=== PATIENT | male | born 1935 | race Caucasian/White ===

== ENCOUNTER 2016-10-30 07:06 | Day surgery (SDC) | payer MEDICARE ==
[2016-10-26 10:10] VITALS: BMI 22.9
[~2016-10-30 07:06] MED LIST: DEXAMETHASONE SOD PHOSPHATE 10 MG/ML 1 ML VIAL IV ONE; HYDROmorphone 1 MG/ML 1 ML SYRINGE IVP PRN; LACTATED RINGERS 1,000 ML IV SCH; ONDANSETRON 4 MG/2 ML VIAL IVP ONE
[2016-10-30] MEDS: CYCLOPENTOLATE 1% OPHTH SOLN 2 ML BTL OP ONE ×3 (07:43→08:04)
[2016-10-30] MEDS: FLURBIPROFEN 0.03% OPHTH DROPS 2.5 ML BTL OP ONE ×3 (07:45→08:08)
[2016-10-30] MEDS: PHENYLEPHRINE 10% OPHTH DROPS 5 ML BTL OP ONE ×3 (07:50→08:11)
[2016-10-30] MEDS ORDERED: LIDOCAINE 1% 20 ML VIAL (10MG/ML) FOR IV START INTRADERMA ONE (07:57)
[2016-10-30 07:58] LABS: Glucose,Whole Blood 139 mg/dL (75-99)
[2016-10-30] MEDS ORDERED: PROPOFOL 10 MG/ML 20 ML VIAL IV ONE (08:19)
[2016-10-30] MEDS ORDERED: LIDOCAINE 1% INJ 10MG/ML (20 ML MDV) ONE (08:19)
[2016-10-30 08:24] LABS: INR 2.3 (<1.1); Prothrombin Time 22.4 sec (9.0-12.0)
[2016-10-30] MEDS ORDERED: HYALURONATE SODIUM INTRAOCULAR 1 EACH SYRINGE (10MG/ML) INTRAOCULA ONE (08:26)
[2016-10-30] MEDS ORDERED: BALANCED SALT IRRIG SOLN COMB2 15 ML IRRIG.SOLN INTRAOCULA ONE (08:26)
[2016-10-30] MEDS ORDERED: EPINEPHrine (PF) 0.5 ML in BALANCED SALT IRRIG SOLN COMB2 500 ML IRRIGATION ONE (08:27)
--- NOTE | 2016-10-30 08:51 | P.OP ---
Date of Procedure: 10/30/16 Procedure(s) Performed: PREOPERATIVE DIAGNOSIS: Cataract, right eye. POSTOPERATIVE DIAGNOSIS: Cataract, right eye. OPERATION: Phacoemulsification cataract, right eye. DESCRIPTION OF PROCEDURE: The patient was taken to the preoperative holding area. Intravenous Propofol was given so as to bring about adequate sedation. The following mixture was given for local anesthesia: 5 mL of 2% lidocaine, 5 mL of 0.75% Marcaine, and 1 mL of Wydase. Approximately 4 mL was injected in the retrobulbar space of the surgical eye. Additional 1 mL was then directed to the temporal area of the surgical eye. This was performed to allow adequate neurological block of the facial muscles. The patient was revived and then taken into the operative room. The patient was prepped and draped in the usual sterile manner for the operative eye. A lid speculum was put into position. The conjunctiva was resected back from the limbus in the 12 o'clock position. Bleeding was controlled with electrocautery. A #69 blade was then used and a half-thickness scleral incision approximately 1-mm posterior to the limbus was made on bare sclera. This was shelved in the clear cornea using a crescent knife. Next a 15-degree blade was used to make a stab incision at the 3 o' clock position at the corneolimbal interface. Keratome blade was then used and the superior wound was extended into the anterior chamber. Viscoelastic was injected into the anterior chamber and to maintain its form. Next, a cystotome was used and a continuous anterior capsulotomy was made without difficulty. Hydrodissection using a blunt cannula and BSS was performed. Phaco probe was then employed and a groove extending from 12 to 6 o'clock in the lens was created. A Baldo wand was used through the stab incision so as to perform a divide and conquer technique. Next an irrigation aspiration probe was utilized and any residual cortex was removed from the eye. Again, viscoelastic was injected into the anterior chamber. An Abiodun posterior chamber lens implant was placed in the cartridge and injected into the anterior chamber without difficulty. The Sin[employer] hook was utilized to spin the lens into position and this was again performed without any difficulty. The irrigation and aspiration probe was again employed and any residual viscoelastic was removed from the eye. Then BSS was injected into the limbal stab incision and the anterior chamber re-inflated. The conjunctiva was reapproximated using electrocautery. One drop of 0.25% Timoptic was placed over the corneal along with TobraDex ophthalmic ointment. Two sterile patches and a Mcfarlane eye shield were taped into position. The patient was transported to the recovery room in stable condition. Pathology: none sent Condition: stable Disposition: same day
[2016-10-30 08:57] VITALS: BP 136/68; PULSE 79; RESP 16; TEMP 98.1
[2016-10-30] MEDS ORDERED: TIMOLOL 0.5% OPHTH SOLN (PF) 0.2 ML DROPERETTE OP ONE (23:00)
[2016-10-30] MEDS ORDERED: GENTAMICIN/PREDNISOL AC OPHTH OINT 3.5GM OPHTHALMIC ONE (23:00)
[2016-10-30] MEDS ORDERED: BUPIVACAINE (PF) 0.75% 5 ML, LIDOCAINE 4% (PF) 5 ML, HYALURONIDASE, HUMAN RECOMB 150 UNIT MISCELLANE ONE ×3 (23:00)
== END 2016-10-30 09:25 | disposition home or self-care (01) ==
LOC: OR 07:06
PROVIDERS: ATTEND Ophthalmology
DX: H26.9 Unspecified cataract (principal); I10 Essential (primary) hypertension; E78.5 Hyperlipidemia, unspecified; I25.10 Atherosclerotic heart disease of native coronary artery without angina pectoris; Z87.891 Personal history of nicotine dependence; I48.91 Unspecified atrial fibrillation; Z79.01 Long term (current) use of anticoagulants; E11.9 Type 2 diabetes mellitus without complications; Z79.4 Long term (current) use of insulin; Z79.84 Long term (current) use of oral hypoglycemic drugs; E07.9 Disorder of thyroid, unspecified; I25.2 Old myocardial infarction; Z79.82 Long term (current) use of aspirin; Z79.899 Other long term (current) drug therapy
CPT/HCPCS: 66984; 85610; V2632; J2001 ×2; J3470; J0171; J2704; 99152; 99153

== ENCOUNTER 2016-12-25 06:44 | Day surgery (SDC) | payer MEDICARE ==
[2016-12-21 09:57] VITALS: BMI 22.9
[~2016-12-25 06:44] MED LIST changes: -DEXAMETHASONE SOD PHOSPHATE 10 MG/ML 1 ML VIAL IV ONE; -HYDROmorphone 1 MG/ML 1 ML SYRINGE IVP PRN; -ONDANSETRON 4 MG/2 ML VIAL IVP ONE
[2016-12-25] MEDS: FLURBIPROFEN 0.03% OPHTH DROPS 2.5 ML BTL OP ONE ×3 (06:58→07:20)
[2016-12-25] MEDS ORDERED: LIDOCAINE 1% 20 ML VIAL (10MG/ML) FOR IV START INTRADERMA ONE (07:00)
[2016-12-25] MEDS: CYCLOPENTOLATE 1% OPHTH SOLN 2 ML BTL OP ONE ×3 (07:02→07:23)
[2016-12-25] MEDS: PHENYLEPHRINE 10% OPHTH DROPS 5 ML BTL OP ONE ×3 (07:05→07:26)
[2016-12-25 07:14] VITALS: RESP 16; TEMP 98.2
[2016-12-25 07:19] LABS: Glucose,Whole Blood 161 mg/dL (75-99)
[2016-12-25] MEDS ORDERED: PROPOFOL 10 MG/ML 20 ML VIAL IV ONE (07:37)
[2016-12-25] MEDS ORDERED: BALANCED SALT IRRIG SOLN COMB2 15 ML IRRIG.SOLN INTRAOCULA ONE (07:46)
[2016-12-25] MEDS ORDERED: HYALURONATE SODIUM INTRAOCULAR 1 EACH SYRINGE (10MG/ML) INTRAOCULA ONE (07:49)
[2016-12-25] MEDS ORDERED: EPINEPHrine (PF) 0.5 ML in BALANCED SALT IRRIG SOLN COMB2 500 ML IRRIGATION ONE (07:51)
--- NOTE | 2016-12-25 08:02 | P.OP ---
Date of Procedure: 12/25/16 Procedure(s) Performed: PREOPERATIVE DIAGNOSIS: Cataract, left eye. POSTOPERATIVE DIAGNOSIS: Cataract, left eye. OPERATION: Phacoemulsification cataract, left eye. DESCRIPTION OF PROCEDURE: The patient was taken to the preoperative holding area. Intravenous Propofol was given so as to bring about adequate sedation. The following mixture was given for local anesthesia: 5 mL of 2% lidocaine, 5 mL of 0.75% Marcaine, and 1 mL of Wydase. Approximately 4 mL was injected in the retrobulbar space of the surgical eye. Additional 1 mL was then directed to the temporal area of the surgical eye. This was performed to allow adequate neurological block of the facial muscles. The patient was revived and then taken into the operative room. The patient was prepped and draped in the usual sterile manner for the operative eye. A lid speculum was put into position. The conjunctiva was resected back from the limbus in the 12 o'clock position. Bleeding was controlled with electrocautery. A #69 blade was then used and a half-thickness scleral incision approximately 1-mm posterior to the limbus was made on bare sclera. This was shelved in the clear cornea using a crescent knife. Next a 15-degree blade was used to make a stab incision at the 3 o' clock position at the corneolimbal interface. Keratome blade was then used and the superior wound was extended into the anterior chamber. Viscoelastic was injected into the anterior chamber and to maintain its form. Next, a cystotome was used and a continuous anterior capsulotomy was made without difficulty. Hydrodissection using a blunt cannula and BSS was performed. Phaco probe was then employed and a groove extending from 12 to 6 o'clock in the lens was created. A Baldo wand was used through the stab incision so as to perform a divide and conquer technique. Next an irrigation aspiration probe was utilized and any residual cortex was removed from the eye. Again, viscoelastic was injected into the anterior chamber. An Abiodun posterior chamber lens implant was placed in the cartridge and injected into the anterior chamber without difficulty. The [employer] hook was utilized to spin the lens into position and this was again performed without any difficulty. The irrigation and aspiration probe was again employed and any residual viscoelastic was removed from the eye. Then BSS was injected into the limbal stab incision and the anterior chamber re-inflated. The conjunctiva was reapproximated using electrocautery. One drop of 0.25% Timoptic was placed over the corneal along with TobraDex ophthalmic ointment. Two sterile patches and a Mcfarlane eye shield were taped into position. The patient was transported to the recovery room in stable condition. Pathology: none sent Condition: stable Disposition: same day
[2016-12-25 08:18] VITALS: BP 119/72; PULSE 63
[2016-12-25 08:19] LABS: Glucose,Whole Blood 166 mg/dL (75-99)
[2016-12-25] MEDS ORDERED: TIMOLOL 0.5% OPHTH SOLN (PF) 0.2 ML DROPERETTE OP ONE (23:00)
[2016-12-25] MEDS ORDERED: GENTAMICIN/PREDNISOL AC OPHTH OINT 3.5GM OPHTHALMIC ONE (23:00)
[2016-12-25] MEDS ORDERED: BUPIVACAINE (PF) 0.75% 5 ML, LIDOCAINE 4% (PF) 5 ML, HYALURONIDASE, HUMAN RECOMB 150 UNIT MISCELLANE ONE ×3 (23:00)
== END 2016-12-25 08:40 | disposition home or self-care (01) ==
LOC: OR 06:44
PROVIDERS: ATTEND Ophthalmology
DX: H26.9 Unspecified cataract (principal); E11.9 Type 2 diabetes mellitus without complications; Z79.4 Long term (current) use of insulin; Z79.84 Long term (current) use of oral hypoglycemic drugs; I25.10 Atherosclerotic heart disease of native coronary artery without angina pectoris; I10 Essential (primary) hypertension; I48.91 Unspecified atrial fibrillation; Z79.01 Long term (current) use of anticoagulants; E07.9 Disorder of thyroid, unspecified; Z86.73 Personal history of transient ischemic attack (TIA), and cerebral infarction without residual deficits; Z79.82 Long term (current) use of aspirin; Z79.899 Other long term (current) drug therapy
CPT/HCPCS: 66984; V2632; J2001; J3470; J0171; J2704

== ENCOUNTER → 2017-02-18 | Outpatient (CLI) | payer MEDICARE ==
--- NOTE | 2017-02-18 15:57 | US ---
EXAMINATION TYPE: US venous doppler duplex LE LT DATE OF EXAM: 02/18/2017 3:46 PM COMPARISON: NONE CLINICAL HISTORY: Swelling LLE R22.42. Symptoms plus skin redness x 1.5 weeks. Patient D/C chemothera py drug then SIDE PERFORMED: Left TECHNIQUE: The lower extremity deep venous system is examined utilizing real time linear array sonog antoine with graded compression, doppler sonography and color-flow sonography. VESSELS IMAGED: Common Femoral Vein Deep Femoral Vein Greater Saphenous Vein * Femoral Vein Popliteal Vein Small Saphenous Vein * Proximal Calf Veins (* superficial vessels) Left Leg: Echoes are noted in Left Femoral Vein at valves, but vein compresses here, otherwise, is n egative for DVT. Multiple left groin nodes are seen with largest = 2.2 x 1.2 x 0.8cm. IMPRESSION: 1. There is echogenicity noted within the left superficial femoral venous valves. Small area of DVT n ot excluded correlate clinically. No evidence of occlusion and there is normal compressibility. 2. Inguinal adenopathy.
== END | disposition home or self-care (01) ==
LOC: RADUSWWP 15:16
PROVIDERS: ATTEND Internal Medicine Hematology & Oncology
DX: I87.8 Other specified disorders of veins (principal); R59.0 Localized enlarged lymph nodes

== ENCOUNTER → 2017-03-04 | Outpatient (CLI) | payer MEDICARE ==
[2017-03-04 18:38] LABS: Blood Urea Nitrogen 24 mg/dL (9-20); Non-African American GFR(MDRD) >60 (>60 ml/min/1.73 sqM)
--- NOTE | 2017-03-04 20:40 | CT ---
EXAMINATION TYPE: CT ChestAbdPelvis w con DATE OF EXAM: 03/04/2017 COMPARISON: 08/11/2016 HISTORY: Gastrointestinal stromal tumor of stomach. Evaluate lymph nodes. CT DLP: 1618.00 mGycm Automated exposure control for dose reduction was used. CONTRAST: CT scan of the chest, abdomen and pelvis is performed with Oral Contrast and with IV Contrast, patien t injected with 100 mL of Omnipaque 300. FINDINGS: The lungs are clear of consolidation. There is no pleural effusion. There is no sign of a pulmonary m ass. Heart is enlarged. There is no pericardial effusion. There is atherosclerotic vascular calcifica tion. The abdominal aorta and thoracic aorta are atheromatous. Ascending aorta measures 4 cm. There i s no evidence of dissection. There are no hilar masses. There is no mediastinal adenopathy. Liver shows no focal defect. Spleen is absent. There is no sign of pancreatic mass. Gallbladder appea rs normal. Bile ducts are not dilated. There is no adrenal mass. Kidneys show satisfactory contrast opacification. There is no hydronephrosi s. There is low-density material in the dependent stomach consistent with ingested food. I see no intestinal wall thickening. There are no dilated loops. There is a 1.5 cm exophytic rounded mass on the posterior left kidney. This appears stable compared t o old CT scan. I see no retroperitoneal adenopathy. Prostate is enlarged. Prostate measures almost 6 cm in diameter. There is no evidence of a bladder mass. I see no pelvic lymphadenopathy. I see no foc al bony destructive process. IMPRESSION: Atherosclerotic vascular disease. 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 Enlarged prostate. Stable exophytic thick-walled left renal cortical cys t. Cardiomegaly. No sign of recurrent tumor. Splenectomy is noted.
== END | disposition home or self-care (01) ==
LOC: RADCTMAIN 17:59
PROVIDERS: ATTEND Internal Medicine Hematology & Oncology
DX: I71.2 Thoracic aortic aneurysm, without rupture (principal); I70.90 Unspecified atherosclerosis; N40.0 Benign prostatic hyperplasia without lower urinary tract symptoms; N28.1 Cyst of kidney, acquired; I51.7 Cardiomegaly; Z90.81 Acquired absence of spleen
CPT/HCPCS: 82565; 84520; 71260; 74177; 36415; Q9967

== ENCOUNTER 2017-03-14 16:26 | Inpatient (IN) | payer MEDICARE ==
[2017-03-14] MEDS ORDERED: SODIUM CHLORIDE 0.9% 500 ML IV STA (16:54)
[2017-03-14] MEDS ORDERED: SODIUM CHLORIDE 0.9% 1,000 ML IV STA (16:54)
--- NOTE | 2017-03-14 17:00 | ED ---
Weakness HPI - General Chief complaint: Weakness Stated complaint: Near Syncope Time Seen by Provider: 03/14/17 16:47 Source: patient, EMS Mode of arrival: EMS - History of Present Illness Initial comments: This 81-year-old white male presents with a complaint of weakness. This apparently occurred this afternoon while he was golfing. He could not make it through his entire round of golf. He does relate that it was quite hot outside. He felt slightly lightheaded but did not have any presyncope or syncope. He apparently was diaphoretic at some point. He denies any chest pain or shortness of breath. He apparently made it home and his called EMS to bring him to the ER. Upon transport his heart rate apparently was down into the 30s. He denies any known previous bradycardia. He does have a cardiac history of previous cardiac stents approximately 6 years ago. He is in atrial fibrillation chronically. He denies any leg pain or swelling. No other complaints or modifying factors. He has had routine stress test in the recent past. His blood sugar was approximately 140 and route. He apparently was somewhat hypotensive at times. He states that he has been eating and drinking well over the past couple of days. It appears that he is on 3 chronotropic medications. - Related Data Home Medications Medication Instructions Recorded Confirmed Atorvastatin [Lipitor] 40 mg PO HS 07/19/16 03/14/17 Digoxin [Lanoxin] 125 mcg PO HS 07/19/16 03/14/17 Insulin Aspart [NovoLOG] See Protocol SQ QID PRN 07/19/16 03/14/17 Insulin Detemir [Levemir] 20 unit SQ QAM 07/19/16 03/14/17 Levothyroxine Sodium [Synthroid] 25 mcg PO [id number] 07/19/16 03/14/17 Lisinopril [Zestril] 20 mg PO DAILY 07/19/16 03/14/17 Warfarin [Coumadin] 3.75 mg PO MO 07/19/16 03/14/17 Warfarin [Coumadin] 7.5 mg PO [id number] 07/19/16 03/14/17 Diltiazem Oral [Cardizem*] 60 mg PO TID 10/26/16 03/14/17 Aspirin 325 mg PO DAILY 03/14/17 03/14/17 metFORMIN HCL 1,000 mg PO DAILY 03/14/17 03/14/17 Previous Rx's Medication Instructions Recorded Metoprolol Tartrate [Lopressor] 25 mg PO BID #60 tab 08/01/16 Allergies Allergy/AdvReac Type Severity Reaction Status Date / Time No Known Allergies Allergy Verified 03/14/17 17:27 Review of Systems ROS Statement: Those systems with pertinent positive or pertinent negative responses have been documented in the HPI. ROS Other: All systems not noted in ROS Statement are negative. Past Medical History Past Medical History: Atrial Fibrillation, Coronary Artery Disease (CAD), Cancer , CVA/TIA, Diabetes Mellitus, GI Bleed, Hypertension, Myocardial Infarction ([place]) , Osteoarthritis (OA), Prostate Disorder, Thyroid Disorder Additional Past Medical History / Comment(s): SOB w/activity, hx gastric cancer , had stroke 2015-some minimal left sided weakness Last Myocardial Infarction Date:: unknown History of Any Multi-Drug Resistant Organisms: None Reported Past Surgical History: Heart Catheterization With Stent, Hernia Repair, Orthopedic Surgery Additional Past Surgical History / Comment(s): 02/23/13 cardiac cath with stent , bilateral inguinal hernia repair, L middle finger colonoscopy, EGD, exp laparotomy splenectomy, partial gastrectomy Past Anesthesia/Blood Transfusion Reactions: No Reported Reaction Additional Past Anesthesia/Blood Transfusion Reaction / Comment(s): blood transfusion 07/20/16- no reaction Date of Last Stent Placement:: 02/23/13 Past Psychological History: No Psychological Hx Reported Smoking Status: Former smoker Past Alcohol Use History: Daily Past Drug Use History: None Reported - Past Family History Father Family Medical History: Cancer Additional Family Medical History / Comment(s): Father of leukemia at the age of 68yrs. pts mom had ra and lived to age 93 Mother Family Medical History: No Reported History Additional Family Medical History / Comment(s): Mother was healthy and at the age of 94 yrs. General Exam - General Exam Comments Initial Comments: GENERAL: The patient is well nourished and well hydrated. VITAL SIGNS: Heart rate, blood pressure, respiratory rate reviewed as recorded in nurse's notes. EYES: Pupils are round and reactive. Extraocular movements are intact. No conjunctival / lid redness or swelling. ENT: No external evidence of injury, swelling, or ecchymosis. Airway is patent. Throat is clear. NECK: Nontender. No swelling or evidence of injury. No subcutaneous emphysema. Trachea is midline. No thyroid mass. HEART: Bradycardic heart rate noted with a heart rate down to the high 30s at times. Good peripheral pulses. No peripheral edema noted. LUNGS/CHEST: Breath sounds clear and equal bilaterally. No rales, rhonchi, or wheezes. No ecchymosis, subcutaneous emphysema, or tenderness. ABDOMEN: Abdomen soft without tenderness. No palpable masses or organomegaly. No peritoneal signs. No abdominal wall swelling or ecchymosis. EXTREMITIES: No extremity tenderness. Normal muscle tone and function. No thoracolumbar tenderness. NEUROLOGIC: Sensation is grossly intact. Cranial nerve exam reveals face is symmetrical, tongue is midline, speech is clear. SKIN: No abrasions or ecchymosis is noted. No induration or masses noted. PSYCHIATRIC: Alert and oriented. Appropriate behavior and judgment. Course Vital Signs 03/14/17 03/14/17 03/14/17 16:28 16:40 16:47 Temperature 97.4 F L 97.0 F L Pulse Rate 44 L 53 L 80 Respiratory 16 16 16 Rate Blood Pressure 86/50 105/58 95/53 O2 Sat by Pulse 95 96 100 Oximetry 03/14/17 03/14/17 03/14/17 16:59 17:20 17:41 Temperature Pulse Rate 37 L 44 L 51 L Respiratory 16 18 16 Rate Blood Pressure 80/42 95/53 101/58 O2 Sat by Pulse 98 98 100 Oximetry 03/14/17 18:03 Temperature Pulse Rate 56 L Respiratory 16 Rate Blood Pressure 101/51 O2 Sat by Pulse 96 Oximetry Medical Decision Making - Medical Decision Making The patient was seen and examined. All diagnostics were reviewed. He is placed on a library monitor and this does show a decreased heart rate down into the high 30s at times. The EKG shows atrial fibrillation with slow ventricular response at a heart rate of 52. There is no acute ST-T wave changes noted. The QRS is 80 and the QTc interval is 409. The chest x-ray does not show any acute processes. The laboratory shows a mild anemia but otherwise no acute process. It appears that he does have symptoms potentially consistent with a symptomatic bradycardia. It is felt as though he benefit from admission to the hospital. He is reluctantly agreeable. Case will be discussed with internal medicine and cardiology consult will be obtained. - Lab Data Result diagrams: 03/14/17 16:45 03/14/17 16:45 Lab Results 03/14/17 03/14/17 03/14/17 Range/Units 16:45 16:45 16:45 WBC 8.7 (3.8-10.6) k/uL RBC 3.78 L (4.30-5.90) m/uL Hgb 11.8 L (13.0-17.5) gm/dL Hct 35.1 L (39.0-53.0) % MCV 92.8 (80.0-100.0) fL MCH 31.2 (25.0-35.0) pg MCHC 33.6 (31.0-37.0) g/dL RDW 17.7 H (11.5-15.5) % Plt Count 220 (150-450) k/uL Neutrophils % 72 % Lymphocytes % 13 % Monocytes % 11 % Eosinophils % 2 % Basophils % 0 % Neutrophils # 6.3 (1.3-7.7) k/uL Lymphocytes # 1.1 (1.0-4.8) k/uL Monocytes # 0.9 (0-1.0) k/uL Eosinophils # 0.2 (0-0.7) k/uL Basophils # 0.0 (0-0.2) k/uL Poikilocytosis Slight Anisocytosis Slight PT (9.0-12.0) sec INR (<1.1) APTT (22.0-30.0) sec Sodium 142 (137-145) mmol/L Potassium 4.3 (3.5-5.1) mmol/L Chloride 108 H (98-107) mmol/L Carbon Dioxide 22 (22-30) mmol/L Anion Gap 12 mmol/L BUN 27 H (9-20) mg/dL Creatinine 1.10 (0.66-1.25) mg/dL Est GFR (MDRD) Af Amer >60 (>60 ml/min/1.73 sqM) Est GFR (MDRD) Non-Af >60 (>60 ml/min/1.73 sqM) Glucose 144 H (74-99) mg/dL Calcium 9.3 (8.4-10.2) mg/dL Phosphorus 3.2 (2.5-4.5) mg/dL Magnesium 2.1 (1.6-2.3) mg/dL Total Bilirubin 0.7 (0.2-1.3) mg/dL AST 32 (17-59) U/L ALT 42 (21-72) U/L Alkaline Phosphatase 146 H (38-126) U/L Total Creatine Kinase 115 (55-170) U/L CK-MB (CK-2) 1.6 (0.0-2.4) ng/mL CK-MB (CK-2) Rel Index 1.4 Troponin I <0.012 (0.000-0.034) ng/mL Total Protein 6.4 (6.3-8.2) g/dL Albumin 3.8 (3.5-5.0) g/dL TSH 8.170 H (0.465-4.680) mIU/L Digoxin 0.6 ng/mL 03/14/17 Range/Units 16:45 WBC (3.8-10.6) k/uL RBC (4.30-5.90) m/uL Hgb (13.0-17.5) gm/dL Hct (39.0-53.0) % MCV (80.0-100.0) fL MCH (25.0-35.0) pg MCHC (31.0-37.0) g/dL RDW (11.5-15.5) % Plt Count (150-450) k/uL Neutrophils % % Lymphocytes % % Monocytes % % Eosinophils % % Basophils % % Neutrophils # (1.3-7.7) k/uL Lymphocytes # (1.0-4.8) k/uL Monocytes # (0-1.0) k/uL Eosinophils # (0-0.7) k/uL Basophils # (0-0.2) k/uL Poikilocytosis Anisocytosis PT 24.0 H (9.0-12.0) sec INR 2.5 (<1.1) APTT 27.5 (22.0-30.0) sec Sodium (137-145) mmol/L Potassium (3.5-5.1) mmol/L Chloride (98-107) mmol/L Carbon Dioxide (22-30) mmol/L Anion Gap mmol/L BUN (9-20) mg/dL Creatinine (0.66-1.25) mg/dL Est GFR (MDRD) Af Amer (>60 ml/min/1.73 sqM) Est GFR (MDRD) Non-Af (>60 ml/min/1.73 sqM) Glucose (74-99) mg/dL Calcium (8.4-10.2) mg/dL Phosphorus (2.5-4.5) mg/dL Magnesium (1.6-2.3) mg/dL Total Bilirubin (0.2-1.3) mg/dL AST (17-59) U/L ALT (21-72) U/L Alkaline Phosphatase (38-126) U/L Total Creatine Kinase (55-170) U/L CK-MB (CK-2) (0.0-2.4) ng/mL CK-MB (CK-2) Rel Index Troponin I (0.000-0.034) ng/mL Total Protein (6.3-8.2) g/dL Albumin (3.5-5.0) g/dL TSH (0.465-4.680) mIU/L Digoxin ng/mL Disposition Clinical Impression: Weakness, Bradycardia, Hypotension, Anemia, Dehydration Disposition: ADMITTED IP TO [facility] Condition: Fair Referrals: None,Stated [REFERRING] - 1-2 days Time of Disposition: 18:16
[2017-03-14] MEDS ORDERED: ONDANSETRON 4 MG/2 ML VIAL IVP STA (17:13)
[2017-03-14 17:15] LABS: INR 2.5 (<1.1); Partial Thromboplastin Time 27.5 sec (22.0-30.0)
[2017-03-14 17:17] LABS: Anisocytosis Slight; Basophils % (A) 0 %; CH 30.4; Eosinophils # (A) 0.2 k/uL (0-0.7); Eosinophils % (A) 2 %; HCT 35.1 % (39.0-53.0); HDW 3.49; HGB 11.8 gm/dL (13.0-17.5); Luc # (Auto) 0.16; Luc % (Auto) 2; Lymphocytes # (A) 1.1 k/uL (1.0-4.8); Lymphocytes % (A) 13 %; MCH 31.2 pg (25.0-35.0); MCHC 33.6 g/dL (31.0-37.0); MCV 92.8 fL (80.0-100.0); Mean Platelet Volume 8.6; Monocytes # (A) 0.9 k/uL (0-1.0); Monocytes % (A) 11 %; Neutrophils # (A) 6.3 k/uL (1.3-7.7); Neutrophils % (A) 72 %; Poikilocytosis Slight; RBC 3.78 m/uL (4.30-5.90); RDW 17.7 % (11.5-15.5); WBC 8.7 k/uL (3.8-10.6); WBC (Perox) 9.23
[2017-03-14 17:24] LABS: ALT 42 U/L (21-72); AST 32 U/L (17-59); Alkaline Phosphatase 146 U/L (38-126); Anion Gap 12 mmol/L; Blood Urea Nitrogen 27 mg/dL (9-20); Calcium 9.3 mg/dL (8.4-10.2); Carbon Dioxide 22 mmol/L (22-30); Chloride 108 mmol/L (98-107); Digoxin 0.6 ng/mL; Glucose 144 mg/dL (74-99); Magnesium 2.1 mg/dL (1.6-2.3); Non-African American GFR(MDRD) >60 (>60 ml/min/1.73 sqM); Phosphorous 3.2 mg/dL (2.5-4.5); Potassium 4.3 mmol/L (3.5-5.1); Sodium 142 mmol/L (137-145); Total Bilirubin 0.7 mg/dL (0.2-1.3); Total Protein 6.4 g/dL (6.3-8.2)
[2017-03-14 17:38] LABS: Creatine Kinase 115 U/L (55-170)
--- NOTE | 2017-03-14 17:42 | XR ---
EXAMINATION TYPE: XR chest 2V DATE OF EXAM: 03/14/2017 COMPARISON: 08/08/2016 HISTORY: Syncope TECHNIQUE: Frontal and lateral views of the chest are obtained. FINDINGS: Heart is enlarged. There is no gross heart failure. There is small linear density at the l eft lung base and right midlung. Thoracic aorta is atheromatous. There is no pleural effusion. Bony t horax is intact. IMPRESSION: Cardiomegaly. There is new bilateral mild subsegmental atelectasis compared to old exam. No heart failure.
[2017-03-14 17:51] LABS: Creatine Kinase MB 1.6 ng/mL (0.0-2.4); Troponin I <0.012 ng/mL (0.000-0.034)
[2017-03-14] MEDS ORDERED: METOCLOPRAMIDE 5 MG/ML 2 ML VIAL IVP STA (18:21)
[2017-03-14] MEDS ORDERED: ONDANSETRON 4 MG/2 ML VIAL IVP PRN (18:58)
[2017-03-14] MEDS ORDERED: ACETAMINOPHEN TAB 325 MG TAB PO PRN (18:58)
[2017-03-14] MEDS ORDERED: NALOXONE 0.4 MG/ML 1 ML VIAL IV PRN (18:58)
[2017-03-14 19:12] LABS: Glucose,Whole Blood 168 mg/dL (75-99)
[2017-03-14] MEDS ORDERED: PANTOPRAZOLE 40 MG TABLET PO STA (19:12)
[2017-03-14] MEDS ORDERED: WARFARIN 7.5 MG TAB PO SCH (20:00)
[2017-03-14 20:25] LABS: Glucose,Whole Blood 184 mg/dL (75-99)
[2017-03-14 20:58] VITALS: BMI 21.5
[2017-03-14] MEDS ORDERED: ATORVASTATIN 40 MG TAB PO SCH ×2 (21:00)
[2017-03-14] MEDS ORDERED: INSULIN LISPRO (humaLOG) 300 UNIT/3 ML VIAL SQ SCH (21:00)
[2017-03-14 21:21] LABS: Hemoglobin A1C 6.4 % (4.2-6.1)
[2017-03-14] MEDS: INSULIN LISPRO (humaLOG) 300 UNIT/3 ML VIAL SQ SCH (21:22)
[2017-03-14] MEDS: METOPROLOL TARTRATE 25 MG TAB PO SCH (21:22)
[2017-03-14 23:24] LABS: Creatine Kinase 105 U/L (55-170)
[2017-03-14 23:38] LABS: Creatine Kinase MB 1.4 ng/mL (0.0-2.4); Troponin I <0.012 ng/mL (0.000-0.034)
[2017-03-15 05:59] LABS: Creatine Kinase 93 U/L (55-170)
[2017-03-15 06:13] LABS: Creatine Kinase MB 1.3 ng/mL (0.0-2.4); Troponin I <0.012 ng/mL (0.000-0.034)
[2017-03-15] MEDS ORDERED: LEVOTHYROXINE 50 MCG TAB PO SCH (06:30)
[2017-03-15] MEDS ORDERED: LEVOTHYROXINE 25 MCG TAB PO SCH ×2 (06:30→07:30)
[2017-03-15 06:38] LABS: Glucose,Whole Blood 230 mg/dL (75-99)
[2017-03-15] MEDS: INSULIN LISPRO (humaLOG) 300 UNIT/3 ML VIAL SQ SCH ×2 (06:45→12:13)
[2017-03-15] MEDS ORDERED: PANTOPRAZOLE 40 MG TABLET PO SCH (09:00)
[2017-03-15] MEDS ORDERED: INSULIN DETEMIR 100 UNIT/ML 10 ML VIAL SQ SCH ×2 (09:00)
[2017-03-15] MEDS ORDERED: ASPIRIN 325 MG TAB PO SCH ×2 (09:00)
[2017-03-15] MEDS ORDERED: LISINOPRIL 20 MG TAB PO SCH ×2 (09:00)
[2017-03-15] MEDS ORDERED: metFORMIN 500 MG TAB PO SCH (09:00)
[2017-03-15 11:06] LABS: Appearance,Urine Clear (Clear); Bilirubin,Urine Negative (Negative); Glucose,Urine (UA) 4+ (Negative); Leukocyte Esterase,Urine Negative (Negative); Nitrite,Urine Negative (Negative); Protein,Urine Negative (Negative); Specific Gravity,Urine 1.016 (1.001-1.035); UA Billing (MACRO vs. MICRO) CHEM; Urobilinogen,Urine <2.0 mg/dL (<2.0)
[2017-03-15 11:30] LABS: Ketones,Urine 2+ (Negative)
[2017-03-15 11:37] LABS: Glucose,Whole Blood 172 mg/dL (75-99)
[2017-03-15] MEDS: METOPROLOL TARTRATE 25 MG TAB PO SCH (12:13)
[2017-03-15 13:28] VITALS: BP 144/94; PULSE 80; RESP 18; TEMP 97.8
[2017-03-16] MEDS ORDERED: LEVOTHYROXINE 75 MCG TAB PO SCH (06:30)
--- NOTE | 2017-03-16 12:13 | CONS ---
Mr. Cohen is an 81 year old gentleman who came to the hospital with a complaint of weakness. This patient was golfing yesterday in the afternoon. The weather was very hot and he says he felt lightheadedness but he did not pass out. He was somewhat diaphoretic. He did not have any chest pain or shortness of breath. The patient subsequently was brought into the emergency room. In the emergency room, the patient was round to be in atrial fibrillation with intermittent slow rate and so the patient is admitted. This patient has known history of chronic atrial fibrillation. He has a history of prior stent placement six years ago. The patient had surgery for gastric carcinoma and subsequently, the patient was admitted with stroke because of subtherapeutic INR. The patient's home medications include Lipitor, Lanoxin, Levemir. Synthroid, Zestril, Coumadin and Metformin. Past medical history includes a prior history of cardiac catheterization with stent placement, history of chronic atrial fibrillation, history of splenectomy and partial gastrectomy, bilateral inguinal hernia repair and history of CVA. Physical examination at present reveals an 81 year old gentleman who does not appear to be in any acute distress at present. The patient's heart rate now is 80 to 85 per minute. Blood pressure is 134/73 mmHg. Head and ENT examination is negative. Neck is supple. There is no increase in jugular venous pressure. Both the carotid pulses are felt. There is no bruit. Chest is symmetrical. Heart the PMI is not felt. First and second heart sounds are normal. There is no evidence of any murmur. Lungs are clinically clear to auscultation and percussion. Abdomen is soft. Liver and spleen are not enlarged. Bowel sounds are heard. Extremities, peripheral pulsations are 2+. EKG shows evidence of atrial fibrillation. Initially slow ventricular rate was noted but now the rate is in the range of 70 to 80 beats per minute. The patient's Digoxin and Cardizem was put on hold. The patient's TSH is 8.17. FINAL IMPRESSION: This patient is admitted with weakness and atrial fibrillation with slow ventricular rate. The patient's heart rate is better now. We will discontinue Cardizem and Lanoxin. The patient has slightly elevated TSH. We will recommend to increase the Synthroid to 75 mcg daily. The patient can be ambulated and can be discharged home on beta georgina. MTDD
--- NOTE | 2017-03-16 12:49 | HP ---
I am covering for Dr. Riley. DATE OF ADMISSION: 03/14/2017 CHIEF COMPLAINTS: Weakness. HISTORY OF PRESENT ILLNESS: This 81 year old gentleman with a past medical history of multiple medical problems including atrial fibrillation, history of CAD, CVA, diabetes mellitus Type 2, being followed by Dr. Riley in the outpatient setting was admitted with generalized weakness. The patient was bradycardic in the 30s. The patient also on Digoxin, Cardizem and Lopressor. The patient is admitted for further evaluation and treatment. The patient is complaining of weakness. There is no history of any fever, rigors or chills. No history of headache, loss of consciousness or seizures at this time. PAST MEDICAL HISTORY: History of atrial fibrillation, CAD, CVA, TIA, diabetes, GERD, GI bleed, CAD/stent. Home medications are: 1. Aspirin 320 mg daily. 2. Metformin 1000 mg daily. 3. Coumadin 7.5 Saturday, Saturday, Saturday, , Saturday and and 3.75 mg on Saturday. 4. Lopressor 25 mg p.o. b.i.d. 5. Zestril 20 mg daily. 6. Synthroid 25 mcg daily. 7. Levemir 20 units subcu. 8. NovoLog to scale. 9. Cardizem 10. Lanoxin 120 mcg p.o. q.h.s. 11. Lipitor Allergies are none. FAMILY HISTORY: History of cancer. SOCIAL HISTORY: Previous history of smoking. Occasional alcohol intake. REVIEW OF SYSTEMS: HEENT: No diminished vision or hearing. CARDIOVASCULAR: No angina or palpitations. RESPIRATORY: As mentioned earlier. GI: No nausea or vomiting. : No dysuria. NERVOUS SYSTEM: As mentioned. ALLERGY/IMMUNOLOGY: No asthma or hayfever. MUSCULOSKELETAL: As mentioned earlier. HEMATOLOGY/ONCOLOGY: No history of anemia. ENDOCRINE: As mentioned earlier. CONSTITUTIONAL: As mentioned earlier. DERMATOLOGY: Negative. RHEUMATOLOGY: Negative. PSYCHIATRIC: Negative. PHYSICAL EXAMINATION: Alert and oriented times three. Pulse 66. Blood pressure 130/87. Respiratory 16. Temperature 97.3. Pulse ox 97% on room air. HEENT: Conjunctivae normal. NECK: No JVD. CARDIOVASCULAR: S1, S2 muffled. RESPIRATORY: Breath sounds diminished at the bases. A few scattered rhonchi and crackles. ABDOMEN: Soft, nontender. LEGS: No edema. No swelling. CENTRAL NERVOUS SYSTEM: No focal deficits. LABS: Hemoglobin 11.8, other labs noted. ASSESSMENT: 1. Symptomatic bradycardia. 2. Atrial fibrillation. 3. Increased TSH. 4. Diabetes mellitus Type 2. 5. Hypertension. 6. Hyperlipidemia. 7. Degenerative joint disease. 8. Hypothyroidism. RECOMMENDATIONS AND DISCUSSION: In this 81 year old gentleman who presented with multiple complex medical issues, we will monitor the patient closely, continue the current medications, continue symptomatic treatment. Hold the Digoxin and Cardizem. Cardiology consultation. Would also check free T4. Recommend free T4 and free T3. Otherwise, recommend increased dose of thyroid to 50 mcg. Further recommendations to follow. MTDD
--- NOTE | 2017-03-17 14:08 | DS ---
FINAL DIAGNOSES: 1. Bradycardia secondary to medications. 2. Atrial fibrillation. 3. History of coronary artery disease. 4. Diabetes mellitus Type 2. 5. History of gastrointestinal bleed. 6. Multiple other medical issues. HISTORY OF PRESENT ILLNESS: This 81 year old gentleman admitted with significant bradycardia. The patient is on Cardizem, Digoxin and Lopressor. Digoxin ad Cardizem were stopped by cardiology and recommended outpatient follow. The patient improved significantly. The TSH was high and dose of Synthroid increased. On examination, vital signs are stable. Cardiovascular S1, S2 muffled. Abdomen soft. Nervous system: No focal deficits. DISCHARGE ADVICE AND MEDICATIONS: 1. Diet is cardiac. 2. Activity limited until follow up. 3. Follow with with Dr. Carlos Riley in two to three days. 4. Follow with cardiology as recommendation. 5. Ecotrin 320 mg daily. 6. Lipitor 40 mg q.h.s. 7. NovoLog scale as before. 8. Levemir 20 units subcu in the morning. 9. Synthroid 75 mcg po daily, note increased dose. 10. Zestril 20 mg po daily. 11. Metformin 1000 mg po daily. 12. Lopressor 25 mg po b.i.d. 13. Coumadin 3.75 Saturday and 7.5 mg other days. 14. Follow up labs with Dr. Riley. DYLAN
[2017-03-18] MEDS ORDERED: WARFARIN 7.5 MG TAB PO SCH (18:00)
== END 2017-03-15 14:54 | disposition home or self-care (01) | DRG 315 ==
LOC: SUPCPDRO 16:26 → EC 16:26 → 6SEL 18:59
PROVIDERS: ADMIT Internal Medicine; ATTEND Internal Medicine
DX: I95.9 Hypotension, unspecified (principal); I69.354 Hemiplegia and hemiparesis following cerebral infarction affecting left non-dominant side; R00.1 Bradycardia, unspecified; E11.9 Type 2 diabetes mellitus without complications; E86.0 Dehydration; I10 Essential (primary) hypertension; I48.2 Chronic atrial fibrillation; D64.9 Anemia, unspecified; E03.9 Hypothyroidism, unspecified; E78.5 Hyperlipidemia, unspecified; T46.0X5A Adverse effect of cardiac-stimulant glycosides and drugs of similar action, initial encounter; T46.1X5A Adverse effect of calcium-channel blockers, initial encounter; I25.10 Atherosclerotic heart disease of native coronary artery without angina pectoris; K21.9 Gastro-esophageal reflux disease without esophagitis; M19.90 Unspecified osteoarthritis, unspecified site; Z79.4 Long term (current) use of insulin; Z79.82 Long term (current) use of aspirin; Z79.899 Other long term (current) drug therapy; Z87.891 Personal history of nicotine dependence; Z95.5 Presence of coronary angioplasty implant and graft; Z85.028 Personal history of other malignant neoplasm of stomach; Y92.009 Unspecified place in unspecified non-institutional (private) residence as the place of occurrence of the external cause
CPT/HCPCS: 36415; 71020; 80053; 80162; 81003; 82550; 82553; 83036; 83735; 84100; 84439; 84443; 84481; 84484; 85025; 85610; 85730; 93005; 96361; 96374; 96375; 99285

== ENCOUNTER → 2017-08-05 | Outpatient (CLI) | payer MEDICARE ==
[2017-08-05 08:38] LABS: Blood Urea Nitrogen 20 mg/dL (9-20); Non-African American GFR(MDRD) >60 (>60 ml/min/1.73 sqM)
--- NOTE | 2017-08-05 15:53 | CT ---
EXAMINATION TYPE: CT ChestAbdPelvis w con DATE OF EXAM: 08/05/2017 INDICATION: Gastrointestinal stromal tumor or stomach COMPARISON: 03/04/2017 CT DLP: 648.6 mGycm CONTRAST: Performed with Oral Contrast and with IV Contrast, patient injected with 100 mL of Omnipaque 300. TECHNIQUE: Axial images at 5 mm thick sections. Reconstructed images in the coronal plane. Delayed images through the kidneys. FINDINGS: CT CHEST: Thyroid is not well visualized during this exam No suspicious lung nodules or focal infiltrates are present. No enlarged mediastinal or hilar adenopathy is evident. The ascending aorta diameter at the level of the main pulmonary artery is 3.9 cm. The main pulmonary artery diameter at the bifurcation is 2.5 cm. Vascular calcifications within the aorta. CT ABDOMEN: Postsurgical changes are at the gastric cardia portion of the stomach. No suspicious mass es are identified. Wall thickening be difficult to exclude. No suspicious abdominal adenopathy is leonie dent. Liver: Liver has diminished density compatible some moderate fatty infiltration of liver. Spleen: Surgically resected. Pancreas: Normal as visualized. Adrenal glands: The adrenal glands are normal. Gallbladder: Normal Kidneys: No masses are evident. No hydronephrosis is present. No cysts are present. Delayed images were obtained through the kidneys, which remain unremarkable. Aorta: Vascular calcification is within the aorta. Aorta tapers normally to the bifurcation. Inferior vena cava: Normal. CT PELVIS: Loops of bowel within the abdomen and pelvis are normal. There are loops of bowel which are incom pletely distended or lack oral contrast limiting their evaluation. Contrast is probably within the pr oximal to mid small bowel loops. Diverticular changes are noted in the proximal sigmoid colon. Fecal debris is within the colon. Appendix: Normal as visualized. Urinary bladder: Normal. Genitourinary structures: Prostate is very prominent. Osseous structures: No suspicious lytic or sclerotic lesions. Sacroiliac joint degenerative changes a re present. Some facet degenerative changes are within the lumbar spine. IMPRESSIONS: 1. Postsurgical changes. 2. No suspicious adenopathy
== END | disposition home or self-care (01) ==
LOC: RADCTMAIN 07:58
PROVIDERS: ATTEND Internal Medicine Hematology & Oncology
DX: C49.A2 Gastrointestinal stromal tumor of stomach (principal); Z98.890 Other specified postprocedural states
CPT/HCPCS: 82565; 84520; 71260; 74177; 36415; Q9967

== ENCOUNTER 2018-01-24 18:26 | Emergency (ER) | payer MEDICARE ==
[2018-01-24] MEDS ORDERED: SODIUM CHLORIDE 0.9% 1,000 ML IV STA (18:51)
[2018-01-24] MEDS ORDERED: SODIUM CHLORIDE 0.9% 500 ML IV STA (18:51)
--- NOTE | 2018-01-24 18:55 | ED ---
General Adult HPI - General Chief complaint: Syncope Stated complaint: Diabetic Time Seen by Provider: 01/24/18 18:44 Source: patient, EMS Mode of arrival: EMS Limitations: no limitations - History of Present Illness Initial comments: This 82-year-old white male presents with with a complaint of some presyncope. He apparently was out to eat dinner and became somewhat lightheaded and slightly out of it per . She states that he was very pale. He last ate around noon today. This apparently occurred just shortly prior to arrival. They gave him some orange juice at the restaurant and then his blood sugar did come up to approximately 89 per EMS. He is a diabetic. He relates that his blood sugars have been running fairly well during the day recently and somewhat higher at night. He denies any chest pain, shortness of breath, syncope, or other complaints or modifying factors. He states that he feels quite well at this point. - Related Data Home Medications Medication Instructions Recorded Confirmed Atorvastatin [Lipitor] 40 mg PO HS 07/19/16 01/24/18 Insulin Aspart [NovoLOG See Protocol SQ ACHS 07/19/16 01/24/18 (formulary)] Insulin Detemir [Levemir] 20 unit SQ QAM 07/19/16 01/24/18 Lisinopril [Zestril] 20 mg PO DAILY 07/19/16 01/24/18 Warfarin [Coumadin] 3.75 mg PO TU 07/19/16 01/24/18 Warfarin [Coumadin] 7.5 mg PO SUMOWETHFRSA 07/19/16 01/24/18 metFORMIN HCL 500 mg PO BID 03/14/17 01/24/18 Ascorbic Acid [Vitamin C] 500 mg PO DAILY 01/24/18 01/24/18 Aspirin EC [Ecotrin] 325 mg PO DAILY 01/24/18 01/24/18 Magnesium Oxide [Mag-Ox] 250 mg PO DAILY 01/24/18 01/24/18 Multivitamins, Thera [Multivitamin 1 tab PO DAILY 01/24/18 01/24/18 (formulary)] Previous Rx's Medication Instructions Recorded Metoprolol Tartrate [Lopressor] 25 mg PO BID #60 tab 08/01/16 Levothyroxine Sodium [Synthroid] 75 mcg PO DAILY@0630 #30 tab 03/15/17 Allergies Allergy/AdvReac Type Severity Reaction Status Date / Time No Known Allergies Allergy Verified 01/24/18 19:35 Review of Systems ROS Statement: Those systems with pertinent positive or pertinent negative responses have been documented in the HPI. ROS Other: All systems not noted in ROS Statement are negative. Past Medical History Past Medical History: Atrial Fibrillation, Coronary Artery Disease (CAD), Cancer , CVA/TIA, Diabetes Mellitus, GI Bleed, Hyperlipidemia, Hypertension, Myocardial Infarction (MA), Osteoarthritis (OA), Prostate Disorder, Thyroid Disorder Additional Past Medical History / Comment(s): SOB w/activity, hx gastric cancer , had stroke 2015-some minimal left sided weakness Last Myocardial Infarction Date:: unknown History of Any Multi-Drug Resistant Organisms: None Reported Past Surgical History: Heart Catheterization With Stent, Hernia Repair, Orthopedic Surgery Additional Past Surgical History / Comment(s): 02/23/13 cardiac cath with stent , bilateral inguinal hernia repair, L middle finger colonoscopy, EGD, exp laparotomy splenectomy, partial gastrectomy Past Anesthesia/Blood Transfusion Reactions: No Reported Reaction Additional Past Anesthesia/Blood Transfusion Reaction / Comment(s): blood transfusion 07/20/16- no reaction Date of Last Stent Placement:: 02/23/13 Past Psychological History: No Psychological Hx Reported Smoking Status: Former smoker Past Alcohol Use History: Daily Past Drug Use History: None Reported - Past Family History Father Family Medical History: Cancer Additional Family Medical History / Comment(s): Father of leukemia at the age of 68yrs. pts mom had ra and lived to age 93 Mother Family Medical History: No Reported History Additional Family Medical History / Comment(s): Mother was healthy and at the age of 94 yrs. General Exam - General Exam Comments Initial Comments: GENERAL: The patient is well nourished and well hydrated. VITAL SIGNS: Heart rate, blood pressure, respiratory rate reviewed as recorded in nurse's notes. EYES: Pupils are round and reactive. Extraocular movements are intact. No conjunctival / lid redness or swelling. ENT: No external evidence of injury, swelling, or ecchymosis. Airway is patent. Throat is clear. NECK: Nontender. No swelling or evidence of injury. No subcutaneous emphysema. Trachea is midline. No thyroid mass. HEART: Regular rate and rhythm. Good peripheral pulses. LUNGS/CHEST: Breath sounds clear and equal bilaterally. No rales, rhonchi, or wheezes. No ecchymosis, subcutaneous emphysema, or tenderness. ABDOMEN: Abdomen soft without tenderness. No palpable masses or organomegaly. No peritoneal signs. No abdominal wall swelling or ecchymosis. EXTREMITIES: No extremity tenderness. Normal muscle tone and function. No thoracolumbar tenderness. NEUROLOGIC: Sensation is grossly intact. Cranial nerve exam reveals face is symmetrical, tongue is midline, speech is clear. SKIN: No abrasions or ecchymosis is noted. No induration or masses noted. PSYCHIATRIC: Alert and oriented. Appropriate behavior and judgment. Limitations: no limitations Course Vital Signs 01/24/18 01/24/18 01/24/18 18:43 19:35 19:49 Temperature 97.6 F Pulse Rate 83 Pulse Rate [ 85 Sitting Circuit Rider] Pulse Rate [ 85 Standing Circuit Rider ] Pulse Rate [ 87 Supine Circuit Rider] Respiratory 18 17 Rate Blood Pressure 165/93 Blood Pressure 148/74 [Right Arm Sitting] Blood Pressure 158/88 [Right Arm Standing] Blood Pressure 131/71 [Right Arm Supine] O2 Sat by Pulse 95 97 Oximetry Medical Decision Making - Medical Decision Making The patient was seen and examined. All diagnostics were reviewed. An IV is started and he is hydrated. The EKG shows evidence of atrial fibrillation at a rate of 81. There is no acute ST-T wave changes noted. The ME intervals not measurable, QRS duration is 76, and the QTc interval is 434. He does have chronic atrial fibrillation and is on Coumadin for this. The laboratories all essentially within normal limits with a therapeutic Coumadin/INR level at 2.2. The blood sugar is 141 at this point but he was fed in the ER as well. He states that he feels back to normal on initial evaluation and on recheck. It is felt as though his blood sugar likely did drop. He is counseled regarding hypoglycemia in detail and need for frequent snacks. He understands and leaves in no distress. - Lab Data Result diagrams: 01/24/18 19:27 01/24/18 19:27 Lab Results 01/24/18 01/24/18 01/24/18 Range/Units 19: 19:27 19:27 WBC 9.8 (3.8-10.6) k/uL RBC 4.64 (4.30-5.90) m/uL Hgb 14.9 (13.0-17.5) gm/dL Hct 45.4 (39.0-53.0) % MCV 97.9 (80.0-100.0) fL MCH 32.0 (25.0-35.0) pg MCHC 32.7 (31.0-37.0) g/dL RDW 14.7 (11.5-15.5) % Plt Count 159 (150-450) k/uL Neutrophils % 79 % Lymphocytes % 12 % Monocytes % 7 % Eosinophils % 1 % Basophils % 0 % Neutrophils # 7.7 (1.3-7.7) k/uL Lymphocytes # 1.1 (1.0-4.8) k/uL Monocytes # 0.6 (0-1.0) k/uL Eosinophils # 0.1 (0-0.7) k/uL Basophils # 0.0 (0-0.2) k/uL PT (9.0-12.0) sec INR (<1.2) APTT (22.0-30.0) sec Sodium 142 (137-145) mmol/L Potassium 4.4 (3.5-5.1) mmol/L Chloride 102 (98-107) mmol/L Carbon Dioxide 23 (22-30) mmol/L Anion Gap 17 mmol/L BUN 22 H (9-20) mg/dL Creatinine 0.80 (0.66-1.25) mg/dL Est GFR (CKD-EPI)AfAm >90 (>60 ml/min/1.73 sqM) Est GFR (CKD-EPI)NonAf 84 (>60 ml/min/1.73 sqM) Glucose 141 H (74-99) mg/dL POC Glucose (mg/dL) (75-99) mg/dL POC Glu Launch Steward ID Calcium 9.4 (8.4-10.2) mg/dL Total Bilirubin 0.9 (0.2-1.3) mg/dL AST 43 (17-59) U/L ALT 39 (21-72) U/L Alkaline Phosphatase 110 (38-126) U/L Total Creatine Kinase 147 (55-170) U/L CK-MB (CK-2) 2.7 H* (0.0-2.4) ng/mL CK-MB (CK-2) Rel Index 1.8 Troponin I <0.012 (0.000-0.034) ng/mL Total Protein 7.2 (6.3-8.2) g/dL Albumin 4.3 (3.5-5.0) g/dL 01/24/18 01/24/18 Range/Units 19:47 20:11 WBC (3.8-10.6) k/uL RBC (4.30-5.90) m/uL Hgb (13.0-17.5) gm/dL Hct (39.0-53.0) % MCV (80.0-100.0) fL MCH (25.0-35.0) pg MCHC (31.0-37.0) g/dL RDW (11.5-15.5) % Plt Count (150-450) k/uL Neutrophils % % Lymphocytes % % Monocytes % % Eosinophils % % Basophils % % Neutrophils # (1.3-7.7) k/uL Lymphocytes # (1.0-4.8) k/uL Monocytes # (0-1.0) k/uL Eosinophils # (0-0.7) k/uL Basophils # (0-0.2) k/uL PT 19.9 H (9.0-12.0) sec INR 2.2 H (<1.2) APTT 23.9 (22.0-30.0) sec Sodium (137-145) mmol/L Potassium (3.5-5.1) mmol/L Chloride (98-107) mmol/L Carbon Dioxide (22-30) mmol/L Anion Gap mmol/L BUN (9-20) mg/dL Creatinine (0.66-1.25) mg/dL Est GFR (CKD-EPI)AfAm (>60 ml/min/1.73 sqM) Est GFR (CKD-EPI)NonAf (>60 ml/min/1.73 sqM) Glucose (74-99) mg/dL POC Glucose (mg/dL) 128 H (75-99) mg/dL POC Glu Launch Steward ID Fabien Wei Calcium (8.4-10.2) mg/dL Total Bilirubin (0.2-1.3) mg/dL AST (17-59) U/L ALT (21-72) U/L Alkaline Phosphatase (38-126) U/L Total Creatine Kinase (55-170) U/L CK-MB (CK-2) (0.0-2.4) ng/mL CK-MB (CK-2) Rel Index Troponin I (0.000-0.034) ng/mL Total Protein (6.3-8.2) g/dL Albumin (3.5-5.0) g/dL Disposition Clinical Impression: Pre-syncope, Hypertension, Diabetes, Hypoglycemia Disposition: HOME SELF-CARE Condition: Good Instructions: Hypoglycemia in a Person with Diabetes (ED) Is patient prescribed a controlled substance at d/c from ED?: No Referrals: Carlos Riley DO [Primary Care Provider] - 1-2 days Time of Disposition: 21:17
[2018-01-24 19:45] LABS: Basophils % (A) 0 %; Eosinophils # (A) 0.1 k/uL (0-0.7); Eosinophils % (A) 1 %; HCT 45.4 % (39.0-53.0); HGB 14.9 gm/dL (13.0-17.5); Lymphocytes # (A) 1.1 k/uL (1.0-4.8); Lymphocytes % (A) 12 %; MCHC 32.7 g/dL (31.0-37.0); MCV 97.9 fL (80.0-100.0); Mean Platelet Volume 9.4; Monocytes # (A) 0.6 k/uL (0-1.0); Monocytes % (A) 7 %; Neutrophils # (A) 7.7 k/uL (1.3-7.7); Neutrophils % (A) 79 %; Platelet Count 159 k/uL (150-450); RBC 4.64 m/uL (4.30-5.90); RDW 14.7 % (11.5-15.5); WBC 9.8 k/uL (3.8-10.6)
[2018-01-24 19:58] LABS: Creatine Kinase 147 U/L (55-170)
[2018-01-24 19:59] LABS: ALT 39 U/L (21-72); AST 43 U/L (17-59); Albumin 4.3 g/dL (3.5-5.0); Alkaline Phosphatase 110 U/L (38-126); Blood Urea Nitrogen 22 mg/dL (9-20); Calcium 9.4 mg/dL (8.4-10.2); Carbon Dioxide 23 mmol/L (22-30); Glucose 141 mg/dL (74-99); Potassium 4.4 mmol/L (3.5-5.1); Sodium 142 mmol/L (137-145); Total Bilirubin 0.9 mg/dL (0.2-1.3); Total Protein 7.2 g/dL (6.3-8.2)
[2018-01-24 20:04] LABS: Glucose,Whole Blood 128 mg/dL (75-99)
[2018-01-24 20:10] LABS: Troponin I <0.012 ng/mL (0.000-0.034)
[2018-01-24 20:15] LABS: Creatine Kinase MB 2.7 ng/mL (0.0-2.4)
[2018-01-24 20:16] LABS: Anion Gap 17 mmol/L; Chloride 102 mmol/L (98-107)
[2018-01-24 20:49] LABS: INR 2.2 (<1.2); Partial Thromboplastin Time 23.9 sec (22.0-30.0); Prothrombin Time 19.9 sec (9.0-12.0)
[2018-01-24 21:20] VITALS: RESP 16; TEMP 98.5
[2018-01-24 21:38] VITALS: BP 174/103; PULSE 112
[2018-01-24 21:51] LABS: Glucose,Whole Blood 134 mg/dL (75-99)
== END 2018-01-24 21:45 | disposition home or self-care (01) ==
LOC: EC 18:26
DX: E11.649 Type 2 diabetes mellitus with hypoglycemia without coma (principal); R55 Syncope and collapse; I10 Essential (primary) hypertension; I48.91 Unspecified atrial fibrillation; I25.10 Atherosclerotic heart disease of native coronary artery without angina pectoris; E78.5 Hyperlipidemia, unspecified; I25.2 Old myocardial infarction; M19.90 Unspecified osteoarthritis, unspecified site; N42.9 Disorder of prostate, unspecified; E07.9 Disorder of thyroid, unspecified; Z85.00 Personal history of malignant neoplasm of unspecified digestive organ; Z79.4 Long term (current) use of insulin; Z79.01 Long term (current) use of anticoagulants; Z79.82 Long term (current) use of aspirin; Z79.899 Other long term (current) drug therapy; Z95.5 Presence of coronary angioplasty implant and graft
CPT/HCPCS: 36415; 80053; 82550; 82553; 84484; 85025; 85610; 85730; 93005; 96360; 99285

== ENCOUNTER 2018-01-28 06:07 | Inpatient (IN) | payer MEDICARE ==
[2018-01-28] MEDS ORDERED: ONDANSETRON 4 MG/2 ML VIAL IVP STA ×2 (06:35→08:30)
[2018-01-28] MEDS ORDERED: PANTOPRAZOLE 40 MG/10 ML VIAL IVP STA (06:35)
[2018-01-28] MEDS ORDERED: MORPHINE SULFATE 4 MG/ML SYRINGE IV STA (06:35)
[2018-01-28] MEDS ORDERED: SODIUM CHLORIDE 0.9% 1,000 ML IV STA ×2 (06:35)
[2018-01-28 07:30] LABS: Albumin 3.9 g/dL (3.5-5.0); Potassium 3.7 mmol/L (3.5-5.1); Total Bilirubin 1.1 mg/dL (0.2-1.3); Total Protein 6.9 g/dL (6.3-8.2)
[2018-01-28 07:31] LABS: HCT 46.2 % (39.0-53.0); HGB 15.9 gm/dL (13.0-17.5); MCH 32.4 pg (25.0-35.0); MCHC 34.5 g/dL (31.0-37.0); MCV 94.1 fL (80.0-100.0); Mean Platelet Volume 9.8; Platelet Count 203 k/uL (150-450); RBC 4.91 m/uL (4.30-5.90); RDW 14.4 % (11.5-15.5); WBC 5.3 k/uL (3.8-10.6)
--- NOTE | 2018-01-28 08:23 | XR ---
EXAMINATION TYPE: XR KUB DATE OF EXAM: 01/28/2018 CLINICAL DATA: 83-year-old male with abdominal pain and vomiting, PHH. COMPARISON: Correlation CT 08/05/2017 FINDINGS: Lung bases are clear. No evidence for free intraperitoneal air. Surgical clips in the upper abdomen. Staple line also seen from prior bowel anastomosis. Multiple air-fluid levels with a severely dilated small bowel loops measuring up to 5.7 cm[address] Possibili ty of colonic gas. The stomach is also air and fluid distended. Phlebolith in the left hemipelvis. IMPRESSION: Findings compatible with high-grade small bowel obstruction. Small bowel loops measuring up to 5.7 cm . No free air.
[2018-01-28 08:26] LABS: Lymphocytes # (M) 0.64 k/uL (1.0-4.8); Nucleated Red Blood Cells 0 /100 WBC (0-0)
[2018-01-28 08:28] LABS: Band Neutrophils % 19 %; Basophils # (M) 0.05 k/uL (0-0.2); Eosinophils # (M) 0.05 k/uL (0-0.7); Metamyelocytes # (M) 0.11 k/uL (0); Metamyelocytes % 2 %; Monocytes # (M) 0.58 k/uL (0-1.0); Myelocytes # (M) 0.05 k/uL (0); Myelocytes % 1 %; Neutrophils % (M) 56 %; Total Cells Counted 200
[2018-01-28 08:29] LABS: Poikilocytosis (M) Present; Toxic Granulation Present
[2018-01-28 09:03] LABS: Glucose,Whole Blood 136 mg/dL (75-99)
--- NOTE | 2018-01-28 09:11 | ED ---
Abdominal Pain HPI - General Chief Complaint: Abdominal Pain Stated Complaint: vomiting Time Seen by Provider: 01/28/18 06:34 Source: patient Mode of arrival: ambulatory Limitations: no limitations - History of Present Illness Initial Comments: 82 years old male comes in with abdominal pain, he said he had no bowel movement for the last 2 days he vomited several times all night nausea and vomiting started yesterday afternoon he had a history of tumor in his stomach was removed in here. He does have a mild abdominal pain no headaches no neck stiffness no chest pain or shortness of breath no frequency urgency dysuria no symptoms of TIA or CVA - Related Data Home Medications Medication Instructions Recorded Confirmed Atorvastatin [Lipitor] 40 mg PO HS 07/19/16 01/28/18 Insulin Aspart [NovoLOG See Protocol SQ ACHS 07/19/16 01/28/18 (formulary)] Insulin Detemir [Levemir] 20 unit SQ QAM 07/19/16 01/28/18 Lisinopril [Zestril] 20 mg PO DAILY 07/19/16 01/28/18 Warfarin [Coumadin] 3.75 mg PO TU 07/19/16 01/28/18 Warfarin [Coumadin] 7.5 mg PO SUMOWETHFRSA 07/19/16 01/28/18 metFORMIN HCL 500 mg PO BID 03/14/17 01/28/18 Ascorbic Acid [Vitamin C] 500 mg PO DAILY 01/24/18 01/28/18 Aspirin EC [Ecotrin] 325 mg PO DAILY 01/24/18 01/28/18 Magnesium Oxide [Mag-Ox] 250 mg PO DAILY 01/24/18 01/28/18 Multivitamins, Thera [Multivitamin 1 tab PO DAILY 01/24/18 01/28/18 (formulary)] Previous Rx's Medication Instructions Recorded Metoprolol Tartrate [Lopressor] 25 mg PO BID #60 tab 08/01/16 Levothyroxine Sodium [Synthroid] 75 mcg PO DAILY@0630 #30 tab 03/15/17 Allergies Allergy/AdvReac Type Severity Reaction Status Date / Time No Known Allergies Allergy Verified 01/28/18 07:54 Review of Systems ROS Statement: Those systems with pertinent positive or pertinent negative responses have been documented in the HPI. ROS Other: All systems not noted in ROS Statement are negative. Past Medical History Past Medical History: Atrial Fibrillation, Coronary Artery Disease (CAD), Cancer , CVA/TIA, Diabetes Mellitus, GI Bleed, Hyperlipidemia, Hypertension, Myocardial Infarction (MA), Osteoarthritis (OA), Prostate Disorder, Thyroid Disorder Additional Past Medical History / Comment(s): SOB w/activity, hx gastric cancer , had stroke 2015-some minimal left sided weakness Last Myocardial Infarction Date:: unknown History of Any Multi-Drug Resistant Organisms: None Reported Past Surgical History: Heart Catheterization With Stent, Hernia Repair, Orthopedic Surgery Additional Past Surgical History / Comment(s): 02/23/13 cardiac cath with stent , bilateral inguinal hernia repair, L middle finger colonoscopy, EGD, exp laparotomy splenectomy, partial gastrectomy Past Anesthesia/Blood Transfusion Reactions: No Reported Reaction Additional Past Anesthesia/Blood Transfusion Reaction / Comment(s): blood transfusion 07/20/16- no reaction Date of Last Stent Placement:: 02/23/13 Past Psychological History: No Psychological Hx Reported Smoking Status: Former smoker Past Alcohol Use History: Daily Past Drug Use History: None Reported - Past Family History Father Family Medical History: Cancer Additional Family Medical History / Comment(s): Father of leukemia at the age of 68yrs. pts mom had ra and lived to age 93 Mother Family Medical History: No Reported History Additional Family Medical History / Comment(s): Mother was healthy and at the age of 94 yrs. General Exam - General Exam Comments Initial Comments: General: The patient is awake and alert, in no distress, and does not appear acutely ill. Skin: Skin is warm and dry and no rashes or lesions are noted. Eye: Pupils are equal, round and reactive to light, extra-ocular movements are intact; there is normal conjunctiva bilaterally. Ears, nose, mouth and throat: There are moist mucous membranes and no oral lesions. Neck: The neck is supple, there is no tenderness or JVD. Cardiovascular: There is a regular rate and rhythm. No murmur, rub or gallop is appreciated. Respiratory: To auscultation bilateral, no wheezing no rhonchi no distress respiratory sauceda noticed Gastrointestinal: Diminished distended, diminished bowel sounds no guarding no rebounds Back: There is no tenderness to palpation in the midline. There is no obvious deformity. Musculoskeletal: Normal ROM, no tenderness, There is no pedal edema. There is no calf tenderness or swelling. No cords were appreciated. Neurological: CN II-XII intact, Cranial nerves III through XII are intact. There are no obvious motor or sensory deficits. Coordination appears grossly intact. Speech is normal. Psychiatric: Cooperative, appropriate mood & affect, normal judgment. Limitations: no limitations Course Vital Signs 01/28/18 06:11 Temperature 98 F Pulse Rate 89 Respiratory 16 Rate Blood Pressure 106/55 O2 Sat by Pulse 98 Oximetry Imaging and labs are reviewed, CBC, comprehensive metabolic panel, troponin are unremarkable lactate is also negative KUB is quite clear about the bowel obstruction bowel loops is greater than 5.7 cm no free air noticed under the diaphragm, patient be admitted under Dr. Fleming's service Medical Decision Making - Lab Data Result diagrams: 01/28/18 06:50 01/28/18 06:50 Lab Results 01/28/18 01/28/18 01/28/18 Range/Units 06:50 06:50 06:50 WBC 5.3 (3.8-10.6) k/uL RBC 4.91 (4.30-5.90) m/uL Hgb 15.9 (13.0-17.5) gm/dL Hct 46.2 (39.0-53.0) % MCV 94.1 (80.0-100.0) fL MCH 32.4 (25.0-35.0) pg MCHC 34.5 (31.0-37.0) g/dL RDW 14.4 (11.5-15.5) % Plt Count 203 (150-450) k/uL Neutrophils % (Manual) 56 % Band Neutrophils % 19 % Lymphocytes % (Manual) 12 % Monocytes % (Manual) 11 % Eosinophils % (Manual) 1 % Basophils % (Manual) 1 % Metamyelocytes % 2 % Myelocytes % 1 % Neutrophils # (Manual) 3.90 (1.3-7.7) k/uL Lymphocytes # (Manual) 0.64 L (1.0-4.8) k/uL Monocytes # (Manual) 0.58 (0-1.0) k/uL Eosinophils # (Manual) 0.05 (0-0.7) k/uL Basophils # (Manual) 0.05 (0-0.2) k/uL Metamyelocytes # (Man) 0.11 H (0) k/uL Myelocytes # (Manual) 0.05 H (0) k/uL Nucleated RBCs 0 (0-0) /100 WBC Manual Slide Review Performed Toxic Granulation Present Poikilocytosis (manual Present Sodium 139 (137-145) mmol/L Potassium 3.7 (3.5-5.1) mmol/L Chloride 93 L (98-107) mmol/L Carbon Dioxide 28 (22-30) mmol/L Anion Gap 18 mmol/L BUN 34 H (9-20) mg/dL Creatinine 0.94 (0.66-1.25) mg/dL Est GFR (CKD-EPI)AfAm 87 (>60 ml/min/1.73 sqM) Est GFR (CKD-EPI)NonAf 76 (>60 ml/min/1.73 sqM) Glucose 118 H (74-99) mg/dL POC Glucose (mg/dL) (75-99) mg/dL POC Glu Assistant Facility Manager ID Plasma Lactic Acid Marvin 1.8 (0.7-2.0) mmol/L Calcium 10.0 (8.4-10.2) mg/dL Total Bilirubin 1.1 (0.2-1.3) mg/dL AST 24 (17-59) U/L ALT 27 (21-72) U/L Alkaline Phosphatase 80 (38-126) U/L Troponin I (0.000-0.034) ng/mL Total Protein 6.9 (6.3-8.2) g/dL Albumin 3.9 (3.5-5.0) g/dL Amylase 60 (30-110) U/L Lipase 40 (23-300) U/L 01/28/18 01/28/18 Range/Units 06:50 09:01 WBC (3.8-10.6) k/uL RBC (4.30-5.90) m/uL Hgb (13.0-17.5) gm/dL Hct (39.0-53.0) % MCV (80.0-100.0) fL MCH (25.0-35.0) pg MCHC (31.0-37.0) g/dL RDW (11.5-15.5) % Plt Count (150-450) k/uL Neutrophils % (Manual) % Band Neutrophils % % Lymphocytes % (Manual) % Monocytes % (Manual) % Eosinophils % (Manual) % Basophils % (Manual) % Metamyelocytes % % Myelocytes % % Neutrophils # (Manual) (1.3-7.7) k/uL Lymphocytes # (Manual) (1.0-4.8) k/uL Monocytes # (Manual) (0-1.0) k/uL Eosinophils # (Manual) (0-0.7) k/uL Basophils # (Manual) (0-0.2) k/uL Metamyelocytes # (Man) (0) k/uL Myelocytes # (Manual) (0) k/uL Nucleated RBCs (0-0) /100 WBC Manual Slide Review Toxic Granulation Poikilocytosis (manual Sodium (137-145) mmol/L Potassium (3.5-5.1) mmol/L Chloride (98-107) mmol/L Carbon Dioxide (22-30) mmol/L Anion Gap mmol/L BUN (9-20) mg/dL Creatinine (0.66-1.25) mg/dL Est GFR (CKD-EPI)AfAm (>60 ml/min/1.73 sqM) Est GFR (CKD-EPI)NonAf (>60 ml/min/1.73 sqM) Glucose (74-99) mg/dL POC Glucose (mg/dL) 136 H (75-99) mg/dL POC Glu Assistant Facility Manager Julia Villanueva Plasma Lactic Acid Marvin (0.7-2.0) mmol/L Calcium (8.4-10.2) mg/dL Total Bilirubin (0.2-1.3) mg/dL AST (17-59) U/L ALT (21-72) U/L Alkaline Phosphatase (38-126) U/L Troponin I <0.012 (0.000-0.034) ng/mL Total Protein (6.3-8.2) g/dL Albumin (3.5-5.0) g/dL Amylase (30-110) U/L Lipase (23-300) U/L Disposition Clinical Impression: Bowel obstruction Disposition: ADMITTED IP TO THIS [facility] Condition: Fair Referrals: Carlos Riley DO [Primary Care Provider] - 1-2 days
[2018-01-28] MEDS ORDERED: RX INFO: IV CONTRAST WAS GIVEN 1 EACH MISC MISCELLANE PRN (09:16)
[2018-01-28] MEDS ORDERED: NALOXONE 0.4 MG/ML 1 ML VIAL IV PRN (09:17)
[2018-01-28] MEDS ORDERED: ONDANSETRON 4 MG/2 ML VIAL IVP PRN (09:17)
[2018-01-28 10:02] LABS: Prothrombin Time 83.6 sec (9.0-12.0)
[2018-01-28] MEDS ORDERED: BENZOCAINE/MENTHOL LOZENG 1 EACH LOZENGE MUCOUS MEM PRN (10:13)
--- NOTE | 2018-01-28 10:13 | P.GSHP ---
History of Present Illness H&P Date: 01/28/18 Chief Complaint: Small bowel obstruction This 82-year-old male who presented to the emergency room with complaints of abdominal pain nausea. Patient states that he has had been vomiting for 2-3 days prior to his admission. His x-ray in the emergency room shows significant small bowel obstruction. Patient's complaints of nausea. Past Medical History Past Medical History: Atrial Fibrillation, Coronary Artery Disease (CAD), Cancer , CVA/TIA, Diabetes Mellitus, GI Bleed, Hyperlipidemia, Hypertension, Myocardial Infarction ([place]), Osteoarthritis (OA), Prostate Disorder, Thyroid Disorder Additional Past Medical History / Comment(s): SOB w/activity, hx gastric cancer , had stroke 2015-some minimal left sided weakness Last Myocardial Infarction Date:: unknown History of Any Multi-Drug Resistant Organisms: None Reported Past Surgical History: Heart Catheterization With Stent, Hernia Repair, Orthopedic Surgery Additional Past Surgical History / Comment(s): 02/23/13 cardiac cath with stent , bilateral inguinal hernia repair, L middle finger colonoscopy, EGD, exp laparotomy splenectomy, partial gastrectomy Past Anesthesia/Blood Transfusion Reactions: No Reported Reaction Additional Past Anesthesia/Blood Transfusion Reaction / Comment(s): blood transfusion 07/20/16- no reaction Date of Last Stent Placement:: 02/23/13 Past Psychological History: No Psychological Hx Reported Smoking Status: Former smoker Past Alcohol Use History: Daily Past Drug Use History: None Reported - Past Family History Father Family Medical History: Cancer Additional Family Medical History / Comment(s): Father of leukemia at the age of 68yrs. pts mom had ra and lived to age 93 Mother Family Medical History: No Reported History Additional Family Medical History / Comment(s): Mother was healthy and at the age of 94 yrs. Medications and Allergies Home Medications Medication Instructions Recorded Confirmed Type Atorvastatin [Lipitor] 40 mg PO HS 07/19/16 01/28/18 History Insulin Aspart [NovoLOG See Protocol SQ ACHS 07/19/16 01/28/18 History (formulary)] Insulin Detemir [Levemir] 20 unit SQ QAM 07/19/16 01/28/18 History Lisinopril [Zestril] 20 mg PO DAILY 07/19/16 01/28/18 History Warfarin [Coumadin] 3.75 mg PO TU 07/19/16 01/28/18 History Warfarin [Coumadin] 7.5 mg PO SUMOWETHFRSA 07/19/16 01/28/18 History Metoprolol Tartrate [Lopressor] 25 mg PO BID #60 tab 08/01/16 01/28/18 Rx metFORMIN HCL 500 mg PO BID 03/14/17 01/28/18 History Levothyroxine Sodium [Synthroid] 75 mcg PO DAILY@0630 #30 tab 03/15/17 01/28/18 Rx Ascorbic Acid [Vitamin C] 500 mg PO DAILY 01/24/18 01/28/18 History Aspirin EC [Ecotrin] 325 mg PO DAILY 01/24/18 01/28/18 History Magnesium Oxide [Mag-Ox] 250 mg PO DAILY 01/24/18 01/28/18 History Multivitamins, Thera [Multivitamin 1 tab PO DAILY 01/24/18 01/28/18 History (formulary)] Allergies Allergy/AdvReac Type Severity Reaction Status Date / Time No Known Allergies Allergy Verified 01/28/18 07:54 Surgical - Exam Vital Signs Temp Pulse Resp BP Pulse Ox 98 F 89 16 106/55 98 01/28/18 06:11 01/28/18 06:11 01/28/18 06:11 01/28/18 06:11 01/28/18 06:11 - General well developed, no distress - Eyes PERRL - ENT normal pinna - Neck no masses - Respiratory normal expansion - Cardiovascular Rhythm: regular - Abdomen Abdomen soft. There is significant abdominal distention. There is no rebound or guarding. Abdomen: soft Results - Labs 01/28/18 06:50 01/28/18 06:50 Abnormal Lab Results - Last 24 Hours (Table) 01/28/18 01/28/18 01/28/18 Range/Units 06:50 06:50 06:50 Lymphocytes # (Manual) 0.64 L (1.0-4.8) k/uL Metamyelocytes # (Man) 0.11 H (0) k/uL Myelocytes # (Manual) 0.05 H (0) k/uL PT 83.6 H (9.0-12.0) sec INR 9.0 H* (<1.2) Chloride 93 L (98-107) mmol/L BUN 34 H (9-20) mg/dL Glucose 118 H (74-99) mg/dL POC Glucose (mg/dL) (75-99) mg/dL 01/28/18 Range/Units 09:01 Lymphocytes # (Manual) (1.0-4.8) k/uL Metamyelocytes # (Man) (0) k/uL Myelocytes # (Manual) (0) k/uL PT (9.0-12.0) sec INR (<1.2) Chloride (98-107) mmol/L BUN (9-20) mg/dL Glucose (74-99) mg/dL POC Glucose (mg/dL) 136 H (75-99) mg/dL Diabetes panel 01/28/18 Range/Units 06:50 Sodium 139 (137-145) mmol/L Potassium 3.7 (3.5-5.1) mmol/L Chloride 93 L (98-107) mmol/L Carbon Dioxide 28 (22-30) mmol/L BUN 34 H (9-20) mg/dL Creatinine 0.94 (0.66-1.25) mg/dL Glucose 118 H (74-99) mg/dL Calcium 10.0 (8.4-10.2) mg/dL AST 24 (17-59) U/L ALT 27 (21-72) U/L Alkaline Phosphatase 80 (38-126) U/L Total Protein 6.9 (6.3-8.2) g/dL Albumin 3.9 (3.5-5.0) g/dL Calcium panel 01/28/18 Range/Units 06:50 Calcium 10.0 (8.4-10.2) mg/dL Albumin 3.9 (3.5-5.0) g/dL Pituitary panel 01/28/18 Range/Units 06:50 Sodium 139 (137-145) mmol/L Potassium 3.7 (3.5-5.1) mmol/L Chloride 93 L (98-107) mmol/L Carbon Dioxide 28 (22-30) mmol/L BUN 34 H (9-20) mg/dL Creatinine 0.94 (0.66-1.25) mg/dL Glucose 118 H (74-99) mg/dL Calcium 10.0 (8.4-10.2) mg/dL Adrenal panel 01/28/18 Range/Units 06:50 Sodium 139 (137-145) mmol/L Potassium 3.7 (3.5-5.1) mmol/L Chloride 93 L (98-107) mmol/L Carbon Dioxide 28 (22-30) mmol/L BUN 34 H (9-20) mg/dL Creatinine 0.94 (0.66-1.25) mg/dL Glucose 118 H (74-99) mg/dL Calcium 10.0 (8.4-10.2) mg/dL Total Bilirubin 1.1 (0.2-1.3) mg/dL AST 24 (17-59) U/L ALT 27 (21-72) U/L Alkaline Phosphatase 80 (38-126) U/L Total Protein 6.9 (6.3-8.2) g/dL Albumin 3.9 (3.5-5.0) g/dL Assessment and Plan Plan: Small bowel obstruction. Patient's INR is 9. He will need to have his coagulopathy reversed prior to surgery. When he is medically stable he will undergo exploratory laparotomy with lysis of adhesions.
[2018-01-28] MEDS ORDERED: PHYTONADIONE 10 MG in SODIUM CHLORIDE 0.9% 50 ML IVPB STA (10:15)
[2018-01-28] MEDS: MORPHINE SULFATE 4 MG/ML SYRINGE IV PRN ×3 (10:20→18:14)
[2018-01-28] MEDS: D5-0.45% NACL WITH KCL 20MEQ/L 1,000 ML IV SCH ×4 (11:15→19:49)
[2018-01-28 12:25] LABS: Glucose,Whole Blood 151 mg/dL (75-99)
[2018-01-28] MEDS: DILTIAZEM 50 MG in SODIUM CHLORIDE 0.9% 40 ML IV SCH ×3 (13:50→22:52)
[2018-01-28] MEDS ORDERED: LACTATED RINGERS 1,000 ML IV ONE (17:00)
[2018-01-28 18:02] LABS: Glucose,Whole Blood 286 mg/dL (75-99)
[2018-01-28 19:33] LABS: INR 1.4 (<1.2); Prothrombin Time 12.8 sec (9.0-12.0)
[2018-01-28 21:02] LABS: Glucose,Whole Blood 316 mg/dL (75-99)
[2018-01-28] MEDS: INSULIN ASPART 100 UNIT/ML 1 ML 10 ML VIAL SQ SCH (21:20)
[2018-01-28] MEDS: METOPROLOL TARTRATE 25 MG TAB PO SCH (22:19)
--- NOTE | 2018-01-28 22:30 | XR ---
EXAMINATION TYPE: XR chest 1V portable DATE OF EXAM: 01/28/2018 COMPARISON: 03/14/2017 HISTORY: NG tube placement TECHNIQUE: Single frontal view of the chest is obtained. FINDINGS: There is some pulmonary vascular congestion. Thoracic aorta is atheromatous. There is naso gastric tube with the tip well into the stomach. There are chest leads. IMPRESSION: There is evidence of mild heart failure. There are probably small pleural effusions. Timothy ogastric tube appears in good position. Pulmonary congestion is increased compared to last exam.
[2018-01-29] MEDS: LACTATED RINGERS 1,000 ML IV SCH ×3 (00:44→01:09)
[2018-01-29 00:56] LABS: Appearance,Urine Clear (Clear); Bilirubin,Urine Negative (Negative); Blood,Urine Small (Negative); Color,Urine Yellow; Glucose,Urine (UA) 4+ (Negative); Hyaline Casts,Urine 5 /lpf (0-2); Ketones,Urine 1+ (Negative); Leukocyte Esterase,Urine Negative (Negative); Mucus,Urine Moderate /hpf; Nitrite,Urine Negative (Negative); PH, Urine 5.5 (5.0-8.0); Protein,Urine 1+ (Negative); RBC,Urine 2 /hpf (0-5); Specific Gravity,Urine 1.024 (1.001-1.035); Urobilinogen,Urine <2.0 mg/dL (<2.0); WBC,Urine 3 /hpf (0-5)
[2018-01-29 03:41] LABS: Hemoglobin A1C 6.6 % (4.0-6.0)
[2018-01-29] MEDS: DILTIAZEM 50 MG in SODIUM CHLORIDE 0.9% 40 ML IV SCH ×5 (05:10→22:07)
[2018-01-29] MEDS: D5-0.45% NACL WITH KCL 20MEQ/L 1,000 ML IV SCH ×2 (05:42→12:12)
[2018-01-29 06:04] LABS: Glucose,Whole Blood 302 mg/dL (75-99)
[2018-01-29] MEDS: INSULIN ASPART 100 UNIT/ML 1 ML 10 ML VIAL SQ SCH ×4 (06:09→22:06)
[2018-01-29 06:14] LABS: INR 1.2 (<1.2); Prothrombin Time 11.1 sec (9.0-12.0)
[2018-01-29 06:24] LABS: ALT 26 U/L (21-72); AST 17 U/L (17-59); Albumin 3.2 g/dL (3.5-5.0); Alkaline Phosphatase 74 U/L (38-126); Anion Gap 16 mmol/L; Blood Urea Nitrogen 31 mg/dL (9-20); Calcium 8.8 mg/dL (8.4-10.2); Carbon Dioxide 26 mmol/L (22-30); Chloride 96 mmol/L (98-107); Glucose 339 mg/dL (74-99); Potassium 4.9 mmol/L (3.5-5.1); Sodium 138 mmol/L (137-145); Total Protein 5.8 g/dL (6.3-8.2)
[2018-01-29 06:45] LABS: Basophils % (A) 0 %; Eosinophils % (A) 0 %; HCT 42.4 % (39.0-53.0); HGB 13.9 gm/dL (13.0-17.5); Lymphocytes # (A) 0.6 k/uL (1.0-4.8); Lymphocytes % (A) 9 %; MCHC 32.7 g/dL (31.0-37.0); MCV 97.8 fL (80.0-100.0); Mean Platelet Volume 8.7; Monocytes # (A) 0.4 k/uL (0-1.0); Monocytes % (A) 6 %; Neutrophils # (A) 5.6 k/uL (1.3-7.7); Neutrophils % (A) 83 %; Platelet Count 198 k/uL (150-450); RBC 4.33 m/uL (4.30-5.90); RDW 14.3 % (11.5-15.5); WBC 6.7 k/uL (3.8-10.6)
[2018-01-29] MEDS: PANTOPRAZOLE 40 MG/10 ML VIAL IVP SCH (09:09)
[2018-01-29] MEDS: METOPROLOL TARTRATE 25 MG TAB PO SCH (10:52)
--- NOTE | 2018-01-29 11:17 | ECHOF ---
Referral Reason:Evaluate LV function MEASUREMENTS -------- HEIGHT: 177.8 cm WEIGHT: 68.0 kg BP: 144/83 IVSd: 1.7 cm (0.6 - 1.1) LVIDd: 2.4 cm (3.9 - 5.3) LVPWd: 2.1 cm (0.6 - 1.1) IVSs: 1.9 cm LVIDs: 2.1 cm LVPWs: 1.9 cm LAESV Index (A-L): 52.57 ml/m Ao Diam: 3.9 cm (2.0 - 3.7) AV Cusp: 1.7 cm (1.5 - 2.6) LA Diam: 5.0 cm (2.7 - 3.8) AR PHT: 149 ms RAP: 5.00 mmHg RVSP: 43.33 mmHg FINDINGS -------- Atrial fibrillation. This was a technically good study. The cavity size is decreased. There is severe concentric left ventricular hypertrophy. Overall le ft ventricular systolic function is normal with, an EF between 65 - 70 %. The right ventricle is normal in size and function. LA is severely dilated >40 ml/m2 RA appears enlarged. Aortic valve is trileaflet and is mildly thickened. Trace amount of aortic regurgitation. The mitral valve leaflets are mildly thickened. Moderate mitral regurgitation is present. Moderate tricuspid regurgitation present. There is mild pulmonary hypertension. The right ventric ular systolic pressure, as measured by Doppler, is 43.33mmHg. Pulmonic valve appears structurally normal. The aortic root size is normal. Normal inferior vena cava with normal inspiratory collapse consistent with estimated right atrial pre ssure of 5 mmHg. The pericardium is normal. CONCLUSIONS -------- 1. Atrial fibrillation. 2. This was a technically good study. 3. The cavity size is decreased. 4. There is severe concentric left ventricular hypertrophy. 5. Overall left ventricular systolic function is normal with, an EF between 65 - 70 %. 6. The right ventricle is normal in size and function. 7. LA is severely dilated >40 ml/m2 8. RA appears enlarged. 9. Aortic valve is trileaflet and is mildly thickened. 10. Trace amount of aortic regurgitation. 11. The mitral valve leaflets are mildly thickened. 12. Moderate mitral regurgitation is present. 13. Moderate tricuspid regurgitation present. 14. There is mild pulmonary hypertension. 15. The right ventricular systolic pressure, as measured by Doppler, is 43.33mmHg. 16. Pulmonic valve appears structurally normal. 17. The aortic root size is normal. 18. Normal inferior vena cava with normal inspiratory collapse consistent with estimated right atrial pressure of 5 mmHg. 19. The pericardium is normal. SENIOR C SOFTWARE ENGINEER: Jossy Weber RDCS
[2018-01-29 11:45] LABS: Glucose,Whole Blood 347 mg/dL (75-99)
--- NOTE | 2018-01-29 11:54 | P.CRDCN ---
History of Present Illness Consult date: 01/29/18 Requesting physician: Raleigh Bailey Consult reason: atrial fibrillation Chief complaint: Abdominal pain and nausea History of present illness: This is an 82-year-old gentleman who follows with Dr. Jaquan Mosquera in the office. He has a known history of coronary artery disease with prior stent placement, chronic persistent atrial fibrillation on Coumadin for anticoagulation, hyperlipidemia, diabetes, hypertension, hypothyroidism, he presented to the hospital with symptoms of abdominal discomfort with associated nausea. KUB x-ray performed on admission showed findings compatible with high grade small bowel obstruction. EKG on arrival shows atrial fibrillation with a rapid ventricular response. An echocardiogram with Doppler study was performed which revealed an ejection fraction of 65-70%, moderate mitral regurg, moderate tricuspid regurg. Chest x-ray shows evidence of mild congestive heart failure and probable small pleural effusions. Pulmonary congestion is increased as compared with prior exam. Blood pressure 142/70 with a heart rate of 118, 96% on 3 L of oxygen, temperature this morning 98.5. INR on admission 9.0, 1.4 this morning after receiving fresh frozen plasma and vitamin K. CBC is normal, sodium 138, potassium 4.9, BUN 31, creatinine 0.9. At the time of my examination this morning, patient does complain of mild abdominal discomfort, he does have an NG tube and Campbell catheter in place. He is currently on IV Cardizem drip at 10 mg per hour. Past Medical History Past Medical History: Atrial Fibrillation, Coronary Artery Disease (CAD), Cancer , CVA/TIA, Diabetes Mellitus, GI Bleed, Hyperlipidemia, Hypertension, Myocardial Infarction ([place]), Osteoarthritis (OA), Prostate Disorder, Thyroid Disorder Additional Past Medical History / Comment(s): SOB w/activity, hx gastric cancer , had stroke 2015-some minimal left sided weakness Last Myocardial Infarction Date:: unknown History of Any Multi-Drug Resistant Organisms: None Reported Past Surgical History: Heart Catheterization With Stent, Hernia Repair, Orthopedic Surgery Additional Past Surgical History / Comment(s): 02/23/13 cardiac cath with stent , bilateral inguinal hernia repair, L middle finger colonoscopy, EGD, exp laparotomy splenectomy, partial gastrectomy Past Anesthesia/Blood Transfusion Reactions: No Reported Reaction Additional Past Anesthesia/Blood Transfusion Reaction / Comment(s): blood transfusion 07/20/16- no reaction Date of Last Stent Placement:: 02/23/13 Past Psychological History: No Psychological Hx Reported Smoking Status: Former smoker Past Alcohol Use History: Daily Additional Past Alcohol Use History / Comment(s): Pt states he has not smoked for many, many years but cannot recall date or age of starting to smoke or quitting. He likes 1-2 glasses of red wine a day. Past Drug Use History: None Reported - Past Family History Father Family Medical History: Cancer Additional Family Medical History / Comment(s): Father of leukemia at the age of 68yrs. pts mom had ra and lived to age 93 Mother Family Medical History: No Reported History Additional Family Medical History / Comment(s): Mother was healthy and at the age of 94 yrs. Medications and Allergies Home Medications Medication Instructions Recorded Confirmed Type Atorvastatin [Lipitor] 40 mg PO HS 07/19/16 01/28/18 History Insulin Aspart [NovoLOG See Protocol SQ ACHS 07/19/16 01/28/18 History (formulary)] Insulin Detemir [Levemir] 20 unit SQ QAM 07/19/16 01/28/18 History Lisinopril [Zestril] 20 mg PO DAILY 07/19/16 01/28/18 History Warfarin [Coumadin] 3.75 mg PO TU 07/19/16 01/28/18 History Warfarin [Coumadin] 7.5 mg PO SUMOWETHFRSA 07/19/16 01/28/18 History Metoprolol Tartrate [Lopressor] 25 mg PO BID #60 tab 08/01/16 01/28/18 Rx metFORMIN HCL 500 mg PO BID 03/14/17 01/28/18 History Levothyroxine Sodium [Synthroid] 75 mcg PO DAILY@0630 #30 tab 03/15/17 01/28/18 Rx Ascorbic Acid [Vitamin C] 500 mg PO DAILY 01/24/18 01/28/18 History Aspirin EC [Ecotrin] 325 mg PO DAILY 01/24/18 01/28/18 History Magnesium Oxide [Mag-Ox] 250 mg PO DAILY 01/24/18 01/28/18 History Multivitamins, Thera [Multivitamin 1 tab PO DAILY 01/24/18 01/28/18 History (formulary)] Allergies Allergy/AdvReac Type Severity Reaction Status Date / Time No Known Allergies Allergy Verified 01/28/18 07:54 Physical Exam Vitals: Vital Signs Temp Pulse Pulse Resp BP BP BP 01/29/18 04:00 98.5 F 119 H 18 142/78 01/29/18 00:00 98.8 F 113 H 18 121/71 01/28/18 20:00 99.2 F 130 H 18 136/87 01/28/18 18:20 123 H 18 139/78 01/28/18 17:49 123 H 18 139/78 01/28/18 16:49 98.2 F 125 H 20 157/78 01/28/18 16:44 98.2 F 125 H 20 157/78 01/28/18 16:34 98.7 F 120 H 18 125/70 01/28/18 16:02 97.2 F L 127 H 18 135/72 01/28/18 16:00 125 H 20 125/70 01/28/18 14:51 98.7 F 114 H 18 159/79 01/28/18 14:49 98.3 F 138 H 18 130/97 01/28/18 14:21 98.9 F 136 H 18 155/99 01/28/18 14:11 98.4 F 138 H 20 144/89 01/28/18 13:47 99.1 F 135 H 18 144/83 01/28/18 12:20 120 H 18 144/89 Pulse Ox 01/29/18 04:00 96 01/29/18 00:00 93 L 01/28/18 20:00 93 L 01/28/18 18:20 91 L 01/28/18 17:49 91 L 01/28/18 16:49 93 L 01/28/18 16:44 93 L 01/28/18 16:34 93 L 01/28/18 16:02 94 L 01/28/18 16:00 94 L 01/28/18 14:51 01/28/18 14:49 01/28/18 14:21 01/28/18 14:11 95 01/28/18 13:47 96 01/28/18 12:20 93 L Intake and Output 01/28/18 01/29/18 01/29/18 22:59 06:59 14:59 Intake Total 616.5 1950 Output Total 1950 Balance 616.5 0 Intake: Intake, IV Titration 84.5 1950 Amount D5-0.45% NaCl with KCl 900 20Meq/l 1,000 ml @ 150 mls/hr IV .Q6H40M HERNANDEZ Rx# :[id number] Diltiazem 50 mg In Sodium 84.5 50 Chloride 0.9% 40 ml @ 10 MG/HR 10 mls/hr IV .Q5H HERNANDEZ Rx#:[id number] Lactated Ringers 1,000 ml 1000 @ 999 mls/hr IV .Q1H1M HERNANDEZ Rx#:[id number] Blood Product 532 Ffp 24 Cpd Unit 296 [id number] Ffp 24 Cpda Unit 236 [id number] Output: Gastric Drainage 1450 Urine 500 Other: Voiding Method Toilet Indwelling Catheter Urinal # Voids 1 Weight 69.7 kg PHYSICAL EXAMINATION: HEENT: Head is atraumatic, normocephalic. Pupils equal, round. Neck is supple. There is no elevated jugular venous pressure. HEART EXAMINATION: Heart S1 and S2 irregularly irregular CHEST EXAMINATION: Lungs are clear with mild diminished air entry to the bases .No chest wall tenderness is noted on palpation or with deep breathing. ABDOMEN: Soft, nontender. Bowel sounds are heard. No organomegaly noted. NG tube in place, Campbell catheter in place. EXTREMITIES: 2+ peripheral pulses with no evidence of peripheral edema and no calf tenderness noted. NEUROLOGIC patient is awake, alert and oriented -3. . Results 01/29/18 05:47 01/29/18 05:47 Cardiac Enzymes 01/29/18 Range/Units 05:47 AST 17 (17-59) U/L Coagulation 01/28/18 01/29/18 Range/Units 19:11 05:47 PT 12.8 H 11.1 (9.0-12.0) sec CBC 01/29/18 Range/Units 05:47 WBC 6.7 (3.8-10.6) k/uL RBC 4.33 (4.30-5.90) m/uL Hgb 13.9 (13.0-17.5) gm/dL Hct 42.4 (39.0-53.0) % Plt Count 198 (150-450) k/uL Comprehensive Metabolic Panel 01/29/18 Range/Units 05:47 Sodium 138 (137-145) mmol/L Potassium 4.9 (3.5-5.1) mmol/L Chloride 96 L (98-107) mmol/L Carbon Dioxide 26 (22-30) mmol/L BUN 31 H (9-20) mg/dL Creatinine 0.91 (0.66-1.25) mg/dL Glucose 339 H (74-99) mg/dL Calcium 8.8 (8.4-10.2) mg/dL AST 17 (17-59) U/L ALT 26 (21-72) U/L Alkaline Phosphatase 74 (38-126) U/L Total Protein 5.8 L (6.3-8.2) g/dL Albumin 3.2 L (3.5-5.0) g/dL Current Medications Generic Name Dose Route Start Last Admin Trade Name Freq PRN Reason Stop Dose Admin Acetaminophen 650 mg 01/28/18 09:17 Tylenol Tab PO Q6HR PRN Mild Pain or Fever > 100.5 Benzocaine/Menthol 1 each 01/28/18 10:13 Cepacol Lozenge MUCOUS MEM Q1HR PRN Sore Throat Diltiazem HCl 50 mg/ Sodium 50 mls @ 10 mls/hr 01/28/18 13:30 01/29/18 05:10 Chloride IV 10 mg/hr .Q5H HERNANDEZ 10 mls/hr 10 MG/HR Administration Potassium Chloride/Dextrose/Sod Cl 1,000 mls @ 150 mls/hr 01/28/18 17:00 05:42 D5%-1/2ns-Kcl 20 Meq/L Iv Solution IV 150 mls/hr .Q6H40M HERNANDEZ Administration Insulin Aspart 0 unit 01/28/18 21:14 01/29/18 06:09 Novolog SQ 5 unit ACHS HERNANDEZ Administration Protocol Metoprolol Tartrate 5 mg 01/29/18 12:00 Lopressor IVP Q6HR [facility] Miscellaneous Information 1 each 01/28/18 09:16 Rx Info: Iv Contrast Was Given MISCELLANE 01/30/18 09:16 DAILY PRN Per Protocol Morphine Sulfate 2 mg 01/28/18 09:17 01/28/18 18:14 Morphine Sulfate (Inj) IV 2 mg Q4HR PRN Administration Severe Pain Naloxone HCl 0.2 mg 01/28/18 09:17 Narcan IV Q2M PRN Opioid Reversal Ondansetron HCl 4 mg 01/28/18 09:17 01/28/18 14:29 Zofran IVP 4 mg Q8HR PRN Administration Nausea And Vomiting Pantoprazole Sodium 40 mg 01/29/18 09:00 01/29/18 09:09 Protonix IVP 40 mg DAILY HERNANDEZ Administration Intake and Output 01/28/18 01/29/18 01/29/18 22:59 06:59 14:59 Intake Total 616.5 1950 Output Total 1950 Balance 616.5 0 Intake: Intake, IV Titration 84.5 1950 Amount D5-0.45% NaCl with KCl 900 20Meq/l 1,000 ml @ 150 mls/hr IV .Q6H40M HERNANDEZ Rx# :[id number] Diltiazem 50 mg In Sodium 84.5 50 Chloride 0.9% 40 ml @ 10 MG/HR 10 mls/hr IV .Q5H HERNANDEZ Rx#:[id number] Lactated Ringers 1,000 ml 1000 @ 999 mls/hr IV .Q1H1M HERNANDEZ Rx#:[id number] Blood Product 532 Ffp 24 Cpd Unit 296 [id number] Ffp 24 Cpda Unit 236 [id number] Output: Gastric Drainage 1450 Urine 500 Other: Voiding Method Toilet Indwelling Catheter Urinal # Voids 1 Weight 69.7 kg 01/29/18 05:47 01/29/18 05:47 EKG Interpretations (text) EKG shows atrial fibrillation with a rapid ventricular response. Assessment and Plan Plan: Assessment and plan #1 small bowel obstruction, patient is scheduled for exploratory laparotomy with lysis of adhesions this afternoon #2 atrial fibrillation with rapid ventricular response, chronic persistent. Currently on Cardizem drip at 10 mg per hour. #3 hypertension #4 diabetes #5 hyperlipidemia #6 coronary artery disease with prior LAD stenting in 2013 Plan We will continue IV Cardizem drip at 10 mg per hour. Patient is also on IV Lopressor and we will give him a dose of that this morning prior to his surgery. We will continue to follow. DNP note has been reviewed, I agree with a documented findings and plan of care. Patient was seen and examined.
[2018-01-29] MEDS: METOPROLOL TARTRATE 5 MG/5 ML VIAL IVP SCH ×2 (12:09→18:56)
[2018-01-29 12:37] LABS: Glucose,Whole Blood 367 mg/dL (75-99)
--- NOTE | 2018-01-29 12:41 | P.CONS ---
History of Present Illness - Reason for Consult Consult date: 01/29/18 Medical management - Chief Complaint abdominal pain - History of Present Illness 82-year-old male who presented to the emergency room on 01/28/2018 with a chief complaint of abdominal pain. The patient was evaluated by Dr. Riley in the outpatient setting. He was prescribed Miralax and enemas. He was instructed to come to the emergency room if he did not have a bowel movement or if his abdominal pain got worse. The patient states the pain increased in severity and he started vomiting and he decided to come to the emergency room for further evaluation. KUB x-ray revealed findings compatible with high-grade small bowel obstruction. Small bowel loops measuring up to 5.7 cm. No free air was visualized. The patient was admitted to the hospital under the care of Dr. Bailey. Dr. Riley was consulted for medical management. The patient is currently on a cardizem drip secondary to atrial fibrillation with rapid ventricular response. INR was 9.0 upon admission. Repeat INR is 1.2 after administration of vitamin K and 2 units fresh frozen plasma. Chest x-ray was completed on 01/28/2018 revealing mild heart failure. There are probably small pleural effusions. Pulmonary congestion has increased compared to last exam. Echocardiogram was completed revealing ejection fraction of ejection fraction of 65-70%, LAD is severely dilated, moderate mitral regurgitation, moderate tricuspid regurgitation, and mild pulmonary hypertension. The patient is NPO and is scheduled for exploratory laparotomy with Dr. Bailey today. NG tube is intact to LIS with bilious output. Urinary catheter is also noted with clear yellow output. Patient complains of mild abdominal pain. Reports it is improved since yesterday. Blood sugars have been elevated in the 300s. He is currently on D5.45 at 150cc/hr. He is on Novolog sliding scale. Review of Systems Those systems with pertinent positive or pertinent negative responses have been documented in the HPI Past Medical History Past Medical History: Atrial Fibrillation, Coronary Artery Disease (CAD), Cancer , CVA/TIA, Diabetes Mellitus, GI Bleed, Hyperlipidemia, Hypertension, Myocardial Infarction ([place]), Osteoarthritis (OA), Prostate Disorder, Thyroid Disorder Additional Past Medical History / Comment(s): SOB w/activity, hx gastric cancer , had stroke 2015-some minimal left sided weakness Last Myocardial Infarction Date:: unknown History of Any Multi-Drug Resistant Organisms: None Reported Past Surgical History: Heart Catheterization With Stent, Hernia Repair, Orthopedic Surgery Additional Past Surgical History / Comment(s): 02/23/13 cardiac cath with stent , bilateral inguinal hernia repair, L middle finger colonoscopy, EGD, exp laparotomy splenectomy, partial gastrectomy Past Anesthesia/Blood Transfusion Reactions: No Reported Reaction Additional Past Anesthesia/Blood Transfusion Reaction / Comm: blood transfusion 07/20/16- no reaction Date of Last Stent Placement:: 02/23/13 Past Psychological History: No Psychological Hx Reported Smoking Status: Former smoker Past Alcohol Use History: Daily Additional Past Alcohol Use History / Comment(s): Pt states he has not smoked for many, many years but cannot recall date or age of starting to smoke or quitting. He likes 1-2 glasses of red wine a day. Past Drug Use History: None Reported - Past Family History Father Family Medical History: Cancer Additional Family Medical History / Comment(s): Father of leukemia at the age of 68yrs. pts mom had ra and lived to age 93 Mother Family Medical History: No Reported History Additional Family Medical History / Comment(s): Mother was healthy and at the age of 94 yrs. Medications and Allergies Home Medications Medication Instructions Recorded Confirmed Type Atorvastatin [Lipitor] 40 mg PO HS 07/19/16 01/28/18 History Insulin Aspart [NovoLOG See Protocol SQ ACHS 07/19/16 01/28/18 History (formulary)] Insulin Detemir [Levemir] 20 unit SQ QAM 07/19/16 01/28/18 History Lisinopril [Zestril] 20 mg PO DAILY 07/19/16 01/28/18 History Warfarin [Coumadin] 3.75 mg PO TU 07/19/16 01/28/18 History Warfarin [Coumadin] 7.5 mg PO SUMOWETHFRSA 07/19/16 01/28/18 History Metoprolol Tartrate [Lopressor] 25 mg PO BID #60 tab 08/01/16 01/28/18 Rx metFORMIN HCL 500 mg PO BID 03/14/17 01/28/18 History Levothyroxine Sodium [Synthroid] 75 mcg PO DAILY@0630 #30 tab 03/15/17 01/28/18 Rx Ascorbic Acid [Vitamin C] 500 mg PO DAILY 01/24/18 01/28/18 History Aspirin EC [Ecotrin] 325 mg PO DAILY 01/24/18 01/28/18 History Magnesium Oxide [Mag-Ox] 250 mg PO DAILY 01/24/18 01/28/18 History Multivitamins, Thera [Multivitamin 1 tab PO DAILY 01/24/18 01/28/18 History (formulary)] Allergies Allergy/AdvReac Type Severity Reaction Status Date / Time No Known Allergies Allergy Verified 01/28/18 07:54 Physical Exam Vitals: Vital Signs Temp Pulse Pulse Resp BP BP BP 01/29/18 04:00 98.5 F 119 H 18 142/78 01/29/18 00:00 98.8 F 113 H 18 121/71 01/28/18 20:00 99.2 F 130 H 18 136/87 01/28/18 18:20 123 H 18 139/78 01/28/18 17:49 123 H 18 139/78 01/28/18 16:49 98.2 F 125 H 20 157/78 01/28/18 16:44 98.2 F 125 H 20 157/78 01/28/18 16:34 98.7 F 120 H 18 125/70 01/28/18 16:02 97.2 F L 127 H 18 135/72 01/28/18 16:00 125 H 20 125/70 01/28/18 14:51 98.7 F 114 H 18 159/79 01/28/18 14:49 98.3 F 138 H 18 130/97 01/28/18 14:21 98.9 F 136 H 18 155/99 01/28/18 14:11 98.4 F 138 H 20 144/89 01/28/18 13:47 99.1 F 135 H 18 144/83 01/28/18 12:20 120 H 18 144/89 Pulse Ox 01/29/18 04:00 96 01/29/18 00:00 93 L 01/28/18 20:00 93 L 01/28/18 18:20 91 L 01/28/18 17:49 91 L 01/28/18 16:49 93 L 01/28/18 16:44 93 L 01/28/18 16:34 93 L 01/28/18 16:02 94 L 01/28/18 16:00 94 L 01/28/18 14:51 01/28/18 14:49 01/28/18 14:21 01/28/18 14:11 95 01/28/18 13:47 96 01/28/18 12:20 93 L Intake and Output 01/28/18 01/29/18 01/29/18 22:59 06:59 14:59 Intake Total 616.5 1950 50 Output Total 1950 Balance 616.5 0 50 Intake: Intake, IV Titration 84.5 1950 50 Amount D5-0.45% NaCl with KCl 900 20Meq/l 1,000 ml @ 150 mls/hr IV .Q6H40M HERNANDEZ Rx# :[id number] Diltiazem 50 mg In Sodium 84.5 50 50 Chloride 0.9% 40 ml @ 10 MG/HR 10 mls/hr IV .Q5H HERNANDEZ Rx#:[id number] Lactated Ringers 1,000 ml 1000 @ 999 mls/hr IV .Q1H1M HERNANDEZ Rx#:[id number] Blood Product 532 Ffp 24 Cpd Unit 296 [id number] Ffp 24 Cpda Unit 236 [id number] Output: Gastric Drainage 1450 Urine 500 Other: Voiding Method Toilet Indwelling Catheter Urinal # Voids 1 Weight 69.7 kg GENERAL: This is a 82-year-old male in no apparent distress at the time of examination. Pleasant and cooperative. HEENT: Head is atraumatic, normocephalic. Pupils are equal, round, and reactive to light. Sclerae anicteric. Conjunctivae are clear. Mucus membranes of the mouth are moist. Neck is supple. RESPIRATORY: Clear to ausculation. No wheezes, rales, or rhonchi. No use of accessory muscles. Patient maintaining oxygen saturation greater than 92%. No chest wall tenderness is noted on palpation or with deep breathing. CARDIOVASCULAR: Irregular rhythm. Telemetry reveals atrial fibrillation. S1 and S2 noted. No systolic or diastolic murmur auscultated. No JVD noted. No S3 or S4 noted. GASTROINTESTINAL: Abdomen significantly distended. Remains soft. Pain and tenderness noted upon palpation. NG tube to LIS with bilious output. Indwelling urinary catheter noted was clearly urine. INTEGUMENTARY: No cyanosis. No jaundice. No rashes noted. No cellulitis noted. EXTREMITIES: 2+ peripheral pulses. No evidence of peripheral edema. No calf tenderness noted. NEUROLOGIC: Cranial nerves II-XII intact. PSYCHIATRIC: Awake, alert, and oriented X 3. Appropriate affect. Intact judgement and insight. Results CBC & Chem 7: 01/29/18 05:47 01/29/18 05:47 Labs: Abnormal Lab Results - Last 24 Hours (Table) 01/28/18 01/28/18 01/28/18 Range/Units 06:50 12:24 17:41 Lymphocytes # (1.0-4.8) k/uL PT (9.0-12.0) sec INR (<1.2) Chloride (98-107) mmol/L BUN (9-20) mg/dL Glucose (74-99) mg/dL POC Glucose (mg/dL) 151 H 286 H (75-99) mg/dL Hemoglobin A1c 6.6 H (4.0-6.0) % Total Protein (6.3-8.2) g/dL Albumin (3.5-5.0) g/dL Urine Protein (Negative) Urine Glucose (UA) (Negative) Urine Ketones (Negative) Urine Blood (Negative) Hyaline Casts (0-2) /lpf Urine Mucus (None) /hpf 01/28/18 01/28/18 01/29/18 Range/Units 19:11 21:00 00:39 Lymphocytes # (1.0-4.8) k/uL PT 12.8 H (9.0-12.0) sec INR 1.4 H (<1.2) Chloride (98-107) mmol/L BUN (9-20) mg/dL Glucose (74-99) mg/dL POC Glucose (mg/dL) 316 H (75-99) mg/dL Hemoglobin A1c (4.0-6.0) % Total Protein (6.3-8.2) g/dL Albumin (3.5-5.0) g/dL Urine Protein 1+ H (Negative) Urine Glucose (UA) 4+ H (Negative) Urine Ketones 1+ H (Negative) Urine Blood Small H (Negative) Hyaline Casts 5 H (0-2) /lpf Urine Mucus Moderate H (None) /hpf 01/29/18 01/29/18 01/29/18 Range/Units 05:47 05:47 05:47 Lymphocytes # 0.6 L (1.0-4.8) k/uL PT (9.0-12.0) sec INR 1.2 H (<1.2) Chloride 96 L (98-107) mmol/L BUN 31 H (9-20) mg/dL Glucose 339 H (74-99) mg/dL POC Glucose (mg/dL) (75-99) mg/dL Hemoglobin A1c (4.0-6.0) % Total Protein 5.8 L (6.3-8.2) g/dL Albumin 3.2 L (3.5-5.0) g/dL Urine Protein (Negative) Urine Glucose (UA) (Negative) Urine Ketones (Negative) Urine Blood (Negative) Hyaline Casts (0-2) /lpf Urine Mucus (None) /hpf 01/29/18 01/29/18 Range/Units 06:03 11:41 Lymphocytes # (1.0-4.8) k/uL PT (9.0-12.0) sec INR (<1.2) Chloride (98-107) mmol/L BUN (9-20) mg/dL Glucose (74-99) mg/dL POC Glucose (mg/dL) 302 H 347 H (75-99) mg/dL Hemoglobin A1c (4.0-6.0) % Total Protein (6.3-8.2) g/dL Albumin (3.5-5.0) g/dL Urine Protein (Negative) Urine Glucose (UA) (Negative) Urine Ketones (Negative) Urine Blood (Negative) Hyaline Casts (0-2) /lpf Urine Mucus (None) /hpf Microbiology - Last 24 Hours (Table) 01/29/18 00:39 Urine Culture - Preliminary Urine,Catheterized Assessment and Plan Plan: ASSESSMENT: Small bowel obstruction, present on admission, patient to undergo exploratory laparotomy Chronic atrial fibrillation with rapid ventricular response, on long-term anticoagulation with Coumadin, currently on cardizem drip Supratherapeutic INR, INR 9.0 on admission, resolved with administration of vitamin K and fresh frozen plasma Diabetes mellitus, type II, hemoglobin A1c pending Hyperglycemia, likely related to IV fluids with dextrose Coronary artery disease with previous stenting to LAD, 2012 Hypertension Hyperlipidemia Mild pulmonary hypertension Hypothyroidism History of CVA, 2016 History of gastric cancer History of nicotine dependence, patient is a former cigarette smoker PLAN: Continue management per Dr. Bailey Patient to undergo exp lap today Discontinue D5.45 at 150cc/hr secondary to hyperglycemia 0.9NS at 125cc/hr Continue Novolog sliding scale Continue to hold Levemir today. Resume Levemir at HS tomorrow if patient is able to tolerate PO intake. Continue cardizem drip per cardiology Continue IV lopressor while patient is NPO Resume home meds when patient is able to tolerate PO intake Monitor labs GI prophylaxis: Protonix 40 mg IV Daily DVT prophylaxis: SCDs to bilateral lower extremities Monitor vital signs and address as appropriate Further recommendations pending patient's course Nurse practitioner note has been reviewed by physician. Signing provider agrees with the documented findings, assessment, and plan of care.
[2018-01-29] MEDS ORDERED: DEXTROSE 5%-0.45% NACL 1,000 ML IV ONE (12:45)
[2018-01-29] MEDS ORDERED: NALOXONE 0.4 MG/ML 1 ML VIAL IV PRN ×2 (13:41→16:13)
[2018-01-29] MEDS ORDERED: ROPIVACAINE 250 MG, HYDROMORPHONE (PF) 5 MG in SODIUM CHLORIDE 0.9% 200 ML EPIDURAL PRN (14:00)
[2018-01-29] MEDS ORDERED: GLYCOPYRROLATE 0.2 MG/ML 2 ML VIAL ONE (15:10)
[2018-01-29] MEDS ORDERED: fentaNYL (PF) 50 MCG/ML 2 ML AMP ONE (15:10)
[2018-01-29] MEDS ORDERED: ROCURONIUM BROMIDE 10 MG/ML 10 ML VIAL IV ONE (15:10)
[2018-01-29] MEDS ORDERED: NEOSTIGMINE 1 MG/ML 10 ML VIAL ONE (15:10)
[2018-01-29] MEDS ORDERED: MIDAZOLAM 2 MG/2 ML VIAL ONE (15:10)
[2018-01-29] MEDS ORDERED: PROPOFOL 10 MG/ML 20 ML VIAL IV ONE (15:10)
[2018-01-29] MEDS ORDERED: SUCCINYLCHOLINE CHLORIDE 100 MG/5 ML SYR IV ONE (15:10)
[2018-01-29] MEDS ORDERED: LIDOCAINE 1% INJ 10MG/ML (20 ML MDV) ONE (15:10)
[2018-01-29] MEDS ORDERED: LACTATED RINGERS 1,000 ML IV ONE ×2 (15:43→16:13)
[2018-01-29] MEDS ORDERED: ceFAZolin 1,000 MG VIAL IVPB ONE (16:02)
[2018-01-29] MEDS ORDERED: HYDROmorphone 0.5 MG/0.5 ML SYRINGE IVP PRN (16:13)
--- NOTE | 2018-01-29 16:18 | P.OP ---
Date of Procedure: 01/29/18 Preoperative Diagnosis: Small bowel obstruction Postoperative Diagnosis: Small bowel obstruction secondary to adhesions Procedure(s) Performed: Exploratory laparotomy with lysis of adhesions Anesthesia: CARI Surgeon: Raleigh Bailey Estimated Blood Loss (ml): 5 Pathology: none sent Condition: stable Disposition: PACU Description of Procedure: The patient's placed on the operating table in supine position. He received general anesthesia. His abdomen was prepped and draped usual sterile fashion. The skin was incised through midline incision. Entering the abdomen there was grossly dilated small bowel. The body of PLACED a wound and then the small bowel was explored. In the right lower quadrant there was an adhesive band causing obstruction. This was lysed with sharp dissection. There was a small amount of fibropurulent peel on the lateral abdominal wall in the right lower quadrant. The bowel was run from the terminal ileum proximally and there is no evidence of any bowel perforation. At this point it was decided form and enterotomy to decompress the small bowel. In the mid jejunum and enterotomy was made and then using suction the bowel was decompressed enterotomy is closed with a TA stapler. The abdomen was irrigated there is no bleeding seen. The fascia was closed with looped #1 PDS suture. Skin was closed fransisca. Patient sent to recovery in stable condition.
[2018-01-29 17:08] LABS: Glucose,Whole Blood 345 mg/dL (75-99)
[2018-01-29] MEDS ORDERED: HYDROmorphone 0.5 MG/0.5 ML SYRINGE IVP ONE (17:25)
[2018-01-29] MEDS: SODIUM CHLORIDE 0.9% 1,000 ML IV SCH ×2 (18:49→22:02)
[2018-01-29] MEDS ORDERED: INSULIN DETEMIR 100 UNIT/ML 10 ML VIAL SQ SCH (21:00)
[2018-01-29] MEDS ORDERED: INSULIN ASPART 100 UNIT/ML 1 ML 10 ML VIAL SQ SCH (21:06)
[2018-01-29 21:07] LABS: Glucose,Whole Blood 279 mg/dL (75-99)
[2018-01-29] MEDS: INSULIN DETEMIR 100 UNIT/ML 10 ML VIAL SQ SCH (22:07)
[2018-01-30] MEDS ORDERED: SODIUM CHLORIDE 0.9% 1,000 ML IV ONE ×2 (00:20→10:36)
[2018-01-30] MEDS: HEPARIN SODIUM,PORCINE 5,000 UNIT/ML 1 ML VIAL SQ SCH ×4 (00:23→22:29)
[2018-01-30] MEDS: METOPROLOL TARTRATE 5 MG/5 ML VIAL IVP SCH ×2 (00:23→06:04)
[2018-01-30] MEDS: PIPERACILLIN-TAZOBACTAM 3.375 GM in DEXTROSE/WATER 1 50ML.BAG IVPB SCH ×4 (00:29→23:38)
[2018-01-30] MEDS: DILTIAZEM 50 MG in SODIUM CHLORIDE 0.9% 40 ML IV SCH ×5 (03:25→16:44)
[2018-01-30] MEDS: SODIUM CHLORIDE 0.9% 1,000 ML IV SCH ×2 (05:35→15:42)
--- NOTE | 2018-01-30 05:42 | P.PN ---
Progress Note - Text Date: 01/30/2018 Time: 0505 The patient is status post, exploratory laparotomy, postoperative day number 1 The patient has no complaints of nausea vomiting or headache. The patient does not complain of any lower extremity numbness or weakness. The patient incurred some hypotension this past evening, therefore the epidural was turned off. The patient's pain is still controlled at this time. The patient's vital signs are stable at this time. The epidural will be resumed if the patient is able to tolerate it.
[2018-01-30 06:05] LABS: Glucose,Whole Blood 105 mg/dL (75-99)
[2018-01-30] MEDS: INSULIN ASPART 100 UNIT/ML 1 ML 10 ML VIAL SQ SCH ×4 (06:07→21:52)
[2018-01-30 06:11] LABS: Basophils % (A) 0 %; Eosinophils % (A) 0 %; HCT 37.3 % (39.0-53.0); HGB 12.6 gm/dL (13.0-17.5); Lymphocytes # (A) 0.7 k/uL (1.0-4.8); Lymphocytes % (A) 9 %; MCH 32.7 pg (25.0-35.0); MCHC 33.8 g/dL (31.0-37.0); MCV 96.8 fL (80.0-100.0); Mean Platelet Volume 8.1; Monocytes # (A) 0.4 k/uL (0-1.0); Monocytes % (A) 5 %; Neutrophils # (A) 6.7 k/uL (1.3-7.7); Neutrophils % (A) 84 %; Platelet Count 208 k/uL (150-450); RBC 3.85 m/uL (4.30-5.90); RDW 14.6 % (11.5-15.5); WBC 7.9 k/uL (3.8-10.6)
[2018-01-30] MEDS: DIGOXIN 250 MCG/ML 2 ML AMP IVP SCH ×2 (06:14→14:21)
[2018-01-30 06:30] LABS: Albumin 2.5 g/dL (3.5-5.0); Calcium 8.4 mg/dL (8.4-10.2); Potassium 4.2 mmol/L (3.5-5.1); Total Bilirubin 0.6 mg/dL (0.2-1.3); Total Protein 4.8 g/dL (6.3-8.2)
[2018-01-30] MEDS: PANTOPRAZOLE 40 MG/10 ML VIAL IVP SCH (07:55)
[2018-01-30] MEDS ORDERED: METOPROLOL TARTRATE 25 MG TAB PO STA (08:18)
[2018-01-30] MEDS: METOPROLOL TARTRATE 25 MG TAB PO SCH ×2 (09:14→22:28)
[2018-01-30] MEDS ORDERED: INSULIN DETEMIR 100 UNIT/ML 10 ML VIAL SQ SCH ×2 (11:00→21:00)
--- NOTE | 2018-01-30 11:20 | P.PN ---
Subjective Progress Note Date: 01/30/18 01/29/2018 82-year-old male who presented to the emergency room on 01/28/2018 with a chief complaint of abdominal pain. The patient was evaluated by Dr. Riley in the outpatient setting. He was prescribed Miralax and enemas. He was instructed to come to the emergency room if he did not have a bowel movement or if his abdominal pain got worse. The patient states the pain increased in severity and he started vomiting and he decided to come to the emergency room for further evaluation. KUB x-ray revealed findings compatible with high-grade small bowel obstruction. Small bowel loops measuring up to 5.7 cm. No free air was visualized. The patient was admitted to the hospital under the care of Dr. Bailey. Dr. Riley was consulted for medical management. The patient is currently on a cardizem drip secondary to atrial fibrillation with rapid ventricular response. INR was 9.0 upon admission. Repeat INR is 1.2 after administration of vitamin K and 2 units fresh frozen plasma. Chest x-ray was completed on 01/28/2018 revealing mild heart failure. There are probably small pleural effusions. Pulmonary congestion has increased compared to last exam. Echocardiogram was completed revealing ejection fraction of ejection fraction of 65-70%, LAD is severely dilated, moderate mitral regurgitation, moderate tricuspid regurgitation, and mild pulmonary hypertension. The patient is NPO and is scheduled for exploratory laparotomy with Dr. Bailey today. NG tube is intact to LIS with bilious output. Urinary catheter is also noted with clear yellow output. Patient complains of mild abdominal pain. Reports it is improved since yesterday. Blood sugars have been elevated in the 300s. He is currently on D5.45 at 150cc/hr. He is on Novolog sliding scale. 01/30/2018 Patient seen and examined at the bedside on rounds with Dr. Riley. Patient is awake and alert. Sitting up in bed. He is POD #1 exploratory laparotomy with lysis of adhesions. NG tube remains intact to LIS. Epidural was placed for pain management. Patient become hypotensive overnight with systolic blood pressures in the 70s. Anesthesia was notified and epidural was stopped. Nursing states that anesthesia stated epidural could be resumed at 3cc/hr if needed. Patient is currently receiving Morphine 2mg Q4 hours PRN. Patient states his pain is tolerable at this time. Cardizem drip was also discontinued this morning per cardiology secondary to hypotension. Patient received Digoxin IVP and also PO lopressor. Heart rate remains in low 100s. Blood pressure has improved to 113/ 67. IV fluids are ordered at 125cc/hr. Blood sugars are significantly improved after discontinuation of D5.45. Levemir was restarted last night. Patients blood sugar this morning is 107. Patient is currently NPO. He denies passing flatus. Creatinine this morning is 1.50, up from 0.91 yesterday. He denies chest pain or pressure. Denies shortness of breath. Objective - Vital Signs Vital signs: Vital Signs Temp 97.5 F L 01/30/18 09:23 Pulse 109 H 01/30/18 09:23 Resp 16 01/30/18 04:00 BP 113/67 01/30/18 09:23 Pulse Ox 94 L 01/30/18 04:00 Intake & Output 01/29/18 01/30/18 01/30/18 18:59 06:59 18:59 Intake Total 1700 21.333 Output Total 1460 350 Balance 240 -328.667 Weight 69 kg Intake: IV 750 Intake, IV Titration 950 21.333 Amount D5-0.45% NaCl with KCl 900 20Meq/l 1,000 ml @ 150 mls/hr IV .Q6H40M HERNANDEZ Rx# :[id number] Diltiazem 50 mg In Sodium 50 21.333 Chloride 0.9% 40 ml @ 10 MG/HR 10 mls/hr IV .Q5H HERNANDEZ Rx#:[id number] Oral 0 Output: Gastric Drainage 1250 Urine 200 350 Estimated Blood Loss 10 Other: Voiding Method Indwelling Catheter Indwelling Catheter - Exam GENERAL: This is a 82-year-old male in no apparent distress at the time of examination. Pleasant and cooperative. HEENT: Head is atraumatic, normocephalic. Pupils are equal, round, and reactive to light. Sclerae anicteric. Conjunctivae are clear. Mucus membranes of the mouth are moist. Neck is supple. RESPIRATORY: Clear to ausculation. No wheezes, rales, or rhonchi. No use of accessory muscles. Patient maintaining oxygen saturation greater than 92%. No chest wall tenderness is noted on palpation or with deep breathing. CARDIOVASCULAR: Irregular rhythm. Telemetry reveals atrial fibrillation with rate in the low 100s. S1 and S2 noted. No systolic or diastolic murmur auscultated. No JVD noted. No S3 or S4 noted. GASTROINTESTINAL: Abdomen less distended in comparsion to yesterday. Surgical sites without drainage or signs of infection. Prevara wound vac system in place. Abdomen remains soft. NG tube to LIS with bilious output. Hypoactive bowel sounds noted. Indwelling urinary catheter noted with clear yellow urine. INTEGUMENTARY: No cyanosis. No jaundice. No rashes noted. No cellulitis noted. EXTREMITIES: 2+ peripheral pulses. No evidence of peripheral edema. No calf tenderness noted. NEUROLOGIC: Cranial nerves II-XII intact. PSYCHIATRIC: Awake, alert, and oriented X 3. Appropriate affect. Intact judgement and insight. - Labs CBC & Chem 7: 01/30/18 05:53 01/30/18 05:53 Labs: Abnormal Lab Results - Last 24 Hours (Table) 01/29/18 01/29/18 01/29/18 Range/Units 11:41 12:36 17:01 RBC (4.30-5.90) m/uL Hgb (13.0-17.5) gm/dL Hct (39.0-53.0) % Lymphocytes # (1.0-4.8) k/uL BUN (9-20) mg/dL Creatinine (0.66-1.25) mg/dL Glucose (74-99) mg/dL POC Glucose (mg/dL) 347 H 367 H 345 H (75-99) mg/dL AST (17-59) U/L Total Protein (6.3-8.2) g/dL Albumin (3.5-5.0) g/dL 01/29/18 01/30/18 01/30/18 Range/Units 21:05 05:53 05:53 RBC 3.85 L (4.30-5.90) m/uL Hgb 12.6 L (13.0-17.5) gm/dL Hct 37.3 L (39.0-53.0) % Lymphocytes # 0.7 L (1.0-4.8) k/uL BUN 31 H (9-20) mg/dL Creatinine 1.50 H (0.66-1.25) mg/dL Glucose 107 H (74-99) mg/dL POC Glucose (mg/dL) 279 H (75-99) mg/dL AST 16 L (17-59) U/L Total Protein 4.8 L (6.3-8.2) g/dL Albumin 2.5 L (3.5-5.0) g/dL 01/30/18 Range/Units 06:03 RBC (4.30-5.90) m/uL Hgb (13.0-17.5) gm/dL Hct (39.0-53.0) % Lymphocytes # (1.0-4.8) k/uL BUN (9-20) mg/dL Creatinine (0.66-1.25) mg/dL Glucose (74-99) mg/dL POC Glucose (mg/dL) 105 H (75-99) mg/dL AST (17-59) U/L Total Protein (6.3-8.2) g/dL Albumin (3.5-5.0) g/dL Microbiology - Last 24 Hours (Table) 01/29/18 00:39 Urine Culture - Preliminary Urine,Catheterized Assessment and Plan Plan: ASSESSMENT: Small bowel obstruction, present on admission, s/p exploratory laparotomy with lysis of adhesions, POD #1 Chronic atrial fibrillation with rapid ventricular response, on long-term anticoagulation with Coumadin Supratherapeutic INR, INR 9.0 on admission, resolved with administration of vitamin K and fresh frozen plasma Postoperative hypotension, likely related to epidural infusion and hypovolemia, improving Acute kidney injury, creatinine 1.50, baseline 0.90, likely due to hypotensive episodes overnight and hypovolemia Diabetes mellitus, type II, hemoglobin A1c 6.6% Hyperglycemia, likely related to IV fluids with dextrose, resolved Coronary artery disease with previous stenting to LAD, 2012 Hypertension Hyperlipidemia Mild pulmonary hypertension Hypothyroidism History of CVA, 2016 History of gastric cancer History of nicotine dependence, patient is a former cigarette smoker PLAN: Continue postoperative management per Dr. Bailey Restart Coumadin tomorrow evening per Dr. Riley. Do not administer if epidural catheter is still present. Continue 0.9NS at 125cc/hr Monitor kidney function. Recheck BUN/Creatinine in AM Avoid hypotensive episodes Continue indwelling urinary catheter. May discontinue tomorrow if patients epidural remains off. Continue Novolog sliding scale. Decrease Levemir to 10 units BID. May hold tonights dose if patient remains NPO Resume home meds when patient is able to tolerate PO intake Monitor labs GI prophylaxis: Protonix 40 mg IV Daily DVT prophylaxis: SCDs to bilateral lower extremities PT/OT consult Monitor vital signs and address as appropriate Further recommendations pending patient's course Nurse practitioner note has been reviewed by physician. Signing provider agrees with the documented findings, assessment, and plan of care.
[2018-01-30] MEDS ORDERED: DEXTROSE 50%-WATER 50 ML SYRINGE IVP ONE (11:44)
[2018-01-30 11:50] LABS: Glucose,Whole Blood 44 mg/dL (75-99)
[2018-01-30 12:24] LABS: Glucose,Whole Blood 147 mg/dL (75-99)
--- NOTE | 2018-01-30 12:31 | P.PN ---
Subjective Progress Note Date: 01/30/18 This is an 82-year-old gentleman who follows with Dr. Jaquan Mosquera in the office. He has a known history of coronary artery disease with prior stent placement, chronic persistent atrial fibrillation on Coumadin for anticoagulation, hyperlipidemia, diabetes, hypertension, hypothyroidism, he presented to the hospital with symptoms of abdominal discomfort with associated nausea. KUB x-ray performed on admission showed findings compatible with high grade small bowel obstruction. EKG on arrival shows atrial fibrillation with a rapid ventricular response. An echocardiogram with Doppler study was performed which revealed an ejection fraction of 65-70%, moderate mitral regurg, moderate tricuspid regurg. Chest x-ray shows evidence of mild congestive heart failure and probable small pleural effusions. Pulmonary congestion is increased as compared with prior exam. Blood pressure 142/70 with a heart rate of 118, 96% on 3 L of oxygen, temperature this morning 98.5. INR on admission 9.0, 1.4 this morning after receiving fresh frozen plasma and vitamin K. CBC is normal, sodium 138, potassium 4.9, BUN 31, creatinine 0.9. At the time of my examination this morning, patient does complain of mild abdominal discomfort, he does have an NG tube and Campbell catheter in place. He is currently on IV Cardizem drip at 10 mg per hour. 01/30/2018 Patient was seen and examined this morning, sitting up in the chair at bedside. He went into rapid atrial fibrillation through the night and was given some Lanoxin. Patient was also on a Cardizem drip, which was discontinued because the patient was hypotensive. This morning his blood pressure is in the 1 teens and heart rate remained in the 1 teens therefore we gave an additional dose of 25 mg of metoprolol and increased his dose to twice a day. Overall patient is feeling better today, continues to have NG tube in place. Objective - Vital Signs Vital signs: Vital Signs Temp 97.5 F L 01/30/18 09:23 Pulse 109 H 01/30/18 09:23 Resp 18 01/30/18 08:00 BP 113/67 01/30/18 09:23 Pulse Ox 94 L 01/30/18 04:00 Intake & Output 01/29/18 01/30/18 01/30/18 18:59 06:59 18:59 Intake Total 1700 21.333 Output Total 1460 350 Balance 240 -328.667 Weight 69 kg Intake: IV 750 Intake, IV Titration 950 21.333 Amount D5-0.45% NaCl with KCl 900 20Meq/l 1,000 ml @ 150 mls/hr IV .Q6H40M HERNANDEZ Rx# :[id number] Diltiazem 50 mg In Sodium 50 21.333 Chloride 0.9% 40 ml @ 10 MG/HR 10 mls/hr IV .Q5H HERNANDEZ Rx#:[id number] Oral 0 Output: Gastric Drainage 1250 Urine 200 350 Estimated Blood Loss 10 Other: Voiding Method Indwelling Catheter Indwelling Catheter Indwelling Catheter - Exam PHYSICAL EXAMINATION: HEENT: Head is atraumatic, normocephalic. Pupils equal, round. Neck is supple. There is no elevated jugular venous pressure. HEART EXAMINATION: Heart S1 and S2 irregularly irregular CHEST EXAMINATION: Lungs are clear with mild diminished air entry to the bases .No chest wall tenderness is noted on palpation or with deep breathing. ABDOMEN: Soft, nontender. Bowel sounds are heard. No organomegaly noted. NG tube in place, Campbell catheter in place. EXTREMITIES: 2+ peripheral pulses with no evidence of peripheral edema and no calf tenderness noted. NEUROLOGIC patient is awake, alert and oriented -3. - Labs CBC & Chem 7: 01/30/18 05:53 01/30/18 05:53 Labs: Abnormal Lab Results - Last 24 Hours (Table) 01/29/18 01/29/18 01/29/18 Range/Units 12:36 17:01 21:05 RBC (4.30-5.90) m/uL Hgb (13.0-17.5) gm/dL Hct (39.0-53.0) % Lymphocytes # (1.0-4.8) k/uL BUN (9-20) mg/dL Creatinine (0.66-1.25) mg/dL Glucose (74-99) mg/dL POC Glucose (mg/dL) 367 H 345 H 279 H (75-99) mg/dL AST (17-59) U/L Total Protein (6.3-8.2) g/dL Albumin (3.5-5.0) g/dL 01/30/18 01/30/18 01/30/18 Range/Units 05:53 05:53 06:03 RBC 3.85 L (4.30-5.90) m/uL Hgb 12.6 L (13.0-17.5) gm/dL Hct 37.3 L (39.0-53.0) % Lymphocytes # 0.7 L (1.0-4.8) k/uL BUN 31 H (9-20) mg/dL Creatinine 1.50 H (0.66-1.25) mg/dL Glucose 107 H (74-99) mg/dL POC Glucose (mg/dL) 105 H (75-99) mg/dL AST 16 L (17-59) U/L Total Protein 4.8 L (6.3-8.2) g/dL Albumin 2.5 L (3.5-5.0) g/dL 01/30/18 01/30/18 Range/Units 11:41 12:04 RBC (4.30-5.90) m/uL Hgb (13.0-17.5) gm/dL Hct (39.0-53.0) % Lymphocytes # (1.0-4.8) k/uL BUN (9-20) mg/dL Creatinine (0.66-1.25) mg/dL Glucose (74-99) mg/dL POC Glucose (mg/dL) 44 L 147 H (75-99) mg/dL AST (17-59) U/L Total Protein (6.3-8.2) g/dL Albumin (3.5-5.0) g/dL Microbiology - Last 24 Hours (Table) 01/29/18 00:39 Urine Culture - Preliminary Urine,Catheterized Assessment and Plan Plan: Assessment and plan #1 small bowel obstruction, patient is scheduled for exploratory laparotomy with lysis of adhesions this afternoon #2 atrial fibrillation with rapid ventricular response, chronic persistent. #3 hypertension #4 diabetes #5 hyperlipidemia #6 coronary artery disease with prior LAD stenting in 2012 Plan We will increase the dose of Lopressor to 25 mg by mouth twice a day and given additional dose of 25 now. IV Cardizem drip has been discontinued. We will continue to monitor. DNP note has been reviewed, I agree with a documented findings and plan of care. Patient was seen and examined.
--- NOTE | 2018-01-30 13:57 | P.PN ---
Subjective Progress Note Date: 01/30/18 82-year-old male seen this morning at the bedside awake alert. Did note the epidural and Cardizem drip was stopped at midnight secondary to systolic blood pressure in the 70s per nursing report. Currently nasal gastric tube in place connected to suction 400 mL out for the last 8 hours. Current blood pressure 113/67 with a heart rate in the 90s telemetry atrial fibrillation afebrile patient's currently being followed by cardiology service defer to for recommendations This morning the patient is reporting abdominal discomfort improved anxious to get the gastric tube removed passing gas no stool pervera wound system in place Objective - Vital Signs Vital signs: Vital Signs Temp 97.5 F L 01/30/18 09:23 Pulse 109 H 01/30/18 09:23 Resp 18 01/30/18 08:00 BP 113/67 01/30/18 09:23 Pulse Ox 94 L 01/30/18 04:00 Intake & Output 01/29/18 01/30/18 01/30/18 18:59 06:59 18:59 Intake Total 1700 21.333 Output Total 1460 350 Balance 240 -328.667 Weight 69 kg Intake: IV 750 Intake, IV Titration 950 21.333 Amount D5-0.45% NaCl with KCl 900 20Meq/l 1,000 ml @ 150 mls/hr IV .Q6H40M HERNANDEZ Rx# :[id number] Diltiazem 50 mg In Sodium 50 21.333 Chloride 0.9% 40 ml @ 10 MG/HR 10 mls/hr IV .Q5H HERNANDEZ Rx#:[id number] Oral 0 Output: Gastric Drainage 1250 Urine 200 350 Estimated Blood Loss 10 Other: Voiding Method Indwelling Catheter Indwelling Catheter Indwelling Catheter - Exam Physical exam 82-year-old male pleasant oriented 3 talkative appears in no acute distress states abdominal pain significantly improved Lungs diminished at bases otherwise adequate air movement bilaterally no cough noted no conversational dyspnea noted Heart S1-S2 audible irregular monitor atrial fibrillation heart rate 80s to 90s current denying chest pain Abdomen surgical dressing site dry prevera wound system in place nasal gastric tube to suction indwelling Campbell catheter in place. Hypoactive bowel tones Extremities Venodyne's on to the bilateral lower extremities no edema - Labs CBC & Chem 7: 01/30/18 05:53 01/30/18 05:53 Labs: Abnormal Lab Results - Last 24 Hours (Table) 18 01/29/18 01/30/18 Range/Units 17:01 21:05 05:53 RBC 3.85 L (4.30-5.90) m/uL Hgb 12.6 L (13.0-17.5) gm/dL Hct 37.3 L (39.0-53.0) % Lymphocytes # 0.7 L (1.0-4.8) k/uL BUN (9-20) mg/dL Creatinine (0.66-1.25) mg/dL Glucose (74-99) mg/dL POC Glucose (mg/dL) 345 H 279 H (75-99) mg/dL AST (17-59) U/L Total Protein (6.3-8.2) g/dL Albumin (3.5-5.0) g/dL 01/30/18 01/30/18 01/30/18 Range/Units 05:53 06:03 11:41 RBC (4.30-5.90) m/uL Hgb (13.0-17.5) gm/dL Hct (39.0-53.0) % Lymphocytes # (1.0-4.8) k/uL BUN 31 H (9-20) mg/dL Creatinine 1.50 H (0.66-1.25) mg/dL Glucose 107 H (74-99) mg/dL POC Glucose (mg/dL) 105 H 44 L (75-99) mg/dL AST 16 L (17-59) U/L Total Protein 4.8 L (6.3-8.2) g/dL Albumin 2.5 L (3.5-5.0) g/dL 01/30/18 Range/Units 12:04 RBC (4.30-5.90) m/uL Hgb (13.0-17.5) gm/dL Hct (39.0-53.0) % Lymphocytes # (1.0-4.8) k/uL BUN (9-20) mg/dL Creatinine (0.66-1.25) mg/dL Glucose (74-99) mg/dL POC Glucose (mg/dL) 147 H (75-99) mg/dL AST (17-59) U/L Total Protein (6.3-8.2) g/dL Albumin (3.5-5.0) g/dL Microbiology - Last 24 Hours (Table) 01/29/18 00:39 Urine Culture - Preliminary Urine,Catheterized Assessment and Plan Assessment: Impression Present on admission abdominal pain nausea vomiting constipation suspect due to a small bowel obstruction Chronic Persistent atrial fibrillation with episodes of rapid ventricular response Exploratory laparotomy with lysis of adhesions for small bowel obstruction secondary to the adhesions done on January 29 Known coronary artery disease with prior stenting to the LAD 2012 Type 2 diabetes with episodes of hypoglycemia uncontrolled hemoglobin A1c 6.6 Hyperlipidemia Acute kidney injury suspect due to hypotensive episodes Plan Continue postop surgical care Continue recommendations by cardiology service defer to Pain control per anesthesia activity as tolerated DVT and GI prophylaxis Defer to medicine to address medical issues as they arise Further recommendations pending The above impression and plan of care have been discussed and directed by signing physician. Silvia Rausch nurse practitioner acting as scribe for signing physician.
--- NOTE | 2018-01-30 14:19 | CDI ---
Last Revision, August 2017 Documentation Clarification Form Date: 01/30/2018 2:14:00 PM From: Lisha LuoHaywoodCHRISTIANA camacho, CCDS Admit Date: 01/28/2018 9:17:00 AM Patient Name: Raj Cohen Visit Number: [id number] Discharge Date: 02/04/2018 ATTENTION: The Clinical Documentation Specialists (CDI) and [facility] Coding Staff appreciate your assistance in clarifying documentation. Please respond to the clarification below the line at the bottom and electronically sign. The CDI & [facility] Coding staff will review the response and follow-up if needed. Please note: Queries are made part of the Legal Health Record. If you have any questions, please contact the author of this message via ITS. Dr. Charlie Iglesias: Per the 01/30 cardiology progress note: "Chest x-ray shows evidence of mild congestive heart failure and probable small pleural effusions." No evidence of peripheral edema. History/Risk Factors: Hypertension, CAD w/stent, Chronic, Persistent A Fib on Coumadin; Hyperlipidemia & Diabetes Mellitus. Clinical Indicators: Admit with abdominal pain & nausea, found to have SBO due to adhesions status post exploratory laparotomy & lysis of adhesions. Also atrial fibrillation. VS: P 89 - 135, R 16-18, BP 106/55 - 144/83, PO 98 RA - 93 2Lnc Echocardiogram Results 01/28: EF 65-70% systolic function wnl, Mod TR, Mod MR, Mild pulmonary htn. Chest X Ray 01/28: Evidence of mild heart failure, probably small pleural effusion. Home meds: Metformin, Coumadin, Lopressor, MagOx, Zestril, insulin sq, Lipitor Treatment: IV Ms x2, IV Zofran x2, IV Protonix, IV fl rate 100, IV fluid bolus , IV Vit K. Insulin & Warfarin resumed postop. *Patient was hydrated preoperatively, no IV Lasix given. In your professional opinion, can you please clarify if the patient is also diagnosed with CHF and please specify the acuity and type of CHF if known? Diastolic Heart Failure: Acute Chronic Acute on Chronic Unable to Determine Other, please specify Please continue to document in your progress notes and discharge summary in order to capture severity of illness and risk of mortality. Include clinical findings that support your diagnosis. MTDD
[2018-01-30] MEDS: INSULIN DETEMIR 100 UNIT/ML 10 ML VIAL SQ SCH (14:22)
[2018-01-30 17:07] LABS: Glucose,Whole Blood 84 mg/dL (75-99)
[2018-01-30 18:47] LABS: Glucose,Whole Blood 81 mg/dL (75-99)
[2018-01-30 21:26] LABS: Glucose,Whole Blood 112 mg/dL (75-99)
[2018-01-31] MEDS: SODIUM CHLORIDE 0.9% 1,000 ML IV SCH ×6 (00:28→21:56)
[2018-01-31] MEDS: DILTIAZEM 50 MG in SODIUM CHLORIDE 0.9% 40 ML IV SCH (02:51)
[2018-01-31 03:27] LABS: Glucose,Whole Blood 130 mg/dL (75-99)
[2018-01-31 06:03] LABS: Glucose,Whole Blood 146 mg/dL (75-99)
[2018-01-31 06:20] LABS: Basophils % (A) 0 %; Eosinophils % (A) 0 %; HCT 39.6 % (39.0-53.0); HGB 13.2 gm/dL (13.0-17.5); Lymphocytes # (A) 0.7 k/uL (1.0-4.8); Lymphocytes % (A) 7 %; MCH 32.1 pg (25.0-35.0); MCHC 33.3 g/dL (31.0-37.0); MCV 96.4 fL (80.0-100.0); Mean Platelet Volume 8.6; Monocytes # (A) 0.5 k/uL (0-1.0); Monocytes % (A) 5 %; Neutrophils % (A) 85 %; Platelet Count 212 k/uL (150-450); RDW 14.3 % (11.5-15.5); WBC 9.4 k/uL (3.8-10.6)
[2018-01-31 06:23] LABS: INR 1.7 (<1.2)
[2018-01-31 06:24] LABS: Prothrombin Time 15.3 sec (9.0-12.0)
[2018-01-31 06:28] LABS: Albumin 2.6 g/dL (3.5-5.0); Total Protein 5.1 g/dL (6.3-8.2)
[2018-01-31 06:32] LABS: Potassium 4.1 mmol/L (3.5-5.1)
[2018-01-31] MEDS: INSULIN ASPART 100 UNIT/ML 1 ML 10 ML VIAL SQ SCH ×4 (06:59→21:55)
--- NOTE | 2018-01-31 07:08 | P.PN ---
Progress Note - Text 01/31 701am 82-year-old male status post exploratory lap by Dr. sapngler. Patient has an epidural catheter for postop pain control with the infusion was stopped yesterday by Dr. Greene because of low blood pressure. The infusion was never resumed and the patient continues to be comfortable . I asked the nursery DC the epidural
[2018-01-31] MEDS: HEPARIN SODIUM,PORCINE 5,000 UNIT/ML 1 ML VIAL SQ SCH ×3 (08:48→23:23)
[2018-01-31] MEDS: PANTOPRAZOLE 40 MG/10 ML VIAL IVP SCH (08:48)
[2018-01-31] MEDS: PIPERACILLIN-TAZOBACTAM 3.375 GM in DEXTROSE/WATER 1 50ML.BAG IVPB SCH ×3 (08:51→23:22)
[2018-01-31] MEDS: METOPROLOL TARTRATE 25 MG TAB PO SCH ×4 (09:35→21:15)
--- NOTE | 2018-01-31 10:08 | P.PN ---
Subjective Progress Note Date: 01/31/18 82-year-old male seen at the bedside this morning. states he did ambulate in the hallway 3 times yesterday. Anxious to have the gastric tube removed. States passing gas no stool. Indwelling Campbell catheter in place epidural was removed yesterday states the current pain medication is effective for pain control prevera wound system in place surgical dressing site dry few hypoactive bowel tones. Patient did have a bowel movement this morning and is passing gas Nasal gastric tube to suction patient is being followed by cardiology service current monitor showing atrial fibrillation controlled ventricular response. Patient did have an episode postop of atrial fibrillation RVR was started on IV Cardizem drip. Currently heart rate in the 80s to 90s currently on Lopressor 25 twice a day per cardiology's recommendation Objective - Vital Signs Vital signs: Vital Signs Temp 97.9 F 01/31/18 08:45 Pulse 100 01/31/18 08:45 Resp 20 01/31/18 08:45 BP 124/78 01/31/18 08:45 Pulse Ox 93 L 01/31/18 08:45 Intake & Output 01/30/18 01/31/18 01/31/18 18:59 06:59 18:59 Output Total 1300 800 Balance -1300 -800 Weight 72.7 kg Output: Gastric Drainage 800 Urine 500 800 Other: Voiding Method Indwelling Catheter Indwelling Catheter # Bowel Movements 0 - Exam Physical exam 82-year-old male pleasant oriented 3 sitting up in bed states he did walk in the hallway 3 times yesterday anxious to get up and start moving" pain medication effective for pain control Lungs diminished at bases otherwise adequate air movement bilaterally no cough noted no conversational dyspnea noted Heart S1-S2 audible irregular monitor atrial fibrillation heart rate 80s to 90s current denying chest pain Abdomen surgical dressing site dry prevera wound system in place nasal gastric tube to suction indwelling Campbell catheter in place. Hypoactive bowel tones passing gas had a bowel movement this morning Extremities Venodyne's on to the bilateral lower extremities no edema - Labs CBC & Chem 7: 01/31/18 05:44 01/31/18 05:44 Labs: Abnormal Lab Results - Last 24 Hours (Table) 01/30/18 01/30/18 01/30/18 Range/Units 11:41 12:04 21:24 RBC (4.30-5.90) m/uL Neutrophils # (1.3-7.7) k/uL Lymphocytes # (1.0-4.8) k/uL PT (9.0-12.0) sec INR (<1.2) Carbon Dioxide (22-30) mmol/L BUN (9-20) mg/dL Glucose (74-99) mg/dL POC Glucose (mg/dL) 44 L 147 H 112 H (75-99) mg/dL Calcium (8.4-10.2) mg/dL Total Protein (6.3-8.2) g/dL Albumin (3.5-5.0) g/dL 01/31/18 01/31/18 01/31/18 Range/Units 03:15 05:44 05:44 RBC 4.10 L (4.30-5.90) m/uL Neutrophils # 8.0 H (1.3-7.7) k/uL Lymphocytes # 0.7 L (1.0-4.8) k/uL PT (9.0-12.0) sec INR (<1.2) Carbon Dioxide 19 L (22-30) mmol/L BUN 27 H (9-20) mg/dL Glucose 151 H (74-99) mg/dL POC Glucose (mg/dL) 130 H (75-99) mg/dL Calcium 8.0 L (8.4-10.2) mg/dL Total Protein 5.1 L (6.3-8.2) g/dL Albumin 2.6 L (3.5-5.0) g/dL 01/31/18 01/31/18 Range/Units 05:44 05:56 RBC (4.30-5.90) m/uL Neutrophils # (1.3-7.7) k/uL Lymphocytes # (1.0-4.8) k/uL PT 15.3 H (9.0-12.0) sec INR 1.7 H (<1.2) Carbon Dioxide (22-30) mmol/L BUN (9-20) mg/dL Glucose (74-99) mg/dL POC Glucose (mg/dL) 146 H (75-99) mg/dL Calcium (8.4-10.2) mg/dL Total Protein (6.3-8.2) g/dL Albumin (3.5-5.0) g/dL Microbiology - Last 24 Hours (Table) 01/29/18 00:39 Urine Culture - Final Urine,Catheterized Assessment and Plan Assessment: Impression Present on admission abdominal pain nausea vomiting constipation suspect due to a small bowel obstruction Chronic Persistent atrial fibrillation with episodes of rapid ventricular response Exploratory laparotomy with lysis of adhesions for small bowel obstruction secondary to the adhesions done on January 29 Known coronary artery disease with prior stenting to the LAD 2012 Type 2 diabetes with episodes of hypoglycemia uncontrolled hemoglobin A1c 6.6 Hyperlipidemia Acute kidney injury suspect due to hypotensive episodes Plan remove the nasogastric Continue postop surgical care Continue recommendations by cardiology service defer to Pain control per anesthesia activity as tolerated DVT and GI prophylaxis Defer to medicine to address medical issues as they arise Further recommendations pending Okay to restart Coumadin Clear liquid diet The above impression and plan of care have been discussed and directed by signing physician. Silvia Rausch nurse practitioner acting as scribe for signing physician.
[2018-01-31 11:50] LABS: Glucose,Whole Blood 150 mg/dL (75-99)
--- NOTE | 2018-01-31 13:08 | P.PN ---
Subjective Progress Note Date: 01/31/18 This is an 82-year-old gentleman who follows with Dr. Jaquan Mosquera in the office. He has a known history of coronary artery disease with prior stent placement, chronic persistent atrial fibrillation on Coumadin for anticoagulation, hyperlipidemia, diabetes, hypertension, hypothyroidism, he presented to the hospital with symptoms of abdominal discomfort with associated nausea. KUB x-ray performed on admission showed findings compatible with high grade small bowel obstruction. EKG on arrival shows atrial fibrillation with a rapid ventricular response. An echocardiogram with Doppler study was performed which revealed an ejection fraction of 65-70%, moderate mitral regurg, moderate tricuspid regurg. Chest x-ray shows evidence of mild congestive heart failure and probable small pleural effusions. Pulmonary congestion is increased as compared with prior exam. Blood pressure 142/70 with a heart rate of 118, 96% on 3 L of oxygen, temperature this morning 98.5. INR on admission 9.0, 1.4 this morning after receiving fresh frozen plasma and vitamin K. CBC is normal, sodium 138, potassium 4.9, BUN 31, creatinine 0.9. At the time of my examination this morning, patient does complain of mild abdominal discomfort, he does have an NG tube and Campbell catheter in place. He is currently on IV Cardizem drip at 10 mg per hour. 01/30/2018 Patient was seen and examined this morning, sitting up in the chair at bedside. He went into rapid atrial fibrillation through the night and was given some Lanoxin. Patient was also on a Cardizem drip, which was discontinued because the patient was hypotensive. This morning his blood pressure is in the 1 teens and heart rate remained in the 1 teens therefore we gave an additional dose of 25 mg of metoprolol and increased his dose to twice a day. Overall patient is feeling better today, continues to have NG tube in place. 01/31/2018 Patient seen and examined this morning, he's been up ambulating in the hallway a few times a Mosquera today. Hemodynamically stable his heart rate this morning was up in the low 100s to 1 teens. We will increase his dose of beta georgina to 3 times a day today. He did have a bowel movement this morning, and his NG tube has been removed. Objective - Vital Signs Vital signs: Vital Signs Temp 96.6 F L 01/31/18 11:52 Pulse 109 H 01/31/18 11:52 Resp 24 01/31/18 11:52 BP 150/78 01/31/18 11:52 Pulse Ox 94 L 01/31/18 11:52 Intake & Output 01/30/18 01/31/18 01/31/18 18:59 06:59 18:59 Output Total 1300 800 651 Balance -9656 -434 -655 Weight 72.7 kg 72.7 kg Output: Gastric Drainage 800 450 Urine 500 800 200 Uretheral (Campbell) 200 Urine/Stool Mix 1 Other: Voiding Method Indwelling Catheter Indwelling Catheter Indwelling Catheter # Bowel Movements 0 1 - Exam PHYSICAL EXAMINATION: HEENT: Head is atraumatic, normocephalic. Pupils equal, round. Neck is supple. There is no elevated jugular venous pressure. HEART EXAMINATION: Heart S1 and S2 irregularly irregular CHEST EXAMINATION: Lungs are clear with mild diminished air entry to the bases .No chest wall tenderness is noted on palpation or with deep breathing. ABDOMEN: Soft, nontender. Bowel sounds are heard. No organomegaly noted. EXTREMITIES: 2+ peripheral pulses with no evidence of peripheral edema and no calf tenderness noted. NEUROLOGIC patient is awake, alert and oriented -3. - Labs CBC & Chem 7: 01/31/18 05:44 01/31/18 05:44 Labs: Abnormal Lab Results - Last 24 Hours (Table) 01/30/18 01/31/18 01/31/18 Range/Units 21:24 03:15 05:44 RBC (4.30-5.90) m/uL Neutrophils # (1.3-7.7) k/uL Lymphocytes # (1.0-4.8) k/uL PT (9.0-12.0) sec INR (<1.2) Carbon Dioxide 19 L (22-30) mmol/L BUN 27 H (9-20) mg/dL Glucose 151 H (74-99) mg/dL POC Glucose (mg/dL) 112 H 130 H (75-99) mg/dL Calcium 8.0 L (8.4-10.2) mg/dL Total Protein 5.1 L (6.3-8.2) g/dL Albumin 2.6 L (3.5-5.0) g/dL 01/31/18 01/31/18 01/31/18 Range/Units 05:44 05:44 05:56 RBC 4.10 L (4.30-5.90) m/uL Neutrophils # 8.0 H (1.3-7.7) k/uL Lymphocytes # 0.7 L (1.0-4.8) k/uL PT 15.3 H (9.0-12.0) sec INR 1.7 H (<1.2) Carbon Dioxide (22-30) mmol/L BUN (9-20) mg/dL Glucose (74-99) mg/dL POC Glucose (mg/dL) 146 H (75-99) mg/dL Calcium (8.4-10.2) mg/dL Total Protein (6.3-8.2) g/dL Albumin (3.5-5.0) g/dL 01/31/18 Range/Units 11:42 RBC (4.30-5.90) m/uL Neutrophils # (1.3-7.7) k/uL Lymphocytes # (1.0-4.8) k/uL PT (9.0-12.0) sec INR (<1.2) Carbon Dioxide (22-30) mmol/L BUN (9-20) mg/dL Glucose (74-99) mg/dL POC Glucose (mg/dL) 150 H (75-99) mg/dL Calcium (8.4-10.2) mg/dL Total Protein (6.3-8.2) g/dL Albumin (3.5-5.0) g/dL Microbiology - Last 24 Hours (Table) 01/29/18 00:39 Urine Culture - Final Urine,Catheterized Assessment and Plan Plan: Assessment and plan #1 small bowel obstruction, patient is scheduled for exploratory laparotomy with lysis of adhesions this afternoon #2 atrial fibrillation with rapid ventricular response, chronic persistent. #3 hypertension #4 diabetes #5 hyperlipidemia #6 coronary artery disease with prior LAD stenting in 2013 Plan We will increase the dose of Lopressor to 25 mg by mouth 3 times a day . We will continue to monitor. Once it is cleared from a surgical perspective, we will resume anticoagulation. DNP note has been reviewed, I agree with a documented findings and plan of care. Patient was seen and examined.
--- NOTE | 2018-01-31 13:47 | XR ---
EXAMINATION TYPE: XR chest 1V portable DATE OF EXAM: 01/31/2018 COMPARISON: 01/28/2018 INDICATION: Short of breath TECHNIQUE: Single frontal view of the chest is obtained. FINDINGS: The heart size is normal. The pulmonary vasculature is normal. Questionable infiltrates in the left infrahilar region. Minimal subsegmental atelectasis is not entir nighat excluded. There is a right-sided pneumoperitoneum. Was called to the floor nurse Viv by Dr. Caban by telephon e at the time of interpretation. Patient had recent abdominal surgery for adhesions which can account for the pneumoperitoneum. IMPRESSION: 1. Pneumoperitoneum. Correlate with patient's history. 2. Minimal subsegmental atelectasis at the left infrahilar region is not excluded. Lungs otherwise ap pear unremarkable.
[2018-01-31] MEDS ORDERED: FUROSEMIDE 10 MG/ML 2 ML VIAL IV ONE (16:01)
[2018-01-31 16:54] LABS: Glucose,Whole Blood 156 mg/dL (75-99)
[2018-01-31] MEDS: LISINOPRIL 20 MG TAB PO SCH (17:01)
[2018-01-31] MEDS ORDERED: WARFARIN 7.5 MG TAB PO SCH (18:00)
--- NOTE | 2018-01-31 18:21 | PN ---
PROGRESS NOTE DATE OF SERVICE: 01/31/2018 I am covering for for Dr. Riley. This 82-year-old gentleman who was admitted with small-bowel obstruction, had exploratory laparotomy and lysis of adhesions. The patient is being closely monitored. NG tube has just been removed. No chest pain. No palpitations. No fever. The patient is running some mild fever. Blood pressure is also elevated. EXAM: Alert and oriented x3. Pulse 106, blood pressure 161/95, respirations 24, temperature 100.9, pulse ox 96% on room air. PAST MEDICAL HISTORY: Reviewed. REVIEW OF SYSTEMS: CARDIOVASCULAR: No angina or palpitations. RESPIRATORY: As mentioned earlier. : As mentioned earlier. NERVOUS: No numbness, weakness. CURRENT MEDICATIONS: Reviewed, include: 1. Tylenol 650 every 6 hours p.r.n. 2. Cepacol. 3. Heparin 5 subcu q.h.s. 4. Dilaudid p.r.n. 5. NovoLog. 6. Lopressor 25 mg p.o. t.i.d. 7. Narcan. 8. Zofran. 9. Protonix. 10.Zosyn IV. 11.Coumadin 7.5 mg and 2.7 mg. EXAM (CONTINUED): HEENT: Conjunctivae normal. Oral mucosa moist. NECK: No jugular venous distention. No carotid bruits. No thyroid enlargement. No lymph node enlargement. CARDIOVASCULAR: S1, S2 muffled. RESPIRATORY: Breath sounds diminished in the bases. A few scattered rhonchi. No crackles. ABDOMEN: Soft, status post surgery. LEGS: No edema. No swelling. NERVOUS SYSTEM: Higher functions as mentioned earlier. Moves all 4 limbs. No focal motor or sensory deficits. LYMPHATIC: No lymphadenopathy in neck or axillae. SKIN: No ulcer, rash or bleeding. LABS: CBC within normal limits. INR is 1.7 and glucose 151. Albumin is 2.6 and a chest x- ray done today which was personally evaluated by me showed some minimal atelectasis. ASSESSMENT: 1. Small-bowel obstruction, status post exploratory laparotomy and lysis of adhesions. 2. Chronic atrial fibrillation with rapid ventricular rate. 3. Anticoagulation with Coumadin. 4. Supratherapeutic INR on admission. 5. Possibility of hypotension. 6. Acute kidney injury. 7. Diabetes mellitus type 2. 8. Hypokalemia. 9. Coronary artery disease with stenting to left anterior descending. 10.Hypertension. 11.Hyperlipidemia. 12.Mild pulmonary hypertension. 13.Hypothyroidism. 14.History of cerebrovascular accident. 15.Atelectasis. RECOMMENDATIONS AND DISCUSSION: Recommend to continue current medical management and symptomatic treatment. Otherwise at this time, will cut down the IV fluids and continue the rest of the medications. We will resume some of the home medications. See orders for further details. Monitor blood pressure closely. Monitor PT/INR closely. Chest x-ray was reviewed. I would also recommend hydralazine. I would also recommend a course of DuoNeb, recommend incentive spirometry. Further recommendations to follow. Repeat labs have been ordered. MMODL / IJN: [id number] /
[2018-01-31] MEDS: IPRATROPIUM-ALBUTEROL 3 ML NEB INHALATION SCH (19:53)
[2018-01-31 21:19] LABS: Glucose,Whole Blood 255 mg/dL (75-99)
[2018-01-31] MEDS: ACETAMINOPHEN TAB 325 MG TAB PO PRN (23:42)
[2018-01-31] MEDS: hydrALAZINE HCL 20 MG/ML 1 ML VIAL IVP PRN (23:42)
[2018-02-01 06:23] LABS: Glucose,Whole Blood 266 mg/dL (75-99)
[2018-02-01 06:43] LABS: Basophils % (A) 0 %; Eosinophils # (A) 0.1 k/uL (0-0.7); Eosinophils % (A) 1 %; HCT 40.2 % (39.0-53.0); HGB 13.7 gm/dL (13.0-17.5); Lymphocytes # (A) 0.8 k/uL (1.0-4.8); Lymphocytes % (A) 7 %; MCH 32.5 pg (25.0-35.0); MCV 95.7 fL (80.0-100.0); Mean Platelet Volume 8.2; Monocytes # (A) 0.7 k/uL (0-1.0); Monocytes % (A) 6 %; Neutrophils # (A) 9.6 k/uL (1.3-7.7); Neutrophils % (A) 84 %; Platelet Count 266 k/uL (150-450); RDW 14.4 % (11.5-15.5); WBC 11.4 k/uL (3.8-10.6)
[2018-02-01 06:50] LABS: INR 2.6 (<1.2)
[2018-02-01 07:05] LABS: ALT 27 U/L (21-72); AST 27 U/L (17-59); Albumin 2.6 g/dL (3.5-5.0); Alkaline Phosphatase 78 U/L (38-126); Anion Gap 19 mmol/L; Blood Urea Nitrogen 20 mg/dL (9-20); Carbon Dioxide 16 mmol/L (22-30); Chloride 102 mmol/L (98-107); Glucose 269 mg/dL (74-99); Magnesium 1.7 mg/dL (1.6-2.3); Potassium 3.5 mmol/L (3.5-5.1); Sodium 137 mmol/L (137-145); Total Bilirubin 0.8 mg/dL (0.2-1.3)
[2018-02-01] MEDS: LEVOTHYROXINE 75 MCG TAB PO SCH (07:07)
[2018-02-01] MEDS: INSULIN ASPART 100 UNIT/ML 1 ML 10 ML VIAL SQ SCH ×4 (07:07→21:20)
[2018-02-01] MEDS: IPRATROPIUM-ALBUTEROL 3 ML NEB INHALATION SCH ×3 (08:42→20:41)
[2018-02-01] MEDS: PIPERACILLIN-TAZOBACTAM 3.375 GM in DEXTROSE/WATER 1 50ML.BAG IVPB SCH ×2 (09:00→17:17)
[2018-02-01] MEDS: SODIUM CHLORIDE 0.9% 1,000 ML IV SCH (09:14)
[2018-02-01] MEDS: LISINOPRIL 20 MG TAB PO SCH (09:15)
[2018-02-01] MEDS: PANTOPRAZOLE 40 MG/10 ML VIAL IVP SCH (09:15)
[2018-02-01] MEDS: HEPARIN SODIUM,PORCINE 5,000 UNIT/ML 1 ML VIAL SQ SCH ×3 (09:15→22:54)
[2018-02-01] MEDS: METOPROLOL TARTRATE 25 MG TAB PO SCH ×3 (09:15→22:54)
--- NOTE | 2018-02-01 09:24 | P.PN ---
Progress Note - Text Progress Note Date: 02/01/18 The patient states he feels better. He's had several bowel movements. He is tolerating liquids. On exam his vital signs are stable. His abdomen soft. His incision is clean dry and intact. Patient will have his diet advanced. We anticipate discharge home the next 24- 48 hours.
--- NOTE | 2018-02-01 11:32 | P.PN ---
Subjective Progress Note Date: 02/01/18 This is an 82-year-old gentleman who follows with Dr. Jaquan Mosquera in the office. He has a known history of coronary artery disease with prior stent placement, chronic persistent atrial fibrillation on Coumadin for anticoagulation, hyperlipidemia, diabetes, hypertension, hypothyroidism, he presented to the hospital with symptoms of abdominal discomfort with associated nausea. KUB x-ray performed on admission showed findings compatible with high grade small bowel obstruction. EKG on arrival shows atrial fibrillation with a rapid ventricular response. An echocardiogram with Doppler study was performed which revealed an ejection fraction of 65-70%, moderate mitral regurg, moderate tricuspid regurg. Chest x-ray shows evidence of mild congestive heart failure and probable small pleural effusions. Pulmonary congestion is increased as compared with prior exam. Blood pressure 142/70 with a heart rate of 118, 96% on 3 L of oxygen, temperature this morning 98.5. INR on admission 9.0, 1.4 this morning after receiving fresh frozen plasma and vitamin K. CBC is normal, sodium 138, potassium 4.9, BUN 31, creatinine 0.9. At the time of my examination this morning, patient does complain of mild abdominal discomfort, he does have an NG tube and Campbell catheter in place. He is currently on IV Cardizem drip at 10 mg per hour. 01/30/2018 Patient was seen and examined this morning, sitting up in the chair at bedside. He went into rapid atrial fibrillation through the night and was given some Lanoxin. Patient was also on a Cardizem drip, which was discontinued because the patient was hypotensive. This morning his blood pressure is in the 1 teens and heart rate remained in the 1 teens therefore we gave an additional dose of 25 mg of metoprolol and increased his dose to twice a day. Overall patient is feeling better today, continues to have NG tube in place. 01/31/2018 Patient seen and examined this morning, he's been up ambulating in the hallway a few times a Mosquera today. Hemodynamically stable his heart rate this morning was up in the low 100s to 1 teens. We will increase his dose of beta georgina to 3 times a day today. He did have a bowel movement this morning, and his NG tube has been removed. 02/01/2018 Patient was seen and examined this morning, he's been up ambulating in the hallway most of the morning. Hemodynamically stable with a heart rate this morning in the 80s. He has been resumed on his Coumadin for anticoagulation. Objective - Vital Signs Vital signs: Vital Signs Temp 97.4 F L 02/01/18 08:00 Pulse 103 H 02/01/18 08:00 Resp 18 02/01/18 04:00 BP 126/66 02/01/18 08:00 Pulse Ox 96 02/01/18 08:00 Intake & Output 01/31/18 02/01/18 02/01/18 18:59 06:59 18:59 Intake Total 240 50 120 Output Total 1151 800 Balance -911 -750 120 Weight 72.7 kg 77.5 kg Intake: Intake, IV Titration 50 Amount Piperacillin-Tazobactam 3 50 .375 gm In Dextrose/Water 1 50ml.bag @ 12.5 mls/hr IVPB Q8HR [facility] Rx#: [id number] Oral 240 120 Output: Gastric Drainage 450 Urine 700 800 Straight 500 Uretheral (Campbell) 200 Urine/Stool Mix 1 Other: Voiding Method Toilet Toilet Urinal Urinal # Voids 2 2 1 # Bowel Movements 1 1 - Exam PHYSICAL EXAMINATION: HEENT: Head is atraumatic, normocephalic. Pupils equal, round. Neck is supple. There is no elevated jugular venous pressure. HEART EXAMINATION: Heart S1 and S2 irregularly irregular CHEST EXAMINATION: Lungs are clear with mild diminished air entry to the bases .No chest wall tenderness is noted on palpation or with deep breathing. ABDOMEN: Soft, nontender. Bowel sounds are heard. No organomegaly noted. EXTREMITIES: 2+ peripheral pulses with no evidence of peripheral edema and no calf tenderness noted. NEUROLOGIC patient is awake, alert and oriented -3. - Labs CBC & Chem 7: 02/01/18 06:03 02/01/18 06:03 Labs: Abnormal Lab Results - Last 24 Hours (Table) 01/31/18 01/31/18 01/31/18 Range/Units 11:42 16:42 21:18 WBC (3.8-10.6) k/uL RBC (4.30-5.90) m/uL Neutrophils # (1.3-7.7) k/uL Lymphocytes # (1.0-4.8) k/uL PT (9.0-12.0) sec INR (<1.2) Carbon Dioxide (22-30) mmol/L Glucose (74-99) mg/dL POC Glucose (mg/dL) 150 H 156 H 255 H (75-99) mg/dL Calcium (8.4-10.2) mg/dL Total Protein (6.3-8.2) g/dL Albumin (3.5-5.0) g/dL 02/01/18 02/01/18 02/01/18 Range/Units 06:03 06:03 06:03 WBC 11.4 H (3.8-10.6) k/uL RBC 4.20 L (4.30-5.90) m/uL Neutrophils # 9.6 H (1.3-7.7) k/uL Lymphocytes # 0.8 L (1.0-4.8) k/uL PT 23.0 H (9.0-12.0) sec INR 2.6 H (<1.2) Carbon Dioxide 16 L (22-30) mmol/L Glucose 269 H (74-99) mg/dL POC Glucose (mg/dL) (75-99) mg/dL Calcium 8.0 L (8.4-10.2) mg/dL Total Protein 5.0 L (6.3-8.2) g/dL Albumin 2.6 L (3.5-5.0) g/dL 02/01/18 Range/Units 06:21 WBC (3.8-10.6) k/uL RBC (4.30-5.90) m/uL Neutrophils # (1.3-7.7) k/uL Lymphocytes # (1.0-4.8) k/uL PT (9.0-12.0) sec INR (<1.2) Carbon Dioxide (22-30) mmol/L Glucose (74-99) mg/dL POC Glucose (mg/dL) 266 H (75-99) mg/dL Calcium (8.4-10.2) mg/dL Total Protein (6.3-8.2) g/dL Albumin (3.5-5.0) g/dL Assessment and Plan Plan: Assessment and plan #1 small bowel obstruction, patient is scheduled for exploratory laparotomy with lysis of adhesions this afternoon #2 atrial fibrillation with rapid ventricular response, chronic persistent. #3 hypertension #4 diabetes #5 hyperlipidemia #6 coronary artery disease with prior LAD stenting in 2013 Plan I'm cardiology's perspective, we will continue the patient on his current dose of beta georgina. Coumadin has been resumed for anticoagulation. Follow-up appointment with Dr. Mosquera in the office post discharge. DNP note has been reviewed, I agree with a documented findings and plan of care. Patient was seen and examined.
[2018-02-01 11:43] LABS: Glucose,Whole Blood 335 mg/dL (75-99)
--- NOTE | 2018-02-01 14:59 | XR ---
EXAMINATION TYPE: XR chest 1V portable DATE OF EXAM: 02/01/2018 COMPARISON: 01/31/2018 HISTORY: Shortness of breath and fluid overload TECHNIQUE: Single frontal view of the chest is obtained. FINDINGS: Hazy left basilar opacity obscures the left hemidiaphragm. There is blunting of the left c ostophrenic angle. Cardiomediastinal silhouette is enlarged. No pulmonary vascular congestion. Osseou s structures are intact. IMPRESSION: Hazy left basilar opacity favored to represent atelectasis with trace pleural effusion h owever early developing pneumonia is possible in the appropriate clinical setting. No pulmonary vascu lar congestion.
[2018-02-01 16:53] LABS: Glucose,Whole Blood 256 mg/dL (75-99)
[2018-02-01] MEDS: INSULIN DETEMIR 100 UNIT/ML 10 ML VIAL SQ SCH (17:15)
[2018-02-01] MEDS: metFORMIN 500 MG TAB PO SCH (17:16)
[2018-02-01] MEDS ORDERED: WARFARIN 3 MG TAB PO ONE (18:00)
--- NOTE | 2018-02-01 19:25 | PN ---
PROGRESS NOTE DATE OF SERVICE: 02/01/2018 I am covering for Dr. Riley. This 82-year-old gentleman who was admitted after small bowel obstruction had surgery. The patient has some mild abdominal distention. Patient has chronic atrial ablation, multiple medical problems also. The patient also is having mild shortness of breath. A chest x-ray was ordered by me which showed some mild atelectasis and vascular congestion. The patient is being closely monitored. The blood sugar is also being elevated. PAST MEDICAL HISTORY: Reviewed. REVIEW OF SYSTEMS: CARDIOVASCULAR: As mentioned earlier. GI: As mentioned earlier. : No dysuria. CENTRAL NERVOUS SYSTEM: No numbness or weakness. CURRENT MEDICATIONS ARE: Reviewed and include: 1. Tylenol 650 q.6h p.r.n. 2. DuoNeb q.i.d. and p.r.n. 4. Heparin 5000 subcu b.i.d. 5. Apresoline 10 mg p.r.n. 6. Dilaudid p.r.n. 7. NovoLog. 8. Levemir 10 units subcu q.h.s. 9. Synthroid. 10.Zestril. 11.Glucophage. 12.Lopressor. 13.Narcan. 14.Protonix. 15.Zosyn IV. 16.Coumadin. PHYSICAL EXAM: GENERAL: Patient is alert, oriented x2. Pulse is 103. Blood pressure 126/66, respiration 18, temp 97.2, pulse ox 98% on room air. HEENT: Conjunctivae normal. Oral mucosa moist. NECK: Is no jugular venous distention. No carotid bruit. No lymph node enlargement. CARDIOVASCULAR SYSTEM: S1, S2 muffled. RESPIRATORY: Breath sounds diminished in the bases. A few scattered rhonchi and crackles. ABDOMEN: Soft status post surgery. Mild diffuse distention. LEGS: No edema and no swelling. NERVOUS SYSTEM: Higher functions as mentioned earlier, moves all 4 limbs, no focal deficits. LYMPHATICS: No lymph nodes palpable in the neck, axillae or groin. SKIN: No ulcer, rash or bleeding. LAB DATA: At this time shows WBC of 11.2, hemoglobin 13.7. INR is 2.6. Labs are noted. ASSESSMENT: 1. Small-bowel obstruction status post exploratory laparotomy, lysis of adhesions. 2. Chronic atrial fibrillation with rapid ventricular rate. 3. Mild shortness of breath. 4. Anticoagulation with Coumadin, supratherapeutic INR on admission. 5. Possible hypotension. 6. Acute kidney injury. 7. Diabetes Type 2. 8. Hypokalemia. 9. Coronary artery disease with stent of the LAD. 10.Hypertensive. 11.Hyperlipidemia. 12.Mild pulmonary hypertension. 13.Hypothyroidism. 14.History of cerebrovascular accident. 15.Atelectasis. RECOMMENDATIONS AND DISCUSSION: Recommend to continue current medications, management and symptomatic treatment. Otherwise at this time I would recommend to cut down the IV fluids and continue with bronchodilators and incentive spirometry. Monitor PT and other labs closely. Further recommendations to follow. Prognosis guarded. Discussed with the family at length. See orders for details. MMODL / IJN: [id number] / DYLAN
[2018-02-01 21:14] LABS: Glucose,Whole Blood 253 mg/dL (75-99)
[2018-02-02] MEDS: PIPERACILLIN-TAZOBACTAM 3.375 GM in DEXTROSE/WATER 1 50ML.BAG IVPB SCH ×4 (03:32→23:39)
[2018-02-02 05:50] LABS: Basophils % (A) 0 %; Eosinophils # (A) 0.3 k/uL (0-0.7); Eosinophils % (A) 3 %; HCT 40.2 % (39.0-53.0); Lymphocytes % (A) 9 %; MCH 32.6 pg (25.0-35.0); MCHC 34.7 g/dL (31.0-37.0); MCV 93.8 fL (80.0-100.0); Mean Platelet Volume 7.2; Monocytes # (A) 0.7 k/uL (0-1.0); Monocytes % (A) 6 %; Neutrophils # (A) 9.4 k/uL (1.3-7.7); Neutrophils % (A) 81 %; Platelet Count 317 k/uL (150-450); RBC 4.29 m/uL (4.30-5.90); RDW 14.3 % (11.5-15.5); WBC 11.6 k/uL (3.8-10.6)
[2018-02-02 05:59] LABS: INR 4.5 (<1.2); Prothrombin Time 40.6 sec (9.0-12.0)
[2018-02-02] MEDS: LEVOTHYROXINE 75 MCG TAB PO SCH (06:09)
[2018-02-02] MEDS: metFORMIN 500 MG TAB PO SCH ×2 (06:09→18:12)
[2018-02-02 06:15] LABS: Glucose,Whole Blood 69 mg/dL (75-99)
[2018-02-02] MEDS: INSULIN ASPART 100 UNIT/ML 1 ML 10 ML VIAL SQ SCH ×4 (06:15→21:23)
[2018-02-02 06:16] LABS: Anion Gap 9 mmol/L; Blood Urea Nitrogen 14 mg/dL (9-20); Carbon Dioxide 29 mmol/L (22-30); Chloride 103 mmol/L (98-107); Glucose 70 mg/dL (74-99); Sodium 141 mmol/L (137-145)
[2018-02-02 06:18] LABS: Potassium 2.9 mmol/L (3.5-5.1)
[2018-02-02 06:29] LABS: Glucose,Whole Blood 62 mg/dL (75-99)
[2018-02-02 06:44] LABS: Glucose,Whole Blood 58 mg/dL (75-99)
[2018-02-02] MEDS ORDERED: Potassium Replacement Protocol 1 EACH MISC MISCELLANE PRN (07:07)
[2018-02-02 07:22] LABS: Glucose,Whole Blood 64 mg/dL (75-99)
[2018-02-02] MEDS: IPRATROPIUM-ALBUTEROL 3 ML NEB INHALATION SCH ×3 (07:27→21:04)
[2018-02-02 07:47] LABS: Glucose,Whole Blood 75 mg/dL (75-99)
[2018-02-02] MEDS: POTASSIUM CHLORIDE ER 20 MEQ TAB.ER PO SCH ×4 (08:04→23:39)
[2018-02-02] MEDS: METOPROLOL TARTRATE 25 MG TAB PO SCH ×3 (08:04→21:22)
[2018-02-02] MEDS: LISINOPRIL 20 MG TAB PO SCH (08:05)
[2018-02-02] MEDS: PANTOPRAZOLE 40 MG/10 ML VIAL IVP SCH (08:08)
[2018-02-02] MEDS: HEPARIN SODIUM,PORCINE 5,000 UNIT/ML 1 ML VIAL SQ SCH ×2 (08:08→16:32)
[2018-02-02] MEDS: INSULIN DETEMIR 100 UNIT/ML 10 ML VIAL SQ SCH (08:08)
--- NOTE | 2018-02-02 08:52 | P.PN ---
Progress Note - Text Progress Note Date: 02/02/18 The patient is resting comfortably in his bed. He denies any significant abdominal pain. He has had flatus and a bowel movement. On exam his vital signs are stable. His abdomen is soft. Resolving small bowel obstruction. Patient will most likely be discharged next 24-48 hours.
[2018-02-02] MEDS ORDERED: POTASSIUM CHLORIDE ER 20 MEQ TAB.ER PO SCH (11:00)
[2018-02-02 11:49] LABS: Glucose,Whole Blood 81 mg/dL (75-99)
--- NOTE | 2018-02-02 13:38 | PN ---
PROGRESS NOTE This is a gentleman with chronic atrial fibrillation, who also has had a bowel surgery and resection performed. He is doing better, but unfortunately INR is up to 4.5. We will hold Coumadin. His potassium is low. We supplement this. Atrial fib rate is controlled. He is doing well otherwise. Vital signs are stable. S1-S2 heard normally. Lungs reveal improved air entry. Irregularity in rhythm is noted. Lungs reveal improved air entry. Abdomen is distended, but he is passing gas. Lungs are clear. Rest of physical examination unchanged. Plan is to hold Coumadin. Continue observation. Check PT/INR tomorrow and supplement potassium. MMODL / IJN: [id number] /
[2018-02-02] MEDS: POTASSIUM CHLORIDE 10 MEQ in WATER FOR INJECTION 1 100ML.BAG IVPB SCH ×2 (15:11→16:29)
[2018-02-02 16:44] LABS: Glucose,Whole Blood 69 mg/dL (75-99)
--- NOTE | 2018-02-02 17:23 | PN ---
PROGRESS NOTE DATE OF SERVICE: 02/02/2018 I am covering for Dr. Riley. This 82-year-old gentleman was admitted with partial small bowel obstruction and surgery. The patient had some abdominal distention, but currently the patient also had significant hypokalemia and hypoglycemia also. The patient has shortness of breath yesterday. The chest x-ray done yesterday which was reviewed personally by me showed some CHF and atelectasis. The patient breathing treatments and multiple consultants are following the patient closely. PAST MEDICAL: Reviewed. REVIEW OF SYSTEMS: Cardiovascular System: As mentioned earlier. Respiratory: As mentioned earlier. GI: As mentioned earlier. : No dysuria. Central nervous system: No numbness, weakness. CURRENT MEDICATIONS ARE: 1. Tylenol 650 q.6h p.r.n. 2. DuoNeb q.i.d. and p.r.n. 4. Heparin 5000 subcu b.i.d. 5. Apresoline 10 mg p.r.n. 6. Dilaudid p.r.n. 7. Levemir 10 units subcu q.h.s. 8. Synthroid 75 mcg p.o. daily. 9. Zestril 20 mg. 10.Glucophage 500 mg p.o. b.i.d. 11.Lopressor. 12.Narcan 0.2 q.2h p.r.n. 13.Protonix 40 mg. 14.Zosyn. PHYSICAL EXAM: Patient is alert and oriented x3. Pulse is 110, blood pressure is 130/77, respirations 16, temperature 97 degrees, pulse ox 98% on room air. HEENT: Conjunctivae normal. Oral mucosa moist. NECK is no jugular venous distention. No carotid bruit. No lymph node enlargement. Cardiovascular system: Tachycardia. Respirations: Breath sounds diminished in the bases. A few scattered rhonchi. ABDOMEN: Soft. Status post surgery. Legs no edema no swelling. NERVOUS SYSTEM: Higher functions as mentioned earlier, moves all 4 limbs, no focal motor or sensory deficits. Lymphatics: No lymph nodes palpable in the neck, axillae or groin. SKIN: No ulcer, rash, bleeding. LABS: Accu-Cheks 58, 64, 75, and 81. Other labs are WBC 11.3, potassium 2.9. ASSESSMENT: 1. Small-bowel obstruction status post exploratory laparotomy and lysis of adhesions. 2. Severe hypokalemia. 3. Hypoglycemia and uncontrolled diabetes mellitus type 2. 4. Chronic atrial fibrillation with rapid ventricular rate. 5. Mild shortness of breath. 6. Atelectasis. 7. Anticoagulation with Coumadin supratherapeutic INR. 8. Hypotension. 9. Acute kidney injury. 10.Diabetes type 2. 11.Coronary artery disease and stent in LAD. 12.Hypertension. 13.Hyperlipidemia. 14.Mild pulmonary hypertension. 15.Hypothyroidism. 16.History of cerebrovascular accident. 17.Atelectasis. RECOMMENDATIONS AND DISCUSSION: Recommend to continue current medications, continue to monitor, symptomatic treatment. Today the INR is 4.5. Patient is on vitamin K. I would recommend potassium supplementation at least 200 mEq and repeat potassium. As far as the blood sugars are concerned, blood sugars are reviewed and I would recommend to cut down the Lantus to 50 units subcu q.a.m. and continue to monitor. Please note patient brittle diabetes mellitus and we will continue to monitor and further recommendations to follow. MMODL / IJN: [id number] / DYLAN
[2018-02-02 21:06] LABS: Glucose,Whole Blood 107 mg/dL (75-99)
[2018-02-02] MEDS: ACETAMINOPHEN TAB 325 MG TAB PO PRN (21:20)
[2018-02-03] MEDS: hydrALAZINE HCL 20 MG/ML 1 ML VIAL IVP PRN (04:27)
[2018-02-03] MEDS: HEPARIN SODIUM,PORCINE 5,000 UNIT/ML 1 ML VIAL SQ SCH ×4 (04:29→22:58)
[2018-02-03 06:09] LABS: Glucose,Whole Blood 226 mg/dL (75-99)
[2018-02-03] MEDS: metFORMIN 500 MG TAB PO SCH ×2 (06:24→17:17)
[2018-02-03] MEDS: LEVOTHYROXINE 75 MCG TAB PO SCH (06:24)
[2018-02-03] MEDS: INSULIN ASPART 100 UNIT/ML 1 ML 10 ML VIAL SQ SCH ×4 (06:27→21:23)
[2018-02-03 06:34] LABS: Basophils % (A) 0 %; Eosinophils # (A) 0.2 k/uL (0-0.7); Eosinophils % (A) 1 %; HCT 40.8 % (39.0-53.0); HGB 13.8 gm/dL (13.0-17.5); Lymphocytes # (A) 0.9 k/uL (1.0-4.8); Lymphocytes % (A) 8 %; MCH 31.9 pg (25.0-35.0); MCHC 33.8 g/dL (31.0-37.0); MCV 94.4 fL (80.0-100.0); Mean Platelet Volume 7.2; Monocytes # (A) 0.5 k/uL (0-1.0); Monocytes % (A) 4 %; Neutrophils # (A) 9.6 k/uL (1.3-7.7); Neutrophils % (A) 85 %; Platelet Count 315 k/uL (150-450); Poikilocytosis Slight; RBC 4.32 m/uL (4.30-5.90); RDW 14.9 % (11.5-15.5); WBC 11.3 k/uL (3.8-10.6)
[2018-02-03 06:40] LABS: INR 3.4 (<1.2); Prothrombin Time 30.8 sec (9.0-12.0)
[2018-02-03 06:50] LABS: Anion Gap 10 mmol/L; Blood Urea Nitrogen 10 mg/dL (9-20); Calcium 8.1 mg/dL (8.4-10.2); Carbon Dioxide 25 mmol/L (22-30); Chloride 101 mmol/L (98-107); Glucose 228 mg/dL (74-99); Potassium 3.8 mmol/L (3.5-5.1); Sodium 136 mmol/L (137-145)
[2018-02-03] MEDS: IPRATROPIUM-ALBUTEROL 3 ML NEB INHALATION SCH ×3 (07:59→19:59)
[2018-02-03] MEDS: PANTOPRAZOLE 40 MG/10 ML VIAL IVP SCH (08:37)
[2018-02-03] MEDS: METOPROLOL TARTRATE 25 MG TAB PO SCH (08:37)
[2018-02-03] MEDS: LISINOPRIL 20 MG TAB PO SCH (08:37)
[2018-02-03] MEDS: INSULIN DETEMIR 100 UNIT/ML 10 ML VIAL SQ SCH (08:38)
[2018-02-03] MEDS: PIPERACILLIN-TAZOBACTAM 3.375 GM in DEXTROSE/WATER 1 50ML.BAG IVPB SCH ×3 (08:38→22:58)
[2018-02-03] MEDS ORDERED: METOPROLOL TARTRATE 25 MG TAB PO STA ×2 (09:30→11:23)
[2018-02-03] MEDS ORDERED: guaiFENesin SYRUP 100MG/5ML 200 MG/10 ML CUP PO PRN (10:57)
[2018-02-03 11:51] LABS: Glucose,Whole Blood 220 mg/dL (75-99)
--- NOTE | 2018-02-03 12:03 | XR ---
EXAMINATION TYPE: XR chest 1V portable DATE OF EXAM: 02/03/2018 COMPARISON: 02/01/2018 HISTORY: Shortness of breath TECHNIQUE: Single frontal view of the chest is obtained. FINDINGS: Left basilar subsegmental atelectasis and trace pleural effusion blunting the left costoph renic angle. Right basilar subsegmental atelectasis is also seen. Cardiomediastinal silhouette is mil dly enlarged. Remainder the lungs are clear. Moderate degenerative changes of the shoulder joints are seen. Postsurgical clips and sutures are present in the left upper quadrant. IMPRESSION: Bibasilar atelectasis and trace left pleural effusion. Otherwise no acute cardiopulmonar y process.
--- NOTE | 2018-02-03 16:18 | PN ---
PROGRESS NOTE Mr. Cohen is in atrial fib, rate control is good. INR is 3.4. He has had a bowel movement. He has a bowel resection, he is doing well overall. Vital signs stable. S1-S2 heard normally with irregular rate and rhythm. Lungs are clear. Abdomen is soft. The rest of physical examination is unchanged. This gentleman can be discharged today, but no Coumadin today or tomorrow and to have PT/INR checked in the next 48 hours. I discussed this with the patient in detail. MMODL / IJN: [id number] /
[2018-02-03 16:58] LABS: Glucose,Whole Blood 167 mg/dL (75-99)
--- NOTE | 2018-02-03 19:21 | PN ---
PROGRESS NOTE DATE OF SERVICE: 02/03/2018 I am covering for Dr. Riley. INTERVAL HISTORY: This 82-year-old gentleman who was admitted with small bowel obstruction also complaining of continuous cough at this time. Overall, patient is making significant improvement. Chest x-ray showed bilateral atelectasis. No chest pain. No palpitations. No fever. EXAM: Alert and oriented x3. Pulse 97, blood pressure 118/79, respirations 18, temperature 98.1, pulse ox 98% room air. HEENT: Conjunctivae normal. NECK: No JVD. CARDIAC: S1, S2. RESPIRATORY: Diminished breath sounds at the bases. Scattered rhonchi. ABDOMEN: Soft. Status post surgery. LEGS: No edema. NERVOUS SYSTEM: No focal deficits. LABS: WBC 7.3. INR is 3.4. ASSESSMENT: 1. Small-bowel obstruction status post exploratory laparotomy and lysis of adhesions. 2. Severe hypokalemia. 3. Bilateral atelectasis. 4. Hypoglycemia and uncontrolled diabetes type 2. 5. Chronic atrial fibrillation with rapid ventricular rate. 6. Anticoagulation with Coumadin with supratherapeutic INR. 7. Hypotension. 8. Acute kidney injury. 9. Diabetes type 2. 10.CAD and stent in LAD. 11.Hypertension. 12.Hyperlipidemia. 13.Mild pulmonary hypertension. 14.Hypothyroidism. 15.History of cerebrovascular accident. 16.Atelectasis. RECOMMENDATIONS: Recommend to continue current medication, continue to monitor, symptomatic treatment. Otherwise, at this time I would recommend to continue the bronchodilators, closely monitor, closely follow with Cardiology. Guarded prognosis because of multiple complex medical issues. Further recommendations to follow. MMODL / IJN: [id number] /
[2018-02-03] MEDS: METOPROLOL TARTRATE 50 MG TAB PO SCH (20:13)
[2018-02-03 21:26] LABS: Glucose,Whole Blood 142 mg/dL (75-99)
[2018-02-04] MEDS: hydrALAZINE HCL 20 MG/ML 1 ML VIAL IVP PRN (05:33)
[2018-02-04 05:37] VITALS: TEMP 97.6
[2018-02-04 06:14] LABS: Glucose,Whole Blood 132 mg/dL (75-99)
[2018-02-04] MEDS: INSULIN ASPART 100 UNIT/ML 1 ML 10 ML VIAL SQ SCH ×2 (06:15→12:02)
[2018-02-04] MEDS: LEVOTHYROXINE 75 MCG TAB PO SCH (06:16)
[2018-02-04 06:24] LABS: Basophils % (A) 0 %; Eosinophils # (A) 0.2 k/uL (0-0.7); Eosinophils % (A) 1 %; HCT 41.4 % (39.0-53.0); HGB 13.9 gm/dL (13.0-17.5); Lymphocytes # (A) 1.4 k/uL (1.0-4.8); Lymphocytes % (A) 12 %; MCH 32.3 pg (25.0-35.0); MCHC 33.5 g/dL (31.0-37.0); MCV 96.2 fL (80.0-100.0); Mean Platelet Volume 7.2; Monocytes # (A) 0.4 k/uL (0-1.0); Monocytes % (A) 3 %; Neutrophils # (A) 9.8 k/uL (1.3-7.7); Neutrophils % (A) 82 %; Platelet Count 316 k/uL (150-450); RBC 4.31 m/uL (4.30-5.90); RDW 15.1 % (11.5-15.5); WBC 11.9 k/uL (3.8-10.6)
[2018-02-04 06:38] LABS: Anion Gap 12 mmol/L; Blood Urea Nitrogen 10 mg/dL (9-20); Calcium 8.3 mg/dL (8.4-10.2); Carbon Dioxide 30 mmol/L (22-30); Chloride 97 mmol/L (98-107); Glucose 141 mg/dL (74-99); Potassium 3.6 mmol/L (3.5-5.1); Sodium 139 mmol/L (137-145)
[2018-02-04] MEDS: METOPROLOL TARTRATE 50 MG TAB PO SCH (07:55)
[2018-02-04] MEDS: metFORMIN 500 MG TAB PO SCH (07:55)
[2018-02-04] MEDS: LISINOPRIL 20 MG TAB PO SCH (07:55)
[2018-02-04] MEDS: HEPARIN SODIUM,PORCINE 5,000 UNIT/ML 1 ML VIAL SQ SCH (07:56)
[2018-02-04] MEDS: PANTOPRAZOLE 40 MG/10 ML VIAL IVP SCH (07:56)
[2018-02-04] MEDS: INSULIN DETEMIR 100 UNIT/ML 10 ML VIAL SQ SCH (08:03)
[2018-02-04] MEDS: PIPERACILLIN-TAZOBACTAM 3.375 GM in DEXTROSE/WATER 1 50ML.BAG IVPB SCH (08:03)
[2018-02-04] MEDS: IPRATROPIUM-ALBUTEROL 3 ML NEB INHALATION SCH ×2 (08:12→12:29)
[2018-02-04] MEDS ORDERED: HYDROcodone/APAP 5-325MG 1 EACH TAB PO PRN (08:54)
[2018-02-04 09:33] VITALS: BMI 23.2
[2018-02-04] MEDS ORDERED: amLODIPine 5 MG TAB PO SCH (09:45)
[2018-02-04 09:56] LABS: INR 2.1 (<1.2); Prothrombin Time 19.2 sec (9.0-12.0)
--- NOTE | 2018-02-04 10:59 | P.DS ---
Providers Date of admission: 01/28/18 09:17 Expected date of discharge: 02/04/18 Attending physician: Raleigh Spangler Consults: 01/28/18 13:11 Consult Physician Urgent Consulting Provider: Jose Luis Reaves Consult Reason/Comments: Cardiac management A. fib RVR Do you want consulting provider notified?: Yes 01/28/18 13:12 Consult Physician Urgent Consulting Provider: Carlos Riley Consult Reason/Comments: med mtg Do you want consulting provider notified?: Yes Primary care physician: Carlos Riley [facility] Course: 82-year-old male who presented to the emergency room with complaints of abdominal pain with nausea. Patient states that he has had been vomiting for 2 -3 days prior to his admission. x-ray in the emergency room shows significant small bowel obstruction. Patient does have a history of atrial fibrillation and been on anticoagulation Coumadin. In the emergency room the INR was elevated to 9 this was corrected with fresh frozen plasma and vitamin K. Cardiology did see the patient and treated patient for episodes of atrial fibrillation with a rapid ventricular response. An echocardiogram was done this admission an injection fraction 65-70% with moderate mitral regurg. Chest x-ray suggests mild congestive heart failure with probable small pleural effusions. Patient was followed throughout the hospitalization by cardiology service and when appropriate the anticoagulation was restarted postoperatively. Patient did undergo on January 29 exploratory laparotomy with lysis of adhesions due to a small bowel obstruction. Postop no new events. Atrial fibrillation rate controlled after adjusting the beta blockers per cardiology's recommendations on the day of discharge patient was up ambulatory on the unit INR down to 2.1 from all consulting physicians patient was felt to be hemodynamically stable and appropriate proceed with a discharge to home Impression Present on admission abdominal pain nausea vomiting constipation suspect due to a small bowel obstruction Chronic Persistent atrial fibrillation with episodes of rapid ventricular response Exploratory laparotomy with lysis of adhesions for small bowel obstruction secondary to the adhesions done on January 29 Known coronary artery disease with prior stenting to the LAD 2012 Type 2 diabetes with episodes of hypoglycemia uncontrolled hemoglobin A1c 6.6 Hyperlipidemia Acute kidney injury suspect due to hypotensive episodes Present on admission supratherapeutic INR of 9.0 resolved with the omission of vitamin K and fresh frozen plasma History of nicotine dependency former cigarette smoker History of a prior CVA 2016 Mild pulmonary hypertension Hypothyroidism The above impression and plan of care have been discussed and directed by signing physician. Silvia Rausch nurse practitioner acting as scribe for signing physician. Patient Condition at Discharge: Fair Plan - Discharge Summary New Discharge Prescriptions: Continue Lisinopril [Zestril] 20 mg PO DAILY Insulin Detemir [Levemir] 20 unit SQ QAM Insulin Aspart [NovoLOG (formulary)] See Protocol SQ ACHS Atorvastatin [Lipitor] 40 mg PO HS Warfarin [Coumadin] 3.75 mg PO TU Warfarin [Coumadin] 7.5 mg PO SUMOWETHFRSA Metoprolol Tartrate [Lopressor] 25 mg PO BID #60 tab metFORMIN HCL 500 mg PO BID Levothyroxine Sodium [Synthroid] 75 mcg PO DAILY@0630 #30 tab Multivitamins, Thera [Multivitamin (formulary)] 1 tab PO DAILY Magnesium Oxide [Mag-Ox] 250 mg PO DAILY Aspirin EC [Ecotrin] 325 mg PO DAILY Ascorbic Acid [Vitamin C] 500 mg PO DAILY Discharge Medication List Atorvastatin [Lipitor] 40 mg PO HS 07/19/16 [History] Insulin Aspart [NovoLOG (formulary)] See Protocol SQ ACHS 07/19/16 [History] Insulin Detemir [Levemir] 20 unit SQ QAM 07/19/16 [History] Lisinopril [Zestril] 20 mg PO DAILY 07/19/16 [History] Warfarin [Coumadin] 3.75 mg PO TU 07/19/16 [History] Warfarin [Coumadin] 7.5 mg PO SUMOWETHFRSA 07/19/16 [History] Metoprolol Tartrate [Lopressor] 25 mg PO BID #60 tab 08/01/16 [Rx] metFORMIN HCL 500 mg PO BID 03/14/17 [History] Levothyroxine Sodium [Synthroid] 75 mcg PO DAILY@0630 #30 tab 03/15/17 [Rx] Ascorbic Acid [Vitamin C] 500 mg PO DAILY 01/24/18 [History] Aspirin EC [Ecotrin] 325 mg PO DAILY 01/24/18 [History] Magnesium Oxide [Mag-Ox] 250 mg PO DAILY 01/24/18 [History] Multivitamins, Thera [Multivitamin (formulary)] 1 tab PO DAILY 01/24/18 [History ] Follow up Appointment(s)/Referral(s): Bud Mosquera MD [STAFF PHYSICIAN] - 1 Week Carlos Riley DO [Primary Care Provider] - 02/11/18 1:40 pm Raleigh Spangler MD [STAFF PHYSICIAN] - 02/06/18 4:00 pm Ambulatory/Diagnostic Orders: Prothrombin Time INR [LAB.AMB] Time Frame: 02/06/18, Location: Determined By Patient Patient Instructions/Handouts: Bowel Resection (DC), Acute Wound Care (DC) Activity/Diet/Wound Care/Special Instructions: No tub bath for six weeks. Shower daily. No lifting over 10 pounds for the next 6 weeks. continue prevera wound system untill seen by dr spangler in office visit May use ice packs to surgical site. do not remove surgical dressing until seen by Dr. spangler Resume home Coumadin dose Home care nurse to draw for a pro time and INR this calling results to Dr. BLANCA Mosquera for Coumadin dosing Discharge Disposition: HOME WITH HOME HEALTH SERVICES
[2018-02-04 12:01] LABS: Glucose,Whole Blood 146 mg/dL (75-99)
[2018-02-04 12:09] VITALS: BP 147/74; PULSE 85; RESP 17
--- NOTE | 2018-02-04 13:27 | P.PN ---
Subjective Progress Note Date: 02/04/18 01/29/2018 82-year-old male who presented to the emergency room on 01/28/2018 with a chief complaint of abdominal pain. The patient was evaluated by Dr. Riley in the outpatient setting. He was prescribed Miralax and enemas. He was instructed to come to the emergency room if he did not have a bowel movement or if his abdominal pain got worse. The patient states the pain increased in severity and he started vomiting and he decided to come to the emergency room for further evaluation. KUB x-ray revealed findings compatible with high-grade small bowel obstruction. Small bowel loops measuring up to 5.7 cm. No free air was visualized. The patient was admitted to the hospital under the care of Dr. Bailey. Dr. Riley was consulted for medical management. The patient is currently on a cardizem drip secondary to atrial fibrillation with rapid ventricular response. INR was 9.0 upon admission. Repeat INR is 1.2 after administration of vitamin K and 2 units fresh frozen plasma. Chest x-ray was completed on 01/28/2018 revealing mild heart failure. There are probably small pleural effusions. Pulmonary congestion has increased compared to last exam. Echocardiogram was completed revealing ejection fraction of ejection fraction of 65-70%, LAD is severely dilated, moderate mitral regurgitation, moderate tricuspid regurgitation, and mild pulmonary hypertension. The patient is NPO and is scheduled for exploratory laparotomy with Dr. Bailey today. NG tube is intact to LIS with bilious output. Urinary catheter is also noted with clear yellow output. Patient complains of mild abdominal pain. Reports it is improved since yesterday. Blood sugars have been elevated in the 300s. He is currently on D5.45 at 150cc/hr. He is on Novolog sliding scale. 01/30/2018 Patient seen and examined at the bedside on rounds with Dr. Riley. Patient is awake and alert. Sitting up in bed. He is POD #1 exploratory laparotomy with lysis of adhesions. NG tube remains intact to LIS. Epidural was placed for pain management. Patient become hypotensive overnight with systolic blood pressures in the 70s. Anesthesia was notified and epidural was stopped. Nursing states that anesthesia stated epidural could be resumed at 3cc/hr if needed. Patient is currently receiving Morphine 2mg Q4 hours PRN. Patient states his pain is tolerable at this time. Cardizem drip was also discontinued this morning per cardiology secondary to hypotension. Patient received Digoxin IVP and also PO lopressor. Heart rate remains in low 100s. Blood pressure has improved to 113/ 67. IV fluids are ordered at 125cc/hr. Blood sugars are significantly improved after discontinuation of D5.45. Levemir was restarted last night. Patients blood sugar this morning is 107. Patient is currently NPO. He denies passing flatus. Creatinine this morning is 1.50, up from 0.91 yesterday. He denies chest pain or pressure. Denies shortness of breath. 01/31/2018-02/03/2018-Notes per covering provider 02/04/2018 Patient seen and examined at the bedside. Patient is awake and alert. He is tolerating PO intake. Denies nausea or vomiting. He is passing gas and having bowel movements. Coumadin has been restarted since surgery. INR today is 2.1. He is anxious to be discharged home. Objective - Vital Signs Vital signs: Vital Signs Temp 97.6 F 02/04/18 08:00 Pulse 82 02/04/18 08:00 Resp 18 02/04/18 08:00 BP 166/78 02/04/18 08:00 Pulse Ox 96 02/04/18 08:10 Intake & Output 02/03/18 02/04/18 02/04/18 18:59 06:59 18:59 Intake Total 360 160 240 Balance 360 160 240 Weight 73.4 kg 73.4 kg Intake: IV 160 0.9 160 Oral 360 240 Other: Voiding Method Toilet Toilet Urinal Urinal # Voids 2 1 1 # Bowel Movements 0 - Exam GENERAL: This is a 82-year-old male in no apparent distress at the time of examination. Pleasant and cooperative. HEENT: Head is atraumatic, normocephalic. Pupils are equal, round, and reactive to light. Sclerae anicteric. Conjunctivae are clear. Mucus membranes of the mouth are moist. Neck is supple. RESPIRATORY: Clear to ausculation. No wheezes, rales, or rhonchi. No use of accessory muscles. Patient maintaining oxygen saturation greater than 92%. No chest wall tenderness is noted on palpation or with deep breathing. CARDIOVASCULAR: Irregular rhythm. Telemetry reveals atrial fibrillation. S1 and S2 noted. No systolic or diastolic murmur auscultated. No JVD noted. No S3 or S4 noted. GASTROINTESTINAL: Surgical sites without drainage or signs of infection. Abdomen remains soft. Bowel sounds noted INTEGUMENTARY: No cyanosis. No jaundice. No rashes noted. No cellulitis noted. EXTREMITIES: 2+ peripheral pulses. No evidence of peripheral edema. No calf tenderness noted. NEUROLOGIC: Cranial nerves II-XII intact. PSYCHIATRIC: Awake, alert, and oriented X 3. Appropriate affect. Intact judgement and insight. - Labs CBC & Chem 7: 02/04/18 05:45 02/04/18 05:45 Labs: Abnormal Lab Results - Last 24 Hours (Table) 02/03/18 02/03/18 02/03/18 Range/Units 11:48 16:52 21:22 WBC (3.8-10.6) k/uL Neutrophils # (1.3-7.7) k/uL PT (9.0-12.0) sec INR (<1.2) Chloride (98-107) mmol/L Glucose (74-99) mg/dL POC Glucose (mg/dL) 220 H 167 H 142 H (75-99) mg/dL Calcium (8.4-10.2) mg/dL 02/04/18 02/04/18 02/04/18 Range/Units 05:45 05:45 06:13 WBC 11.9 H (3.8-10.6) k/uL Neutrophils # 9.8 H (1.3-7.7) k/uL PT (9.0-12.0) sec INR (<1.2) Chloride 97 L (98-107) mmol/L Glucose 141 H (74-99) mg/dL POC Glucose (mg/dL) 132 H (75-99) mg/dL Calcium 8.3 L (8.4-10.2) mg/dL 02/04/18 Range/Units 09:33 WBC (3.8-10.6) k/uL Neutrophils # (1.3-7.7) k/uL PT 19.2 H (9.0-12.0) sec INR 2.1 H (<1.2) Chloride (98-107) mmol/L Glucose (74-99) mg/dL POC Glucose (mg/dL) (75-99) mg/dL Calcium (8.4-10.2) mg/dL Assessment and Plan Plan: ASSESSMENT: Small bowel obstruction, present on admission, s/p exploratory laparotomy with lysis of adhesions Chronic atrial fibrillation with rapid ventricular response, on long-term anticoagulation with Coumadin Supratherapeutic INR, INR 9.0 on admission, resolved with administration of vitamin K and fresh frozen plasma Postoperative hypotension, likely related to epidural infusion and hypovolemia, improving Acute kidney injury, creatinine 1.50, baseline 0.90, likely due to hypotensive episodes overnight and hypovolemia Diabetes mellitus, type II, hemoglobin A1c 6.6% Hyperglycemia, likely related to IV fluids with dextrose, resolved Coronary artery disease with previous stenting to LAD, 2012 Hypertension Hyperlipidemia Mild pulmonary hypertension Hypothyroidism History of CVA, 2016 History of gastric cancer History of nicotine dependence, patient is a former cigarette smoker PLAN: Continue postoperative management per Dr. Bailey Continue coumadin. Monitor INR. Monitor labs Monitor vital signs and address as appropriate Further recommendations pending patient's course Patient is cleared for discharge per Dr. Riley when cleared from admitting physician. Nurse practitioner note has been reviewed by physician. Signing provider agrees with the documented findings, assessment, and plan of care.
--- NOTE | 2018-02-04 15:12 | P.PN ---
Subjective Progress Note Date: 02/04/18 This is an 82-year-old gentleman who follows with Dr. Jaquan Mosquera in the office. He has a known history of coronary artery disease with prior stent placement, chronic persistent atrial fibrillation on Coumadin for anticoagulation, hyperlipidemia, diabetes, hypertension, hypothyroidism, he presented to the hospital with symptoms of abdominal discomfort with associated nausea. KUB x-ray performed on admission showed findings compatible with high grade small bowel obstruction. EKG on arrival shows atrial fibrillation with a rapid ventricular response. An echocardiogram with Doppler study was performed which revealed an ejection fraction of 65-70%, moderate mitral regurg, moderate tricuspid regurg. Chest x-ray shows evidence of mild congestive heart failure and probable small pleural effusions. Pulmonary congestion is increased as compared with prior exam. Blood pressure 142/70 with a heart rate of 118, 96% on 3 L of oxygen, temperature this morning 98.5. INR on admission 9.0, 1.4 this morning after receiving fresh frozen plasma and vitamin K. CBC is normal, sodium 138, potassium 4.9, BUN 31, creatinine 0.9. At the time of my examination this morning, patient does complain of mild abdominal discomfort, he does have an NG tube and Campbell catheter in place. He is currently on IV Cardizem drip at 10 mg per hour. 01/30/2018 Patient was seen and examined this morning, sitting up in the chair at bedside. He went into rapid atrial fibrillation through the night and was given some Lanoxin. Patient was also on a Cardizem drip, which was discontinued because the patient was hypotensive. This morning his blood pressure is in the 1 teens and heart rate remained in the 1 teens therefore we gave an additional dose of 25 mg of metoprolol and increased his dose to twice a day. Overall patient is feeling better today, continues to have NG tube in place. 01/31/2018 Patient seen and examined this morning, he's been up ambulating in the hallway a few times a Mosquera today. Hemodynamically stable his heart rate this morning was up in the low 100s to 1 teens. We will increase his dose of beta georgina to 3 times a day today. He did have a bowel movement this morning, and his NG tube has been removed. 02/01/2018 Patient was seen and examined this morning, he's been up ambulating in the hallway most of the morning. Hemodynamically stable with a heart rate this morning in the 80s. He has been resumed on his Coumadin for anticoagulation. 02/04/2018 Patient seen and examined this morning, doing well overall. I pressure this morning 168/78, heart rate in the 80s, we will add Norvasc to the patient's medication regime and from our perspective he may be able to be discharged home today. Objective - Vital Signs Vital signs: Vital Signs Temp 97.6 F 02/04/18 08:00 Pulse 85 02/04/18 12:00 Resp 17 02/04/18 12:00 BP 147/74 02/04/18 12:00 Pulse Ox 96 02/04/18 12:00 Intake & Output 02/03/18 02/04/18 02/04/18 18:59 06:59 18:59 Intake Total 360 160 290 Balance 360 160 290 Weight 73.4 kg 73.4 kg Intake: IV 160 0.9 160 Intake, IV Titration 50 Amount Piperacillin-Tazobactam 3 50 .375 gm In Dextrose/Water 1 50ml.bag @ 12.5 mls/hr IVPB Q8HR [facility] Rx#: [id number] Oral 360 240 Other: Voiding Method Toilet Toilet Urinal Urinal # Voids 2 1 1 # Bowel Movements 0 - Exam PHYSICAL EXAMINATION: HEENT: Head is atraumatic, normocephalic. Pupils equal, round. Neck is supple. There is no elevated jugular venous pressure. HEART EXAMINATION: Heart S1 and S2 irregularly irregular CHEST EXAMINATION: Lungs are clear with mild diminished air entry to the bases .No chest wall tenderness is noted on palpation or with deep breathing. ABDOMEN: Soft, nontender. Bowel sounds are heard. No organomegaly noted. EXTREMITIES: 2+ peripheral pulses with no evidence of peripheral edema and no calf tenderness noted. NEUROLOGIC patient is awake, alert and oriented -3. - Labs CBC & Chem 7: 02/04/18 05:45 02/04/18 05:45 Labs: Abnormal Lab Results - Last 24 Hours (Table) 02/03/18 02/03/18 02/04/18 Range/Units 16:52 21:22 05:45 WBC (3.8-10.6) k/uL Neutrophils # (1.3-7.7) k/uL PT (9.0-12.0) sec INR (<1.2) Chloride 97 L (98-107) mmol/L Glucose 141 H (74-99) mg/dL POC Glucose (mg/dL) 167 H 142 H (75-99) mg/dL Calcium 8.3 L (8.4-10.2) mg/dL 02/04/18 02/04/18 02/04/18 Range/Units 05:45 06:13 09:33 WBC 11.9 H (3.8-10.6) k/uL Neutrophils # 9.8 H (1.3-7.7) k/uL PT 19.2 H (9.0-12.0) sec INR 2.1 H (<1.2) Chloride (98-107) mmol/L Glucose (74-99) mg/dL POC Glucose (mg/dL) 132 H (75-99) mg/dL Calcium (8.4-10.2) mg/dL 02/04/18 Range/Units 11:58 WBC (3.8-10.6) k/uL Neutrophils # (1.3-7.7) k/uL PT (9.0-12.0) sec INR (<1.2) Chloride (98-107) mmol/L Glucose (74-99) mg/dL POC Glucose (mg/dL) 146 H (75-99) mg/dL Calcium (8.4-10.2) mg/dL Assessment and Plan Plan: Assessment and plan #1 small bowel obstruction, patient is scheduled for exploratory laparotomy with lysis of adhesions this afternoon #2 atrial fibrillation with rapid ventricular response, chronic persistent. #3 hypertension #4 diabetes #5 hyperlipidemia #6 coronary artery disease with prior LAD stenting in 2013 Plan From cardiology's perspective, we will add Norvasc to the patient's medication regime. He may be able to be discharged home once cleared by his primary. We' ll make a follow-up appointment in the office post discharge. DNP note has been reviewed, I agree with a documented findings and plan of care. Patient was seen and examined.
[2018-02-04] MEDS ORDERED: WARFARIN 7.5 MG TAB PO SCH (18:00)
--- NOTE | 2018-02-11 14:16 | P.PN ---
Progress Note - Text Progress Note Date: 02/11/18 This is an addendum to the progress note dictated. Patient has acute on chronic congestive heart failure with preserved left ventricular systolic function. DNP note has been reviewed, I agree with a documented findings and plan of care. Patient was seen and examined.
== END 2018-02-04 12:36 | disposition home or self-care (01) | DRG 335 ==
LOC: EC 06:07 → 5MS5E 09:17 → 6SEL 13:32
PROVIDERS: ADMIT Surgery; ATTEND Surgery
PROC: 0DNW0ZZ Release Peritoneum, Open Approach (ICD-10-PCS; principal; 2018-01-29 14:00)
DX: K56.51 Intestinal adhesions [bands], with partial obstruction (principal); I50.33 Acute on chronic diastolic (congestive) heart failure; J98.11 Atelectasis; N17.9 Acute kidney failure, unspecified; I69.954 Hemiplegia and hemiparesis following unspecified cerebrovascular disease affecting left non-dominant side; I95.9 Hypotension, unspecified; E03.9 Hypothyroidism, unspecified; E11.649 Type 2 diabetes mellitus with hypoglycemia without coma; E11.65 Type 2 diabetes mellitus with hyperglycemia; E78.5 Hyperlipidemia, unspecified; E86.1 Hypovolemia; E87.6 Hypokalemia; I08.1 Rheumatic disorders of both mitral and tricuspid valves; I11.0 Hypertensive heart disease with heart failure; I95.2 Hypotension due to drugs; I25.10 Atherosclerotic heart disease of native coronary artery without angina pectoris; I25.2 Old myocardial infarction; I27.20 Pulmonary hypertension, unspecified; I48.2 Chronic atrial fibrillation; R79.1 Abnormal coagulation profile; M19.90 Unspecified osteoarthritis, unspecified site; N42.9 Disorder of prostate, unspecified; T46.1X5A Adverse effect of calcium-channel blockers, initial encounter; T40.2X5A Adverse effect of other opioids, initial encounter; T50.995A Adverse effect of other drugs, medicaments and biological substances, initial encounter; T50.3X5A Adverse effect of electrolytic, caloric and water-balance agents, initial encounter; Z79.01 Long term (current) use of anticoagulants; Z79.4 Long term (current) use of insulin; Z79.82 Long term (current) use of aspirin; Z79.899 Other long term (current) drug therapy; Z79.890 Hormone replacement therapy; Z95.5 Presence of coronary angioplasty implant and graft; Z90.3 Acquired absence of stomach [part of]; Z90.81 Acquired absence of spleen; Z87.891 Personal history of nicotine dependence; Z85.028 Personal history of other malignant neoplasm of stomach; Z80.6 Family history of leukemia; Y92.239 Unspecified place in hospital as the place of occurrence of the external cause
CPT/HCPCS: 36415; 71045; 74018; 80048; 80053; 81001; 82150; 83036; 83605; 83690; 83735; 83880; 84132; 84484; 85025; 85610; 85730; 86850; 86900; 86901; 87086; 93005; 93306; 94640; 94760; 96361; 96365; 96366; 96367; 96375; 96376; 99285

== ENCOUNTER → 2018-03-03 | Outpatient (CLI) | payer MEDICARE ==
[2018-03-03 10:53] LABS: Blood Urea Nitrogen 18 mg/dL (9-20)
--- NOTE | 2018-03-03 15:13 | CT ---
EXAMINATION TYPE: CT ChestAbdPelvis w con DATE OF EXAM: 03/03/2018 COMPARISON: 08/05/2017 and 03/04/2017 HISTORY: 82-year-old male follow-up Malignant GI Stromal Tumor TECHNIQUE: Contiguous axial scanning of the chest, abdomen, and pelvis performed with IV Contrast, pa tient injected with 100 ml mL of Isovue 300. Delayed images through the kidneys were obtained. Vincent l/sagittal reconstructions performed. CT DLP: 1525 mGycm Automated exposure control for dose reduction was used. FINDINGS: Chest: Heart borderline enlarged without pericardial effusion. Extensive coronary vessel calcifications are present and remarkable for coronary artery disease. Mildly aneurysmal ascending aorta at 4.1 cm unchanged. Moderate atherosclerotic arch calcifications w ith conventional branching anatomy. Large caliber to the main right and left pulmonary arteries are 2.9 and 2.6 cm, respectively, suggest ing underlying pulmonary arterial hypertension. Mild bilateral gynecomastia. No thoracic lymphadenopathy by size criteria. Stable 4 mm nodule medial right mid lung axial image 19. Strandy bibasilar areas of atelectasis. Some nonspecific mild patchy groundglass anterior left upper lobe at the midlung level, axial images 29 through 31 suggest nonspecific infectious/inflammatory foci. Otherwise, no consolidation or pleura l effusion. ABDOMEN: Small hiatal hernia. Arterial phase imaging of the liver shows no gross abnormality. Gallbladder, adrenal glands, right kidney and pancreas show no gross abnormality. Stable exophytic 1.6 cm lesion posterior midpole left kidney is indeterminate. There is surgical material along the posterior gastric fundus with changes of splenectomy. As compare d to prior exams, there is focal posterior fundal wall thickening, refer to axial images 51 and 52. I n addition, there is some focal soft tissue thickening along the omentum left paramedian mid abdomen, axial image 73 and coronal image 13 which requires close attention on follow-up Scattered nonenlarged and mildly enlarged retroperitoneal lymph nodes measure up to 9 mm in the left para-aortic region, unchanged from the prior 2 exams. Moderate atherosclerotic calcifications throughout the abdominal aorta and iliac arteries. Normal caliber appendix. There is colonic diverticulosis in the lower descending and proximal sigmoid colon and also at the level of the cecum. Moderate stool burden without pericolonic inflammatory reese nge. Pelvis: Prominent urinary bladder distention up to 12.4 cm with mild circumferential wall thickening. Prostat omegaly at 6.0 cm. No abnormal fluid collection in the pelvis or any enlarging lymph nodes. Bones: Degenerative changes at the pubic symphysis, both hips, and SI joints. Degenerative dextroconvex curv ature lumbar spine. Degenerative disc disease and facet arthropathy throughout the lumbar spine and e ndplate spondylosis anteriorly within the mid thoracic spine. IMPRESSION: 1. 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 2. TWO AREAS ARE SUSPICIOUS AND WARRANT CLOSE FOLLOW-UP THEY MAY REPRESENT EARLY RECURRENCE/METAST ATIC DISEASE. FOCAL WALL THICKENING ALONG THE POSTERIOR GASTRIC FUNDUS IS NEW IS SOME FOCAL OMENTA L SOFT TISSUE THICKENING LEFT PARAMEDIAN MID ABDOMEN (AXIAL IMAGE 52 AND 73, RESPECTIVELY). 3. STABLE INDETERMINATE 1.6 CM LEFT RENAL LESION. 4. SOME NEW PATCHY GROUNDGLASS ANTERIOR LEFT MIDLUNG SUGGESTS NONSPECIFIC INFECTIOUS/INFLAMMATORY FOC I; CORRELATE FOR ANY ACUTE RESPIRATORY SYMPTOMS. 5. 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
== END | disposition home or self-care (01) ==
LOC: RADCTMAIN 10:06
PROVIDERS: ATTEND Internal Medicine Hematology & Oncology
DX: C49.A2 Gastrointestinal stromal tumor of stomach (principal); I25.10 Atherosclerotic heart disease of native coronary artery without angina pectoris; I10 Essential (primary) hypertension; K44.9 Diaphragmatic hernia without obstruction or gangrene; K57.30 Diverticulosis of large intestine without perforation or abscess without bleeding; N40.0 Benign prostatic hyperplasia without lower urinary tract symptoms; Z98.890 Other specified postprocedural states
CPT/HCPCS: 82565; 84520; 71260; 74177; 36415; Q9967

== ENCOUNTER → 2018-05-03 | Outpatient (CLI) | payer MEDICARE ==
--- NOTE | 2018-05-05 18:22 | PE ---
Nuclear medicine PET/CT HISTORY: Malignant gastrointestinal stromal tumor, subsequent Patient received 13.4 mCi F-18 FDG intravenously in delayed scanning was performed from the skull bas e to the mid thighs. Localization and attenuation correction CT was performed. Correlation to CT chest abdomen pelvis 03/03/2018 Neck and chest: There is no evident adenopathy present. Carotid artery calcifications are present. As cending aorta is aneurysmal. The heart is enlarged, biatrial enlargement is present. There are nuñez ry calcifications. No evident lung mass or suspicious hypermetabolic uptake. Abdomen pelvis: Postop ages are noted to the stomach. No retroperitoneal adenopathy. No evident liver mass or suspicious hypermetabolic uptake. Spleen is absent. There is some bowel wall thickening. Div erticular change also noted within the sigmoid colon. Uptake within the bowel felt likely to be physi ologic. The urinary bladder shows a thickened wall. Prostate is enlarged. No evident adenopathy. Osseous structures: Increased uptake present within the right shoulder may be due to rotator cuff dis ease. Uptake within multiple vertebral bodies is felt likely to be physiologic. Uptake at the facet a t C3 on the left is likely due to arthropathy. IMPRESSION: No suspicious hypermetabolic uptake with additional findings above. Thoracic aortic aneur ysm. Coronary disease and cardiomegaly. Nonspecific bowel wall thickening with associated hypermetabo lic uptake. Probable chronic urinary bladder outlet obstruction.
== END | disposition home or self-care (01) ==
LOC: RADPETMAIN 08:20
PROVIDERS: ATTEND Internal Medicine Hematology & Oncology
DX: I71.2 Thoracic aortic aneurysm, without rupture (principal); I25.10 Atherosclerotic heart disease of native coronary artery without angina pectoris; R93.5 Abnormal findings on diagnostic imaging of other abdominal regions, including retroperitoneum; C49.A2 Gastrointestinal stromal tumor of stomach
CPT/HCPCS: 78815; A9552

== ENCOUNTER → 2018-12-30 | Outpatient (CLI) | payer MEDICARE ==
--- NOTE | 2018-12-30 14:05 | CT ---
EXAMINATION TYPE: CT ChestAbdPelvis w con DATE OF EXAM: 12/30/2018 COMPARISON: PET/CT 05/03/[address] 03/03/2018 HISTORY: 83-year-old male follow-up malignant gastrointestinal stromal tumor TECHNIQUE: Contiguous axial scanning of the chest, abdomen, and pelvis performed with IV Contrast, pa tient injected with 100 mL of Isovue 300. Delayed images through the kidneys were obtained. Coronal/s agittal reconstructions performed. CT DLP: 835.7 mGycm Automated exposure control for dose reduction was used. FINDINGS: Chest: Heart upper limits of normal in size without pericardial effusion. Extensive coronary vessel calcific ations are present. Ascending aorta aneurysmal at 4.2 cm. Moderate atherosclerotic arch calcifications with conventional arch vessel branching anatomy. Redemonstrated are large caliber to the main right and left pulmonary arteries measuring up to 2.7 cm . No thoracic lymphadenopathy by CT size criteria. Lungs show no consolidation or pleural effusion. Tiny 3 mm anterior right mid to lower lung pulmonary nodule appears to have been present in retrospect. No consolidation or pleural effusion. ABDOMEN: Tiny hiatal hernia. Calcified granuloma posteromedial right liver lobe. No suspicious liver lesion seen. No biliary ducta l dilatation. Portal venous system is patent. Gallbladder, adrenal glands, right kidney, pancreas appear within normal limits. Patient status post splenectomy and resection changes along the posterior gastric fundus. The previou s wall thickening seen on 03/03/2018 has decreased. 1.3 cm exophytic cortical lesion posterior left kidney is smaller from 2018 suggesting a benign etiol ogy. No dilated small bowel, free fluid, or free air. There is some mesenteric poorly defined nodularity measuring 1.6 cm, refer to axial image 94, not see n previously. A few scattered borderline sized mesenteric lymph nodes are also present, for example, measuring 8 mm a maximum of 73. No dilated small bowel, free fluid, or free air. Normal appendix. Mild stool burden. Sigmoid diverticulosis without pericolic inflammatory change. Moderate prostatic calcifications are at the abdominal aorta and iliac arteries. PELVIS: Bladder urine distended with mild circumferential wall thickening. Unchanged prostatomegaly (6.3 cm w adriane). No abnormal fluid collection in the pelvis prominent external iliac chain lymph nodes measuring up to 8 mm are unchanged. No abnormal fluid collection the pelvis. BONES: Osteitis pubis. Degenerative changes at the hips, SI joints and degenerative disc disease mid to lowe r lumbar spine as well as the mid thoracic spine. IMPRESSION: 1. POSTSURGICAL CHANGES ALONG THE POSTERIOR GASTRIC FUNDUS ALONG WITH SPLENECTOMY. NO EVIDENCE FOR LO BEN RECURRENCE. 2. HOWEVER, THERE IS SOME POORLY DEFINED NODULARITY IN THE MID MESENTERY NOT CLEARLY SEEN PREVIOUSLY MEASURING 1.6 CM (AXIAL IMAGE 94). SHORT INTERVAL FOLLOW-UP RECOMMENDED WITH ATTENTION HERE TO EXCLUD E METASTATIC DISEASE TO THE PERITONEUM. 3. 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
== END ==
LOC: RADCTMAIN 09:52
PROVIDERS: ATTEND Internal Medicine Hematology & Oncology
DX: K66.8 Other specified disorders of peritoneum (principal); C49.A2 Gastrointestinal stromal tumor of stomach; Z90.81 Acquired absence of spleen
CPT/HCPCS: 82565; 84520; 71260; 74177; 36415; Q9967

== ENCOUNTER → 2019-05-05 | Outpatient (CLI) | payer MEDICARE ==
--- NOTE | 2019-05-05 15:52 | CT ---
EXAMINATION TYPE: CT abdomen pelvis w con DATE OF EXAM: 05/05/2019 COMPARISON: CT chest abdomen and pelvis December 30, 2018 and older CTs PET CT May 03, 2018 HISTORY: f/u stomach ca CT DLP: 765.7 mGycm, Automated Exposure Control for Dose Reduction was Utilized. CONTRAST: CT scan of the abdomen and pelvis is performed with oral and with IV Contrast, patient injected with 100 mL of Isovue 300. FINDINGS: LUNG BASES: Cardiomegaly with moderate to severe right greater than left biatrial dilatation is redem onstrated. LIVER/GB: Stable calcified granuloma right liver axial image 14. PANCREAS: No significant abnormality is seen. SPLEEN: Spleen is surgically absent. ADRENALS: No significant abnormality is seen. KIDNEYS: Subcentimeter exophytic lesion posterior lateral left kidney lower pole level axial image 36 series 9 is presumed benign and stable. BOWEL: Oral contrast does not reach colonic level making evaluation distal bowel slightly suboptimal. No suspicious small or large bowel dilatation. Some redundancy of sigmoid colon with diverticulosis. No CT evidence for acute diverticulitis. Clips posterior to gastric fundus are redemonstrated PROSTATE/SEMINAL VESICLES: Enlarged prostate gland consistent with BPH. Mild bladder wall thickening consistent with outlet obstruction from BPH LYMPH NODES: No new greater than 1cm abdominal or pelvic lymph nodes are appreciated. Some swirling of mesentery with prominent but subcentimeter lymph nodes is redemonstrated. OSSEOUS STRUCTURES: Dextroconvex scoliosis centered at L3 level. Straightening of lumbar spine on sag ittal images. Moderate multilevel disc space narrowing with lower lumbar levels with moderate spurrin g L2-L3 level. OTHER: No significant additional abnormality is seen. IMPRESSION: No suspicious new mass or adenopathy.
== END | disposition home or self-care (01) ==
LOC: RADCTMAIN 13:44
PROVIDERS: ATTEND Internal Medicine Hematology & Oncology
DX: Z03.89 Encounter for observation for other suspected diseases and conditions ruled out (principal)
CPT/HCPCS: 82565; 84520; 74177; 36415; Q9967

== ENCOUNTER → 2020-02-19 | Outpatient (CLI) | payer MEDICARE, OTHER ==
[2020-02-19 09:38] LABS: African American GFR (CKD) >90 (>60 ml/min/1.73 sqM); Blood Urea Nitrogen 22 mg/dL (9-20); Non-African American GFR(CKD) 82 (>60 ml/min/1.73 sqM)
--- NOTE | 2020-02-19 10:57 | CT ---
EXAMINATION TYPE: CT ChestAbdPelvis w con DATE OF EXAM: 02/19/2020 COMPARISON: 05/05/2019, 12/30/2018 HISTORY: Malignant neoplasm gastrointestinal stromal tumor. CT DLP: 785.3 mGycm Automated exposure control for dose reduction was used. CONTRAST: CT scan of the chest, abdomen and pelvis is performed with Oral Contrast and with IV Contrast, patien t injected with 100 mL of Isovue M300. FINDINGS: LUNGS: The lungs are grossly clear, there is no concerning parenchymal mass or nodule identified. T here is no pleural effusion or pneumothorax seen. The tracheobronchial tree is patent. MEDIASTINUM: There are no greater than 1 cm hilar or mediastinal lymph nodes. Mild aneurysmal dilatio n of the ascending aorta measuring 4.2 cm. Pulmonary arteries are prominent measuring approximately 2 .8 cm suggestive of pulmonary arterial hypertension. Heart is enlarged and there is dense coronary ar jarvis calcification correlate clinically.. OTHER: Hypertrophic and degenerative change of the vertebral column LIVER/GB: No significant abnormality is appreciated. PANCREAS: No significant abnormality is seen. SPLEEN: Post splenectomy. ADRENALS: No significant abnormality is seen. KIDNEYS: Subcentimeter density to small to characterize extending off the posterior margin of the lef t kidney is stable. Parapelvic renal cysts are incidentally noted. BOWEL: Nonspecific bowel gas pattern. Changes of diverticulosis noted. LYMPH NODES: No greater than 1 cm abdominal or pelvic lymph nodes are appreciated. OSSEOUS STRUCTURES: Hypertrophic and degenerative change of the spine. Arthropathy of the hips. Schmo rl's nodes at the L2-3 level. OTHER: Prostate is markedly enlarged. Correlate with PSA. IMPRESSION: 1. No diagnostic evidence of metastases. 2. Cardiomegaly with dense coronary artery calcification correlate clinically. 3. Severe prostate enlargement. Correlate with PSA.
== END | disposition home or self-care (01) ==
LOC: RADCTMAIN 09:00
PROVIDERS: ATTEND Internal Medicine Hematology & Oncology
DX: Z03.89 Encounter for observation for other suspected diseases and conditions ruled out (principal); C49.A2 Gastrointestinal stromal tumor of stomach; I51.7 Cardiomegaly; I25.10 Atherosclerotic heart disease of native coronary artery without angina pectoris; N40.0 Benign prostatic hyperplasia without lower urinary tract symptoms
CPT/HCPCS: 82565; 84520; 71260; 74177; 36415; Q9967 ×2

== ENCOUNTER 2022-04-03 08:45 | Inpatient (IN) | payer MEDICARE ==
[2022-04-03 08:58] LABS: Glucose,Whole Blood 150 mg/dL (70-110)
[2022-04-03] MEDS ORDERED: SODIUM CHLORIDE 0.9% 1,000 ML IV ONE (09:15)
[2022-04-03 09:33] LABS: Basophils # (A) 0.1 k/uL (0-0.2); Basophils % (A) 1 %; Eosinophils # (A) 0.2 k/uL (0-0.7); Eosinophils % (A) 3 %; HCT 48.8 % (39.0-53.0); Lymphocytes # (A) 2.1 k/uL (1.0-4.8); Lymphocytes % (A) 27 %; MCH 32.5 pg (25.0-35.0); MCHC 32.8 g/dL (31.0-37.0); Mean Platelet Volume 10.1; Monocytes # (A) 0.8 k/uL (0-1.0); Monocytes % (A) 11 %; Neutrophils # (A) 4.3 k/uL (1.3-7.7); Neutrophils % (A) 56 %; Platelet Count 147 k/uL (150-450); RBC 4.93 m/uL (4.30-5.90); RDW 13.3 % (11.5-15.5); WBC 7.7 k/uL (3.8-10.6)
--- NOTE | 2022-04-03 09:43 | XR ---
EXAMINATION TYPE: XR chest 2V DATE OF EXAM: 04/03/2022 COMPARISON: 02/03/2018 TECHNIQUE: PA and lateral views submitted. HISTORY: Altered mental status FINDINGS: The lungs are clear and there is no pneumothorax, pleural effusion, or focal pneumonia. Diffuse oste openia. Atherosclerotic change aorta. Limited inspiration. Coarsened interstitium. Subsegmental martin es right lung base. IMPRESSION: 1. Basilar atelectasis favored over pneumonia. Stable interstitial may be on the basis of mild chroni c interstitial lung disease correlate clinically.
--- NOTE | 2022-04-03 09:44 | CT ---
EXAMINATION TYPE: CT brain wo con CT DLP: 1168.4 mGycm, Automated exposure control for dose reduction was used. DATE OF EXAM: 04/03/2022 9:30 AM COMPARISON: Prior CT Brain from 08/08/2016 . CLINICAL INDICATION:Male, 86 years old with history of Altered mental status TECHNIQUE: Brain: Multiple axial CT images of the brain were obtained without IV contrast. Coronal and sagittal reformats reviewed. FINDINGS: Brain: Extra-axial spaces: No abnormal extra-axial fluid collections. Ventricular system: Within normal limits Cerebral parenchyma: No acute intraparenchymal hemorrhage or mass effect. The king-white junction is well differentiated. Confluent hypoattenuating areas are seen within the periventricular and subcort ical white matter. Cerebellum: Unremarkable. Mass effect: No evidence of midline shift. Intracranial vasculature: Atherosclerotic calcifications of the intracranial vessels. Soft tissues: Normal. Calvarium/osseous structures: No depressed skull fracture. Paranasal sinuses and mastoid air cells: Mild scattered paranasal sinus disease. Visualized orbits: Bilateral aphakia IMPRESSION: 1. No acute intracranial process. 2. Nonspecific white matter changes, likely secondary to chronic small vessel ischemic disease.
[2022-04-03] MEDS ORDERED: SODIUM CHLORIDE 0.9% 1,000 ML IV STA (10:01)
[2022-04-03] MEDS ORDERED: SODIUM CHLORIDE 0.9% 500 ML 500 ML IV STA (10:01)
--- NOTE | 2022-04-03 10:01 | ED ---
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 He went to bed around 10 PM last evening was his usual self at that time. He noticed no focal deficits she seemed confused and unable answer questions well. No trauma reported. Patient is on Coumadin MD Complaint: altered mental status, confusion - Related Data Home Medications Medication Instructions Recorded Confirmed Insulin Detemir (Levemir) [Levemir] 30 unit SQ QAM 07/19/16 04/03/22 Warfarin [Coumadin] 7.5 mg PO W/SUPPER 07/19/16 04/03/22 lisinopriL [Zestril] 20 mg PO DAILY 07/19/16 04/03/22 Atorvastatin [Lipitor] 20 mg PO HS 04/03/22 04/03/22 Insulin Aspart [NovoLOG Flexpen] See Protocol SQ ACHS 04/03/22 04/03/22 metFORMIN HCL 1,000 mg PO BID 04/03/22 04/03/22 Previous Rx's Medication Instructions Recorded Metoprolol Tartrate [Lopressor] 25 mg PO BID #60 tab 08/01/16 Levothyroxine Sodium [Synthroid] 75 mcg PO DAILY@0630 #30 tab 03/15/17 amLODIPine [Norvasc] 5 mg PO DAILY #30 tab 02/04/18 Allergies Allergy/AdvReac Type Severity Reaction Status Date / Time No Known Allergies Allergy Verified 04/03/22 10:53 Review of Systems ROS Statement: Those systems with pertinent positive or pertinent negative responses have been documented in the HPI. ROS Other: All systems not noted in ROS Statement are negative. Past Medical History Past Medical History: Atrial Fibrillation, Coronary Artery Disease (CAD), Cancer, CVA/TIA, Diabetes Mellitus, GI Bleed, Hyperlipidemia, Hypertension, Myocardial Infarction (ID), Osteoarthritis (OA), Prostate Disorder, Thyroid Disorder Additional Past Medical History / Comment(s): SOB w/activity, hx gastric cancer, had stroke 2015-some minimal left sided weakness Last Myocardial Infarction Date:: unknown History of Any Multi-Drug Resistant Organisms: None Reported Past Surgical History: Heart Catheterization With Stent, Hernia Repair, Orthopedic Surgery Additional Past Surgical History / Comment(s): 02/23/13 cardiac cath with stent, bilateral inguinal hernia repair, L middle finger colonoscopy, EGD, 07-27-16 exp laparotomy splenectomy, partial gastrectomy Past Anesthesia/Blood Transfusion Reactions: No Reported Reaction Additional Past Anesthesia/Blood Transfusion Reaction / Comment(s): blood transfusion 07/20/16- no reaction Date of Last Stent Placement:: 02/23/13 Past Psychological History: No Psychological Hx Reported Smoking Status: Never smoker Past Alcohol Use History: Daily Past Drug Use History: None Reported - Past Family History Father Family Medical History: Cancer Additional Family Medical History / Comment(s): Father of leukemia at the age of 68yrs. pts mom had ra and lived to age 93 Mother Family Medical History: No Reported History Additional Family Medical History / Comment(s): Mother was healthy and at the age of 94 yrs. General Exam - General Exam Comments Initial Comments: This is a well-developed well-nourished awake alert though confused male Limitations: no limitations General appearance: alert, in no apparent distress Head exam: Present: atraumatic, normocephalic, normal inspection Eye exam: Present: normal appearance, PERRL, EOMI. Absent: scleral icterus, conjunctival injection, periorbital swelling ENT exam: Present: mucous membranes dry Neck exam: Present: normal inspection, full ROM, other (No stridor JVD or bruits). Absent: tenderness, meningismus, lymphadenopathy Respiratory exam: Present: normal lung sounds bilaterally. Absent: respiratory distress, wheezes, rales, rhonchi, stridor Cardiovascular Exam: Present: irregular rhythm. Absent: systolic murmur, diastolic murmur, rubs, gallop, clicks GI/Abdominal exam: Present: soft, normal bowel sounds. Absent: distended, tenderness, guarding, rebound, rigid Extremities exam: Present: normal inspection, full ROM, normal capillary refill. Absent: tenderness, pedal edema, joint swelling, calf tenderness Back exam: Present: normal inspection Neurological exam: Present: alert, altered, CN II-XII intact. Absent: motor sensory deficit Psychiatric exam: Present: normal affect, normal mood Skin exam: Present: warm, dry, intact, normal color. Absent: rash Course Vital Signs 04/03/22 04/03/22 08:52 09:26 Temperature 98.2 F Pulse Rate 101 H 84 Respiratory 18 16 Rate Blood Pressure 184/92 183/96 O2 Sat by Pulse 98 97 Oximetry Medical Decision Making - Medical Decision Making I did reevaluate patient several occasions he is responding more he still having some right visual disturbance which she states he could not tell us earlier. Family member state he is more like his usual self. The presentation appears be consistent with a TIA I did discuss the case with Dr. Riley patient will be admitted with consultation by Dr. Lagunas - Lab Data Result diagrams: 04/03/22 09:20 04/03/22 10:00 Lab Results 04/03/22 04/03/22 04/03/22 Range/Units 08:56 09:20 10:00 WBC 7.7 (3.8-10.6) k/uL RBC 4.93 (4.30-5.90) m/uL Hgb 16.0 (13.0-17.5) gm/dL Hct 48.8 (39.0-53.0) % MCV 99.0 (80.0-100.0) fL MCH 32.5 (25.0-35.0) pg MCHC 32.8 (31.0-37.0) g/dL RDW 13.3 (11.5-15.5) % Plt Count 147 L (150-450) k/uL MPV 10.1 Neutrophils % 56 % Lymphocytes % 27 % Monocytes % 11 % Eosinophils % 3 % Basophils % 1 % Neutrophils # 4.3 (1.3-7.7) k/uL Lymphocytes # 2.1 (1.0-4.8) k/uL Monocytes # 0.8 (0-1.0) k/uL Eosinophils # 0.2 (0-0.7) k/uL Basophils # 0.1 (0-0.2) k/uL PT (9.0-12.0) sec INR (<1.2) APTT (22.0-30.0) sec Sodium (137-145) mmol/L Potassium (3.5-5.1) mmol/L Chloride (98-107) mmol/L Carbon Dioxide (22-30) mmol/L Anion Gap mmol/L BUN (9-20) mg/dL Creatinine (0.66-1.25) mg/dL Est GFR (CKD-EPI)AfAm (>60 ml/min/1.73 sqM) Est GFR (CKD-EPI)NonAf (>60 ml/min/1.73 sqM) Glucose (74-99) mg/dL POC Glucose (mg/dL) 150 H (70-110) mg/dL POC Glu Epic Manager ID Hang Mejía Plasma Lactic Acid Marvin (0.7-2.0) mmol/L Calcium (8.4-10.2) mg/dL Magnesium (1.6-2.3) mg/dL Total Bilirubin (0.2-1.3) mg/dL AST (17-59) U/L ALT (4-49) U/L Alkaline Phosphatase (38-126) U/L Ammonia (<30) umol/L Troponin I (0.000-0.034) ng/mL Total Protein (6.3-8.2) g/dL Albumin (3.5-5.0) g/dL Urine Color Light Yellow Urine Appearance Clear (Clear) Urine pH 7.0 (5.0-8.0) Ur Specific [place] 1.009 (1.001-1.035) Urine Protein Negative (Negative) Urine Glucose (UA) Negative (Negative) Urine Ketones 1+ H (Negative) Urine Blood Negative (Negative) Urine Nitrite Negative (Negative) Urine Bilirubin Negative (Negative) Urine Urobilinogen <2.0 (<2.0) mg/dL Ur Leukocyte Esterase Negative (Negative) Urine Opiates Screen Not Detected (NotDetected) Ur Oxycodone Screen Not Detected (NotDetected) Urine Methadone Screen Not Detected (NotDetected) Ur Propoxyphene Screen Not Detected (NotDetected) Ur Barbiturates Screen Not Detected (NotDetected) U Tricyclic Antidepress Not Detected (NotDetected) Ur Phencyclidine Scrn Not Detected (NotDetected) Ur Amphetamines Screen Not Detected (NotDetected) U Methamphetamines Scrn Not Detected (NotDetected) U Benzodiazepines Scrn Not Detected (NotDetected) Urine Cocaine Screen Not Detected (NotDetected) U Marijuana (THC) Screen Not Detected (NotDetected) Serum Alcohol mg/dL 04/03/22 04/03/22 04/03/22 Range/Units 10:00 10:00 10:00 WBC (3.8-10.6) k/uL RBC (4.30-5.90) m/uL Hgb (13.0-17.5) gm/dL Hct (39.0-53.0) % MCV (80.0-100.0) fL MCH (25.0-35.0) pg MCHC (31.0-37.0) g/dL RDW (11.5-15.5) % Plt Count (150-450) k/uL MPV Neutrophils % % Lymphocytes % % Monocytes % % Eosinophils % % Basophils % % Neutrophils # (1.3-7.7) k/uL Lymphocytes # (1.0-4.8) k/uL Monocytes # (0-1.0) k/uL Eosinophils # (0-0.7) k/uL Basophils # (0-0.2) k/uL PT 28.8 H (9.0-12.0) sec INR 2.9 H (<1.2) APTT 35.8 H (22.0-30.0) sec Sodium 138 (137-145) mmol/L Potassium 4.2 (3.5-5.1) mmol/L Chloride 103 (98-107) mmol/L Carbon Dioxide 21 L (22-30) mmol/L Anion Gap 14 mmol/L BUN 20 (9-20) mg/dL Creatinine 0.74 (0.66-1.25) mg/dL Est GFR (CKD-EPI)AfAm >90 (>60 ml/min/1.73 sqM) Est GFR (CKD-EPI)NonAf 84 (>60 ml/min/1.73 sqM) Glucose 159 H (74-99) mg/dL POC Glucose (mg/dL) (70-110) mg/dL POC Glu Epic Manager ID Plasma Lactic Acid Marvin 1.3 (0.7-2.0) mmol/L Calcium 9.2 (8.4-10.2) mg/dL Magnesium 1.6 (1.6-2.3) mg/dL Total Bilirubin 1.7 H (0.2-1.3) mg/dL AST 34 (17-59) U/L ALT 32 (4-49) U/L Alkaline Phosphatase 141 H (38-126) U/L Ammonia <9 (<30) umol/L Troponin I (0.000-0.034) ng/mL Total Protein 7.6 (6.3-8.2) g/dL Albumin 4.6 (3.5-5.0) g/dL Urine Color Urine Appearance (Clear) Urine pH (5.0-8.0) Ur Specific [place] (1.001-1.035) Urine Protein (Negative) Urine Glucose (UA) (Negative) Urine Ketones (Negative) Urine Blood (Negative) Urine Nitrite (Negative) Urine Bilirubin (Negative) Urine Urobilinogen (<2.0) mg/dL Ur Leukocyte Esterase (Negative) Urine Opiates Screen (NotDetected) Ur Oxycodone Screen (NotDetected) Urine Methadone Screen (NotDetected) Ur Propoxyphene Screen (NotDetected) Ur Barbiturates Screen (NotDetected) U Tricyclic Antidepress (NotDetected) Ur Phencyclidine Scrn (NotDetected) Ur Amphetamines Screen (NotDetected) U Methamphetamines Scrn (NotDetected) U Benzodiazepines Scrn (NotDetected) Urine Cocaine Screen (NotDetected) U Marijuana (THC) Screen (NotDetected) Serum Alcohol <10 mg/dL 04/03/22 Range/Units 10:00 WBC (3.8-10.6) k/uL RBC (4.30-5.90) m/uL Hgb (13.0-17.5) gm/dL Hct (39.0-53.0) % MCV (80.0-100.0) fL MCH (25.0-35.0) pg MCHC (31.0-37.0) g/dL RDW (11.5-15.5) % Plt Count (150-450) k/uL MPV Neutrophils % % Lymphocytes % % Monocytes % % Eosinophils % % Basophils % % Neutrophils # (1.3-7.7) k/uL Lymphocytes # (1.0-4.8) k/uL Monocytes # (0-1.0) k/uL Eosinophils # (0-0.7) k/uL Basophils # (0-0.2) k/uL PT (9.0-12.0) sec INR (<1.2) APTT (22.0-30.0) sec Sodium (137-145) mmol/L Potassium (3.5-5.1) mmol/L Chloride (98-107) mmol/L Carbon Dioxide (22-30) mmol/L Anion Gap mmol/L BUN (9-20) mg/dL Creatinine (0.66-1.25) mg/dL Est GFR (CKD-EPI)AfAm (>60 ml/min/1.73 sqM) Est GFR (CKD-EPI)NonAf (>60 ml/min/1.73 sqM) Glucose (74-99) mg/dL POC Glucose (mg/dL) (70-110) mg/dL POC Glu Epic Manager ID Plasma Lactic Acid Marvin (0.7-2.0) mmol/L Calcium (8.4-10.2) mg/dL Magnesium (1.6-2.3) mg/dL Total Bilirubin (0.2-1.3) mg/dL AST (17-59) U/L ALT (4-49) U/L Alkaline Phosphatase (38-126) U/L Ammonia (<30) umol/L Troponin I <0.012 (0.000-0.034) ng/mL Total Protein (6.3-8.2) g/dL Albumin (3.5-5.0) g/dL Urine Color Urine Appearance (Clear) Urine pH (5.0-8.0) Ur Specific [place] (1.001-1.035) Urine Protein (Negative) Urine Glucose (UA) (Negative) Urine Ketones (Negative) Urine Blood (Negative) Urine Nitrite (Negative) Urine Bilirubin (Negative) Urine Urobilinogen (<2.0) mg/dL Ur Leukocyte Esterase (Negative) Urine Opiates Screen (NotDetected) Ur Oxycodone Screen (NotDetected) Urine Methadone Screen (NotDetected) Ur Propoxyphene Screen (NotDetected) Ur Barbiturates Screen (NotDetected) U Tricyclic Antidepress (NotDetected) Ur Phencyclidine Scrn (NotDetected) Ur Amphetamines Screen (NotDetected) U Methamphetamines Scrn (NotDetected) U Benzodiazepines Scrn (NotDetected) Urine Cocaine Screen (NotDetected) U Marijuana (THC) Screen (NotDetected) Serum Alcohol mg/dL - EKG Data -: EKG Interpreted by Me EKG Comments: Atrial fibrillation rate 92 QRS 96 QT since QTC 358/4 weight low-voltage QRS - Radiology Data Radiology results: report reviewed (Image reviewed acute findings.), image reviewed Disposition Clinical Impression: Altered mental status, TIA (transient ischemic attack), Chronic atrial fibrillation, Dehydration Disposition: ADMITTED IP TO THIS [facility] Condition: Fair Referrals: Carlos Riley DO [Primary Care Provider] - 1-2 days Decision Date: 04/03/22 Decision Time: 12:00
[2022-04-03 10:12] LABS: Appearance,Urine Clear (Clear); Bilirubin,Urine Negative (Negative); Blood,Urine Negative (Negative); Color,Urine Light Yellow; Glucose,Urine (UA) Negative (Negative); Ketones,Urine 1+ (Negative); Leukocyte Esterase,Urine Negative (Negative); Nitrite,Urine Negative (Negative); Protein,Urine Negative (Negative); Specific Gravity,Urine 1.009 (1.001-1.035); Urobilinogen,Urine <2.0 mg/dL (<2.0)
[2022-04-03 10:25] LABS: INR 2.9 (<1.2); Partial Thromboplastin Time 35.8 sec (22.0-30.0); Prothrombin Time 28.8 sec (9.0-12.0)
[2022-04-03 10:31] LABS: ALT 32 U/L (4-49); AST 34 U/L (17-59); African American GFR (CKD) >90 (>60 ml/min/1.73 sqM); Albumin 4.6 g/dL (3.5-5.0); Alcohol <10 mg/dL; Alkaline Phosphatase 141 U/L (38-126); Anion Gap 14 mmol/L; Blood Urea Nitrogen 20 mg/dL (9-20); Calcium 9.2 mg/dL (8.4-10.2); Carbon Dioxide 21 mmol/L (22-30); Chloride 103 mmol/L (98-107); Glucose 159 mg/dL (74-99); Magnesium 1.6 mg/dL (1.6-2.3); Non-African American GFR(CKD) 84 (>60 ml/min/1.73 sqM); Potassium 4.2 mmol/L (3.5-5.1); Sodium 138 mmol/L (137-145); Total Bilirubin 1.7 mg/dL (0.2-1.3); Total Protein 7.6 g/dL (6.3-8.2)
[2022-04-03 10:37] LABS: Lactic Acid, Venous 1.3 mmol/L (0.7-2.0)
[2022-04-03 10:38] LABS: Amphetamine Screen,Urine Not Detected (NotDetected); Barbiturate Screen,Urine Not Detected (NotDetected); Benzodiazepines Screen,Urine Not Detected (NotDetected); Cocaine Screen,Urine Not Detected (NotDetected); Methadone Screen, Urine Not Detected (NotDetected); Opiate Screen,Urine Not Detected (NotDetected); Oxycodone Screen, Urine Not Detected (NotDetected); Phencyclidine Screen,Urine Not Detected (NotDetected); Tricyclic Antidepressant,Urine Not Detected (NotDetected); Urn Cannabinoid Scrn Not Detected (NotDetected)
[2022-04-03] MEDS ORDERED: ASPIRIN 81 MG PO STA (14:35)
[2022-04-03 15:33] LABS: Glucose,Whole Blood 215 mg/dL (70-110)
--- NOTE | 2022-04-03 16:08 | US ---
EXAMINATION TYPE: US carotid duplex BILAT DATE OF EXAM: 04/03/2022 COMPARISON: US 07/2016 CLINICAL HISTORY: CVA. CVA , Confusion EXAM MEASUREMENTS: RIGHT: Peak Systolic Velocity (PSV) cm/sec ----- Right CCA: 60.9 ----- Right ICA: 82.2 ----- Right ECA: 110.8 ICA/CCA ratio: 1.3 RIGHT: End Diastole cm/sec ----- Right CCA: 7.1 ----- Right ICA: 17.6 ----- Right ECA: 4.7 LEFT: Peak Systolic Velocity (PSV) cm/sec ----- Left CCA: 88.7 ----- Left ICA: 85.3 ----- Left ECA: 96.8 ICA/CCA ratio: 0.6. LEFT: End Diastole cm/sec ----- Left CCA: 7.9 ----- Left ICA: 17.1 ----- Left ECA: 4.7 VERTEBRALS (direction of flow): Right Vertebral: Antegrade Left Vertebral: Antegrade Rhythm: Normal Plaque noted throughout with wall thickening. Elevated flow seen in left CCA IMPRESSION: 1. Atherosclerotic plaque with no significant hemodynamic stenosis. Criteria for Assigning % of Stenosis / Diameter reduction (Estimation based on the indirect measurements of the internal carotid artery velocities (ICA PSV). 1. Normal (no stenosis)=ICA PSV < 125 cm/s: ratio < 2.0: ICA EDV<40 cm/s. 2. Less than 50% stenosis=ICA PSV < 125 cm/s: ratio < 2.0: ICA EDV<40 cm/s. 3. 50 to 69% stenosis=ICA PSV of 125 to 230 cm/s: ration 2.0 ? 4.0: ICA EDV 40-100 cm/s. 4. Greater than 70% stenosis to near occlusion= ICA PSV > 230 cm/s: ratio > 4.0: ICA EDV > 100 cm/s. 5. Near occlusion= ICA PSV velocities may be low or undetectable: variable ratio and ICA EDV. 6. Total occlusion=unable to detect flow.
[2022-04-03 16:53] LABS: Glucose,Whole Blood 174 mg/dL (70-110)
[2022-04-03] MEDS ORDERED: WARFARIN 7.5 MG TAB PO SCH (17:30)
[2022-04-03] MEDS ORDERED: metFORMIN 500 MG TAB PO SCH (17:30)
[2022-04-03 20:13] LABS: Glucose,Whole Blood 306 mg/dL (70-110)
[2022-04-03] MEDS: METOPROLOL TARTRATE 25 MG TAB PO SCH (20:21)
[2022-04-03] MEDS: ATORVASTATIN 20 MG TAB PO SCH (20:21)
[2022-04-03] MEDS: INSULIN ASPART (NovoLOG) 100 UNIT/ML VIAL SQ SCH (21:28)
[2022-04-04 06:05] LABS: Glucose,Whole Blood 330 mg/dL (70-110)
[2022-04-04] MEDS: INSULIN ASPART (NovoLOG) 100 UNIT/ML VIAL SQ SCH ×4 (06:17→20:43)
[2022-04-04] MEDS: LEVOTHYROXINE 75 MCG TAB PO SCH (06:18)
[2022-04-04] MEDS: metFORMIN 500 MG TAB PO SCH ×2 (06:18→17:36)
[2022-04-04] MEDS ORDERED: INSULIN ASPART (NovoLOG) 100 UNIT/ML VIAL SQ SCH ×2 (07:30→17:30)
--- NOTE | 2022-04-04 07:57 | P.CNNES ---
History of Present Illness Consult date: 04/03/22 Requesting physician: Raj Cool Reason for Consult: TIA History of Present Illness: Patient is a 86-year-old right-handed male, with history of atrial fibrillation, on anticoagulation with Coumadin, diabetes, came to the hospital today at 8:45 AM for strokelike symptoms. Patient not able to provide history because of expressive aphasia. Patient's and daughters were present, who provided with a history. Apparently he went to bed last night at 10 PM in usual state of health. When he woke up at 7 AM, he was very confused, could not respond he could still walk and move around without any difficulty. He just kept on saying "I don't understand you", or he would say "I don't know what you are saying". There was no drooling, facial droop or any focal weakness observed. Vital signs on arrival blood pressure 184/92, pulse rate 101, temperature 98.2. Blood test shows normal CBC. INR is 2.9, electrolytes and renal functions are normal. Hepatic panel normal. UA negative, urine drug screen negative, blood alcohol level negative. Patient's last hemoglobin A1c 6.1 on 08/28/2021. Computed tomography scan of head showed no acute intracranial process. Nonspecific white matter changes. This is likely secondary to chronic small vessel ischemic disease. I personally reviewed computed tomography scan of the head and agree with the findings. There is evidence of significant small vessel disease noted in the subcortical region bilaterally. No hemorrhages seen. EKG shows atrial fibrillation, low QRS voltage. Chest x-ray revealed basilar atelectasis favored over pneumonia. Patient has history of diabetes for last 25 years, which is controlled. According to patient's family, he had a stroke 6 years ago, in which he suffered from left-sided weakness with involvement of left arm, leg and left side of the face, but recovered well with no deficits. Patient's home medications include lisinopril 20 mg, insulin, Coumadin, metoprolol, levothyroxine, amlodipine, metformin, Lipitor 20 mg. patient denies missing any doses of his Coumadin. Patient is a nonsmoker, drinks 1 beer a day. Patient has atrial fibrillation on anticoagulation. He has history of stomach cancer status post surgery, along with splenectomy. Review of Systems Patient denies any headache, any dizziness, no chest pain, abdominal pain or any pain anywhere. No fever or chills. Rest of the review of systems, not able to obtain because of his expressive aphasia. Patient is hard of hearing. Past Medical History Past Medical History: Atrial Fibrillation, Coronary Artery Disease (CAD), Cancer, CVA/TIA, Diabetes Mellitus, GI Bleed, Hyperlipidemia, Hypertension, Myocardial Infarction (LA), Osteoarthritis (OA), Prostate Disorder, Thyroid Disorder Additional Past Medical History / Comment(s): SOB w/activity, hx gastric cancer, had stroke 2015-some minimal left sided weakness Last Myocardial Infarction Date:: unknown History of Any Multi-Drug Resistant Organisms: None Reported Past Surgical History: Heart Catheterization With Stent, Hernia Repair, Orthopedic Surgery Additional Past Surgical History / Comment(s): 02/23/13 cardiac cath with stent, bilateral inguinal hernia repair, L middle finger colonoscopy, EGD, 07-27-16 exp laparotomy splenectomy, partial gastrectomy Past Anesthesia/Blood Transfusion Reactions: No Reported Reaction Additional Past Anesthesia/Blood Transfusion Reaction / Comment(s): blood transfusion 07/20/16- no reaction Date of Last Stent Placement:: 02/23/13 Past Psychological History: No Psychological Hx Reported Smoking Status: Never smoker Past Alcohol Use History: Daily Past Drug Use History: None Reported - Past Family History Father Family Medical History: Cancer Additional Family Medical History / Comment(s): Father of leukemia at the age of 68yrs. pts mom had ra and lived to age 93 Mother Family Medical History: No Reported History Additional Family Medical History / Comment(s): Mother was healthy and at the age of 94 yrs. Medications and Allergies Home Medications Medication Instructions Recorded Confirmed Type Insulin Detemir (Levemir) [Levemir] 18 unit SQ QAM 07/19/16 04/04/22 History Warfarin [Coumadin] 7.5 mg PO W/SUPPER 07/19/16 04/03/22 History lisinopriL [Zestril] 20 mg PO DAILY 07/19/16 04/03/22 History Metoprolol Tartrate [Lopressor] 25 mg PO BID #60 tab 08/01/16 04/03/22 Rx Levothyroxine Sodium [Synthroid] 75 mcg PO DAILY@0630 #30 tab 03/15/17 04/03/22 Rx amLODIPine [Norvasc] 5 mg PO DAILY #30 tab 02/04/18 04/03/22 Rx Atorvastatin [Lipitor] 20 mg PO HS 04/03/22 04/03/22 History Insulin Aspart [NovoLOG Flexpen] See Protocol SQ ACHS 04/03/22 04/03/22 History metFORMIN HCL 500 mg PO BID 04/03/22 04/03/22 History Allergies Allergy/AdvReac Type Severity Reaction Status Date / Time No Known Allergies Allergy Verified 04/03/22 10:53 Physical Examination - Vital Signs Vital Signs: Vital Signs Temp Pulse Resp BP Pulse Ox 04/03/22 09:26 84 16 183/96 97 04/03/22 08:52 98.2 F 101 H 18 184/92 98 Intake and Output 04/02/22 04/03/22 04/03/22 22:59 06:59 14:59 Other: Weight 68.946 kg Patient is an elderly male, very pleasant, in no acute distress. Patient is alert awake. His affect appears normal. Patient has significant expressive aphasia. He just repeats mostly "I don't know what you are saying". He cannot name any objects. He can repeat with some difficulty. His comprehension is moderately preserved. He was able to point to the ceiling, show me his thumb, stick out his tongue although with some hesitancy and repeated instructions. With his limited speech, he is not dysarthric. Attention, concentration and fund of knowledge is adequate. On cranial nerve examination, pupils are round and reacting to light, visual lowery reveal some neglect on the right side as compared to the left. He does not blink to visual threat on the right as compared to left. His extraocular muscles are intact with no nystagmus. Face is symmetric, tongue protrudes to the midline. Palatal elevation and sensation normal, hearing is moderately decreased and shoulder shrug normal, facial sensation normal. 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 Deep tendon reflexes are (right/left) biceps trace/2, brachioradialis trace/1+, knee trace/2, ankles trace/trace, plantar is flat on the right, up left. Sensory to touch is equal with no neglect on double simultaneous stimulation. He was able to understand directions for sensory exam. Cerebellar function showed no ataxia for [id number] testing. No dysdiadochokinesia. Tone and bulk of muscles normal. Gait deferred. On general examination, there is no carotid bruit or murmur, S1-S2 audible. Abdomen is soft nontender. No organomegaly, bowel sounds present. Chest is clear. Peripheral pulses are present. No peripheral edema. Results - Laboratory Findings CBC and BMP: 04/03/22 09:20 04/03/22 10:00 Abnormal Lab Findings: Abnormal Labs 04/03/22 04/03/22 04/03/22 08:56 09:20 10:00 Plt Count 147 L PT INR APTT Carbon Dioxide Glucose POC Glucose (mg/dL) 150 H Total Bilirubin Alkaline Phosphatase Urine Ketones 1+ H 04/03/22 04/03/22 10:00 10:00 Plt Count PT 28.8 H INR 2.9 H APTT 35.8 H Carbon Dioxide 21 L Glucose 159 H POC Glucose (mg/dL) Total Bilirubin 1.7 H Alkaline Phosphatase 141 H Urine Ketones Assessment and Plan Assessment: * Probable acute ischemic stroke, manifesting with expressive aphasia and right- sided visual field neglect. Comprehension is mostly preserved, although with the lead response. Stroke appears embolic in nature. * Atrial fibrillation, on long-term anticoagulation with Coumadin. Patient's INR was therapeutic on arrival. 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 Plan: * Patient probably has an ischemic stroke, likely embolic in nature. * Patient on Coumadin, INR therapeutic 2.9. Consider holding Coumadin until MRI rules out hemorrhagic conversion. Patient given aspirin 324 mg. * Carotid Doppler to rule out stenosis * 2-D echo * MRI of the brain * Fasting lipid panel, hemoglobin A1c * Continue close neuro checks. * Telemetry monitoring. * May continue home blood pressure medications, but avoid hypotension. * Speech therapy, PT OT. * Neurology will follow. Thank you for the consult.
[2022-04-04 08:58] LABS: INR 2.8 (<1.2); Prothrombin Time 28.1 sec (9.0-12.0)
[2022-04-04] MEDS ORDERED: INSULIN DETEMIR (LEVEMIR) 100 UNIT/ML SYR SQ SCH (09:00)
--- NOTE | 2022-04-04 09:36 | CA ---
Transthoracic Echo Report Name: Raj Choen Age: 86 Gender: M : 1935 Exam Date: 04/03/2022 14:45 Exam Location: [facility] Ht (in): 68 Wt (lb): 152 Ordering Physician: Sergio Lagunas MD Attending/Referring Phys: Research Programmer Deborah De Santiago RDCS Procedure CPT: Indications: acute CVA Cardiac Hx: Technical Quality: Good Contrast 1: Total Dose (mL): Contrast 2: Total Dose (mL): MEASUREMENTS (Male / Female) Normal Values 2D ECHO LV Diastolic Diameter PLAX 4.0 cm 4.2 - 5.9 / 3.9 - 5.3 cm LV Systolic Diameter PLAX 2.3 cm IVS Diastolic Thickness 1.3 cm 0.6 - 1.0 / 0.6 - 0.9 cm LVPW Diastolic Thickness 1.3 cm 0.6 - 1.0 / 0.6 - 0.9 cm LV Relative Wall Thickness 0.6 RV Internal Dim ED PLAX 3.8 cm LA Systolic Diameter LX 5.1 cm 3.0 - 4.0 / 2.7 - 3.8 cm LA Volume 78.6 cm??? 18 - 58 / 22 - 52 cm??? M-MODE Aortic Root Diameter MM 3.6 cm MV E Point Septal Separation 0.5 cm AV Cusp Separation MM 1.6 cm DOPPLER AV Peak Velocity 120.6 cm/s AV Peak Gradient 5.8 mmHg MV Area PHT 4.0 cm??? MV Deceleration Time 180.1 ms TR Peak Velocity 237.1 cm/s TR Peak Gradient 22.5 mmHg Right Ventricular Systolic Press 27.3 mmHg FINDINGS Left Ventricle Left ventricular ejection fraction is estimated at 55-60%. left ventricular cavity size normal. Mild concentric left ventricular hypertrophy. Mildly increased septal wall thickness. Right Ventricle Moderate right ventricular dilatation. Right ventricular systolic pressure within normal limits. Right Atrium Normal right atrial size. Left Atrium Moderately increased left atrial diameter. Moderately increased left atrial volume. Mildly increased left atrial area. No evidence for an atrial septal defect. Mitral Valve Mitral valve thickened. Mild mitral annular calcification. Mild mitral regurgitation. Aortic Valve Trileaflet aortic valve. Mild aortic regurgitation. Focal thickening of the aortic valve cusps. Tricuspid Valve Mild tricuspid regurgitation. Pulmonic Valve Mild pulmonic regurgitation. Pericardium No pericardial effusion. Aorta Normal size aortic root and proximal ascending aorta. CONCLUSIONS Normal LV size and systolic function with mild concentric LVH. There is mitral annular calcification and aortic sclerosis. Both atria are significantly enlarged. No pericardial effusion mild mitral and tricuspid insufficiency Previewed by: Dr. Bud Mosquera MD (Electronically Signed) Final Date: 04 April 2022 09:35
[2022-04-04] MEDS: amLODIPine 5 MG TAB PO SCH (10:00)
[2022-04-04] MEDS: METOPROLOL TARTRATE 25 MG TAB PO SCH ×2 (10:00→20:42)
[2022-04-04] MEDS: lisinopriL 20 MG TAB PO SCH (10:01)
[2022-04-04 10:38] LABS: Triglycerides 49.8 mg/dL (0.00-149.00)
[2022-04-04 10:52] LABS: Chol/HDL Ratio 2.38 Ratio; LDL Cholesterol,Direct Reflex 71.4 mg/dL (0.00-129.00)
--- NOTE | 2022-04-04 11:10 | MR ---
EXAMINATION TYPE: MR brain wo con DATE OF EXAM: 04/04/2022 COMPARISON: CT brain 04/03/2022, CT brain 08/08/2016 HISTORY: No prior, acute CVA TECHNIQUE: T1-weighted sagittal, T2, FLAIR, and diffusion axial, and T2 coronal coronal views of the brain are submitted. FINDINGS: There is no extensive abnormal signal on diffusion imaging within the left occipital and temporal lob es compatible with ischemia. Smaller areas of abnormal signal are seen within the left parietal lobe superiorly. Small focal areas of abnormal signal seen adjacent to the body of the left lateral ventri mari and within the left basal ganglia. Findings compatible with acute ischemia. There does appear to be mild midline shift from left to right measuring approximately 2 mm. Moderate generalized degenerative change with a slightly greater central component. Diffuse and focal areas of abnormal signal in the white matter are most available remote white matter ischemia. Craniocervical junction maintained. Sella turcica has a normal appearance. Orbits are symmetric. Very mild changes of chronic sinusitis. Abnormal signal within the visualized yumiko is compatible with rem ote ischemia. Report was called to patient's nurse at 10:59 AM 04/04/2022. IMPRESSION: 1. Extensive abnormal signal on diffusion imaging within the left temporal, occipital to lesser exten t within the left parietal lobe and basal ganglia compatible with acute ischemia. 2. There is midline shift from left to right measuring approximately 2 mm of the lateral ventricle. 3. Extensive degenerative and remote ischemic change as discussed above. 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 Correlate clinically. Find ings are stable from recent CT scan and similar to prior CT scan of 2016.
[2022-04-04] MEDS ORDERED: PANTOPRAZOLE 40 MG/10 ML VIAL IVP SCH (11:30)
[2022-04-04 11:41] LABS: Glucose,Whole Blood 328 mg/dL (70-110)
--- NOTE | 2022-04-04 12:56 | CT ---
EXAMINATION TYPE: CT brain wo con CT DLP: 1103.4 mGycm, Automated exposure control for dose reduction was used. DATE OF EXAM: 04/04/2022 12:46 PM COMPARISON: CT brain 04/03/2022, MRI brain 04/04/2022 CLINICAL INDICATION:Male, 86 years old with history of CVA, rule out hemorrhagic conversion, CVA, rul e out hemorrhagic conversion TECHNIQUE: Brain: Multiple axial CT images of the brain were obtained without IV contrast. Coronal and sagittal reformats were reviewed. FINDINGS: Brain: Extra-axial spaces: No abnormal extra-axial fluid collections. Ventricular system: Prominence of the right lateral ventricle compared to the left. Cerebral parenchyma: No acute intraparenchymal hemorrhage. Loss of king-white differentiation with re gion of hypoattenuation which is new from prior CT but corresponds to acute ischemia demonstrated on MRI today. This involves the left occipital and temporal lobes. There is associated effacement of the peripheral sulci. Confluent hypodense areas are seen within the periventricular and subcortical whit e matter. Cerebellum: Unremarkable. Mass effect: There is again midline shift to the right measuring 2 mm of the lateral ventricle. Intracranial vasculature: Atherosclerotic calcifications of the intracranial vessels. Soft tissues: Normal. Calvarium/osseous structures: No depressed skull fracture. Paranasal sinuses and mastoid air cells: Clear Visualized orbits: Bilateral aphakia IMPRESSION: * Acute/subacute ischemia demonstrated within the left occipital and temporal lobes as demonstrated on MRI earlier today. No evidence for hemorrhagic transformation. * Similar midline shift from left to right measuring 2 mm of the lateral ventricle. * Nonspecific white matter changes likely related to chronic small vessel ischemic disease.
--- NOTE | 2022-04-04 14:19 | P.PN ---
Subjective Progress Note Date: 04/04/22 Patient was seen for a follow-up. Patient's was present initially. Later on at the end of interview, patient's daughter and son-in-law also arrived. Patient has improved clinically. Patient denies any headache. He is able to speak sentences although still with some speech difficulty. Denies any numbness tingling, focal weakness. Patient admits that he is having some difficulty with vision on the right. Objective - Vital Signs Vital signs: Vital Signs Temp 98.2 F 04/04/22 08:00 Pulse 98 04/04/22 08:00 Resp 18 04/04/22 08:00 BP 124/58 04/04/22 08:00 Pulse Ox 99 04/04/22 08:00 FiO2 Intake & Output 04/03/22 04/04/22 04/04/22 18:59 06:59 18:59 Intake Total 118 0 120 Output Total 50 Balance 118 -50 120 Weight 68.946 kg Intake: Oral 118 0 120 Output: Urine 50 Other: Voiding Method External Catheter # Voids 1 1 - Exam Patient is an elderly male, very pleasant, in no acute distress. Patient is sitting comfortably in the recliner. Patient is alert awake. His affect appears normal. Patient's expressive speech has improved. He is able to speak in sentences, but still sometimes speaks the same phrase "I don't understand what you are talking". Patient able to name some objects like "glasses", "ear", but not able to name knuckles or the ear lobe. Patient can repeat. His comprehension has significantly improved. He is able to comprehend directions in one attempt. On cranial nerve examination, pupils are equal, round and reacting to light, visual lowery revealed right homonymous hemianopia. His extraocular muscles are intact with no nystagmus. Face is symmetric, tongue protrudes to the midline. Palatal elevation and sensation normal, hearing is moderately decreased and shoulder shrug normal, facial sensation normal. On muscle strength testing, there is no pronator drift and the strength is normal in arms and legs distally and proximally. Deep tendon reflexes are (right/left) biceps trace/2, brachioradialis trace/1+, knee trace/2, ankles trace/trace, plantar is flat on the right, up left. Sensory to touch is equal with no neglect on double simultaneous stimulation. Cerebellar function showed no ataxia for [id number] testing. No dysdiadochokinesia. Tone and bulk of muscles normal. Gait patient able to stand up and walk without any device, and appeared stable. On general examination, there is no carotid bruit or murmur, S1-S2 audible. Abdomen is soft nontender. No organomegaly, bowel sounds present. Chest is clear. Peripheral pulses are present. No peripheral edema. - Labs CBC & Chem 7: 04/03/22 09:20 04/03/22 10:00 Labs: Abnormal Lab Results - Last 24 Hours (Table) 04/03/22 04/03/22 04/03/22 Range/Units 09:20 15:30 16:48 PT (9.0-12.0) sec INR (<1.2) POC Glucose (mg/dL) 215 H 174 H (70-110) mg/dL Hemoglobin A1c 6.6 H (0.0-6.0) % 04/03/22 04/04/22 04/04/22 Range/Units 20:11 06:03 08:24 PT 28.1 H (9.0-12.0) sec INR 2.8 H (<1.2) POC Glucose (mg/dL) 306 H 330 H (70-110) mg/dL Hemoglobin A1c (0.0-6.0) % Assessment and Plan Assessment: * Probable acute ischemic stroke, manifesting with expressive aphasia and right- sided visual field neglect. Comprehension is mostly preserved, although with delayed response. Stroke appears embolic in nature. * Atrial fibrillation, on long-term anticoagulation with Coumadin. Patient's INR was therapeutic on arrival 2.9. 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 Plan: * MRI of the brain was performed today. It revealed extensive abnormal signal on the diffusion imaging within the left temporal occipital to lesser extent within the left parietal lobe and basal ganglia compatible with acute i schemia. There is midline shift from left to right measuring approximately 2 mm of the lateral ventricle. Small vessel ischemic disease. Concern raised about possibility of NPH. On my review, agree with the findings of an acute ischemia involving the regions mentioned above. I felt there was possibility of small intracranial hemorrhage in the left lower temporal region, adjacent to the tentorium. Also I was not impressed with the midline shift, as it was noticeable only in the frontal region, whereas the ischemic stroke involves the posterior temporal occipital region. I feel the midline shift could be possibly physiologic from some volume loss on the right side from previous CVA. Discussed with Dr. Valles, who read the report. He was not convinced about evidence of hemorrhage. * We will check computed tomography scan of the head to rule out hemorrhage. * Patient on Coumadin, INR therapeutic 2.8. * Carotid Doppler revealed atherosclerotic plaque with no significant hemodynam ic stenosis. * 2-D echo revealed normal left ventricular size and systolic function with mild concentric LVH. There is mitral annular calcification and aortic sclerosis. Both atria are significantly enlarged. No pericardial effusion. * Fasting lipid panel with cholesterol 133, LDL 71, HDL 56 and triglycerides 48 * Hemoglobin A1c 6.6 * Continue close neuro checks. * Telemetry monitoring. * May continue home blood pressure medications, but avoid hypotension. * Speech therapy, PT OT. * Discussed with family in detail. Addendum 2:12 p.m.: CT head was performed today, which reported as acute/subacute ischemia demonstrated within the left occipital and temporal lobes as demonstrated on MRI earlier today. No evidence of hemorrhagic transformation. Similar midline shift from left to right measuring 2 mm of the lateral ventricle. Nonspecific white matter change. On my review, there is evidence of small intracranial hemorrhage just above the left tentorial region. I discussed with radiologist Dr. Alcazar, who read the report. He agreed about evidence of an acute intracranial hemorrhage measuring 7 mm in the left posterior temporal lobe. Stop Coumadin. No antiplatelet medication. Apparently aspirin was ordered yesterday, but it appears patient did not receive it. Repeat CT head in the morning. Denies headache at this time. Informed family members about the CT report. Also discussed with primary physician. We discussed about considering giving vitamin K. Would defer to IM regarding vitamin K. Time with Patient: Greater than 30 (Saw patient 3 different times, communicated with family members, staff multiple times.)
[2022-04-04 14:26] VITALS: BMI 23.1
--- NOTE | 2022-04-04 15:04 | P.HPIM ---
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 The night prior patient went to bed at his normal time of 10 PM with no focal deficits noted, and no confusion. Denies trauma. No facial droop, no muscle strength weakness, was able to ambulate without difficulty. Reports right-sided visual disturbance. Hypertensive on arrival with systolic blood pressure in the 180s, heart rate in the low 100s. Denies chest pain, palpitations or shortness of breath. This morning speaking without difficulty, comprehension intact. Currently denies any headache .Vital signs stable. Brain CT reported no acute intracranial process, nonspecific white matter changes, likely secondary to chronic small vessel ischemic change. Brain MRI pending.Carotid Doppler reported no significant hemodynamic stenosis. Echo Doppler reported normal LV function with mild concentric LVH, both atria signif icantly enlarged. Chest x-ray reported basilar atelectasis favored over pneumonia, stable interstitial on the basis of mild chronic interstitial lung disease. Afebrile, normal WBC, hemoglobin 16, platelets 147, MCV 99, INR 2.9, 2.8, sodium 138, potassium 4.2, bicarb 21 renal function stable. Lactic acid 1.3 but sugars 306, hemoglobin A1c 6.6. Total bili 1.7, alk phos 141 troponin negative 1. EKG reporting atrial fibrillation. Toxicology reporting serum alcohol less than 10. Review of Systems ROS Statement: Those systems with pertinent positive or pertinent negative responses have been documented in the HPI. ROS Other: All systems not noted in ROS Statement are negative. Past Medical History Past Medical History: Atrial Fibrillation, Coronary Artery Disease (CAD), Cancer, CVA/TIA, Diabetes Mellitus, GI Bleed, Hyperlipidemia, Hypertension, Myocardial Infarction (VA), Osteoarthritis (OA), Prostate Disorder, Thyroid Disorder Additional Past Medical History / Comment(s): SOB w/activity, hx gastric cancer, had stroke 2015-some minimal left sided weakness Last Myocardial Infarction Date:: unknown History of Any Multi-Drug Resistant Organisms: None Reported Past Surgical History: Heart Catheterization With Stent, Hernia Repair, Orthopedic Surgery Additional Past Surgical History / Comment(s): 02/23/13 cardiac cath with stent, bilateral inguinal hernia repair, L middle finger colonoscopy, EGD, 07-27-16 exp laparotomy splenectomy, partial gastrectomy Past Anesthesia/Blood Transfusion Reactions: No Reported Reaction Additional Past Anesthesia/Blood Transfusion Reaction / Comment(s): blood transfusion 07/20/16- no reaction Date of Last Stent Placement:: 02/23/13 Past Psychological History: No Psychological Hx Reported Smoking Status: Never smoker Past Alcohol Use History: Daily Past Drug Use History: None Reported - Past Family History Father Family Medical History: Cancer Additional Family Medical History / Comment(s): Father of leukemia at the age of 68yrs. pts mom had ra and lived to age 93 Mother Family Medical History: No Reported History Additional Family Medical History / Comment(s): Mother was healthy and at the age of 94 yrs. Medications and Allergies Home Medications Medication Instructions Recorded Confirmed Type Insulin Detemir (Levemir) [Levemir] 18 unit SQ QAM 07/19/16 04/04/22 History Warfarin [Coumadin] 7.5 mg PO W/SUPPER 07/19/16 04/03/22 History lisinopriL [Zestril] 20 mg PO DAILY 07/19/16 04/03/22 History Metoprolol Tartrate [Lopressor] 25 mg PO BID #60 tab 08/01/16 04/03/22 Rx Levothyroxine Sodium [Synthroid] 75 mcg PO DAILY@0630 #30 tab 03/15/17 04/03/22 Rx amLODIPine [Norvasc] 5 mg PO DAILY #30 tab 02/04/18 04/03/22 Rx Atorvastatin [Lipitor] 20 mg PO HS 04/03/22 04/03/22 History Insulin Aspart [NovoLOG Flexpen] See Protocol SQ ACHS 04/03/22 04/03/22 History metFORMIN HCL 500 mg PO BID 04/03/22 04/03/22 History Allergies Allergy/AdvReac Type Severity Reaction Status Date / Time No Known Allergies Allergy Verified 04/03/22 10:53 Physical Exam Vitals: Vital Signs Temp Pulse Pulse Resp BP BP Pulse Ox 04/04/22 08:00 98.2 F 98 18 124/58 99 04/04/22 04:00 98.6 F 98 18 107/64 94 L 04/03/22 23:35 76 18 106/54 93 L 04/03/22 20:20 99.1 F 98 18 119/67 95 04/03/22 17:30 104 H 16 102/56 96 04/03/22 12:30 97.9 F 96 18 120/79 96 Intake and Output 04/03/22 04/04/22 04/04/22 22:59 06:59 14:59 Intake Total 118 120 Output Total 50 Balance 118 -50 120 Intake: Oral 118 120 Output: Urine 50 Other: Voiding Method External Catheter External Catheter # Voids 1 1 PHYSICAL EXAM: VITAL SIGNS: As above GENERAL: Sitting up at side of bed, no acute distress. HEENT: Conjunctivae normal. Right eye neglect/no blinking to potential threat. No facial droop Oral mucosa moist. Comprehension intact. NECK: No JVD. No thyroid enlargement. No LNs CARDIOVASCULAR: S1, S2, irregular.No murmur RESPIRATION: Breath sounds diminished in the bases. No rhonchi or crackles. No bronchial breathing. ABDOMEN: Soft, nontender . No guarding. no masses palpable. No ascites, No hepatosplenomegaly.Bowel sounds heard. LEGS: No edema. no swelling PSYCHIATRY: Alert and oriented X3, mood and affect normal. NERVOUS SYSTEM: Cranial N 2-12 grossly normal with the exception of right eye neglect. Moves all 4 limbs. Strength and sensation grossly intact. Skin: Warm and dry, no rash Results CBC & Chem 7: 04/03/22 09:20 04/03/22 10:00 Labs: Abnormal Lab Results - Last 24 Hours (Table) 04/03/22 04/03/22 04/03/22 Range/Units 09:20 15:30 16:48 PT (9.0-12.0) sec INR (<1.2) POC Glucose (mg/dL) 215 H 174 H (70-110) mg/dL Hemoglobin A1c 6.6 H (0.0-6.0) % 04/03/22 04/04/22 04/04/22 Range/Units 20:11 06:03 08:24 PT 28.1 H (9.0-12.0) sec INR 2.8 H (<1.2) POC Glucose (mg/dL) 306 H 330 H (70-110) mg/dL Hemoglobin A1c (0.0-6.0) % Assessment and Plan Assessment: Probable acute ischemic stroke, expressive aphasia, right-sided visual field neglect, in a patient with history of CVA with left hemiparesis 2015, no residual. MRI pending Atrial fibrillation, anticoagulated on Coumadin CAD, status post stenting of the LAD in 2012 Hypertension Hyperlipidemia Diabetes mellitus, A1c 6.6 History of gastrointestinal stromal tumor History of nicotine dependence Daily alcohol use of 1-2 glasses of wine or beer. Plan: Continue on current medication regime ,monitoring and symptomatic treatment. Neurology workup in progress with MRI of brain pending. Hold Coumadin pending MRI ruling out bleed. Speech therapy/OT consult in place, evaluations/recommendations pending. Prognosis guarded given multiple complex medical issues. The impression and plan of care has been dictated as directed. : I performed a history and examination of this patient, discussed the same with the dictator. I agree with the dictator's note ,documented as a scribe. Any additional findings or plans will be noted.
[2022-04-04 16:53] LABS: Glucose,Whole Blood 306 mg/dL (70-110)
[2022-04-04] MEDS ORDERED: INSULIN ASPART (NovoLOG) 100 UNIT/ML VIAL SQ ONE (19:25)
[2022-04-04 20:36] LABS: Glucose,Whole Blood 206 mg/dL (70-110)
[2022-04-04] MEDS: ATORVASTATIN 20 MG TAB PO SCH (20:42)
[2022-04-05] MEDS ORDERED: PHYTONADIONE 10 MG in SODIUM CHLORIDE 0.9% 50 ML IVPB STA (00:28)
[2022-04-05 06:00] LABS: INR 2.4 (<1.2); Prothrombin Time 23.9 sec (9.0-12.0)
[2022-04-05 06:10] LABS: Glucose,Whole Blood 52 mg/dL (70-110)
[2022-04-05] MEDS: PANTOPRAZOLE 40 MG TABLET PO SCH (06:13)
[2022-04-05] MEDS: LEVOTHYROXINE 75 MCG TAB PO SCH (06:13)
[2022-04-05 06:36] LABS: Glucose,Whole Blood 84 mg/dL (70-110)
[2022-04-05 07:48] LABS: Glucose,Whole Blood 116 mg/dL (70-110)
[2022-04-05] MEDS: INSULIN ASPART (NovoLOG) 100 UNIT/ML VIAL SQ SCH ×7 (07:54→21:05)
[2022-04-05] MEDS: amLODIPine 5 MG TAB PO SCH (08:03)
[2022-04-05] MEDS: METOPROLOL TARTRATE 25 MG TAB PO SCH ×2 (08:03→21:08)
[2022-04-05] MEDS: lisinopriL 20 MG TAB PO SCH (08:03)
[2022-04-05] MEDS: INSULIN DETEMIR (LEVEMIR) 100 UNIT/ML SYR SQ SCH (08:04)
[2022-04-05] MEDS: metFORMIN 500 MG TAB PO SCH ×2 (08:05→17:18)
--- NOTE | 2022-04-05 11:16 | CT ---
EXAMINATION TYPE: CT brain wo con DATE OF EXAM: 04/05/2022 COMPARISON: 04/04/2022 INDICATION: Intracranial hemorrhage follow up DLP: 1129.8 mGycm, Automated exposure control for dose reduction was used. CONTRAST: None CT of the brain is performed utilizing 3 mm thick sections through the posterior fossa and 3 mm thick sections through the remaining calvarium. Study is performed within 24 hours of arrival to the hosp [facility]. No mass lesion is evident. There appears to be progression of a left watershed infarct. The punctate hyperdensity just above the petrous ridge is stable. This measures 0.6 cm and could be related to a parenchymal petechial hemorr madeleine This measures 64 Hounsfield units and is stable. No additional areas of hemorrhage are identifi ed. There is some mild mass effect on the sulci adjacent to the infarct. Chronic appearing periventri cular white matter hypodensity is present likely on the basis of chronic white matter ischemic change s. Ventricles and sulci are otherwise appropriate for the patient age. Paranasal sinuses and mastoid air cells within the field of view are clear. IMPRESSIONS: 1. Maturing left watershed infarct appears stable in distribution over the interval. 2. A petechial hemorrhage suspected just superior to the left petrous ridge within the infarct is sta ble.
[2022-04-05 11:52] LABS: Glucose,Whole Blood 155 mg/dL (70-110)
--- NOTE | 2022-04-05 14:21 | P.PN ---
Subjective Progress Note Date: 04/05/22 Patient was seen for a follow-up. Patient's was present initially. Patient denies headache. Denies any new neurological symptoms. He is expressing more easily and clearly, speaking much more sentences. Comprehension is improved. Expression has improved. No numbness tingling weakness. Telemetry monitoring showing atrial fibrillation. Objective - Vital Signs Vital signs: Vital Signs Temp 98.6 F 04/05/22 12:00 Pulse 105 H 04/05/22 12:00 Resp 16 04/05/22 12:00 BP 136/88 04/05/22 12:00 Pulse Ox 96 04/05/22 12:00 FiO2 Intake & Output 04/04/22 04/05/22 04/05/22 18:59 06:59 18:59 Intake Total 240 240 Output Total 0 Balance 240 0 240 Weight 68.946 kg Intake: Oral 240 240 Output: Urine 0 Other: Voiding Method External Catheter Toilet # Voids 1 1 - Exam Patient is an elderly male, very pleasant, in no acute distress. Patient is sitting comfortably in the recliner. Patient is alert awake. His affect appears normal. Patient's expressive speech has much improved. He is able to speak in sentences. Patient able to name some objects like "pen", "thumb", but not able to name "eye glasses", or knuckles or the button. Patient can repeat. His inability to read is significantly affected. Able to read letters and with very difficulty, occasional words. His comprehension has significantly improved. He is able to comprehend directions in one attempt. On cranial nerve examination, pupils are equal, round and reacting to light, visual lowery revealed right homonymous hemianopia. His extraocular muscles are intact with no nystagmus. Face is symmetric, tongue protrudes to the midline. Palatal elevation and sensation normal, hearing is moderately decreased and shoulder shrug normal, facial sensation normal. On muscle strength testing, there is no pronator drift and the strength is normal in arms and legs distally and proximally. Deep tendon reflexes are (right/left) biceps trace/2, brachioradialis trace/1+, knee trace/2, ankles trace/trace, plantar is flat on the right, up left. Sensory to touch is equal with no neglect on double simultaneous stimulation. Cerebellar function showed no ataxia for [id number] testing. No dysdiadochokinesia. Tone and bulk of muscles normal. Gait deferred. On general examination, there is no carotid bruit or murmur, S1-S2 audible. Abdomen is soft nontender. No organomegaly, bowel sounds present. Chest is clear. Peripheral pulses are present. No peripheral edema. - Labs CBC & Chem 7: 04/03/22 09:20 04/03/22 10:00 Labs: Abnormal Lab Results - Last 24 Hours (Table) 04/04/22 04/04/22 04/05/22 Range/Units 16:51 20:35 05:28 PT 23.9 H (9.0-12.0) sec INR 2.4 H (<1.2) POC Glucose (mg/dL) 306 H 206 H (70-110) mg/dL 04/05/22 04/05/22 04/05/22 Range/Units 06:08 07:47 11:46 PT (9.0-12.0) sec INR (<1.2) POC Glucose (mg/dL) 52 L 116 H 155 H (70-110) mg/dL Assessment and Plan Assessment: * Acute ischemic stroke, involving the left temporal, occipital and to lesser extent within the left parietal lobe and basal ganglia. Patient has slight hemorrhagic conversion of the ischemic stroke. Stroke appears embolic in nature. * Atrial fibrillation, on long-term anticoagulation with Coumadin. Patient's INR was therapeutic on arrival 2.9. 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 Plan: * Repeat CT head from this morning showed maturing left watershed infarct appears stable in distribution over the interval. A petechial hemorrhage suspected just superior to the left petrous ridge within the infarct is stable. No new areas of hemorrhage. I personally reviewed computed tomography scan, agree with the findings. The hemorrhage is not as bright, slightly fading. * Patient is off anticoagulants, not on any antiplatelets. INR this morning is 2.4. Patient has received vitamin K 10 mg IV last night. * Carotid Doppler revealed atherosclerotic plaque with no significant hemodynamic stenosis. * 2-D echo revealed normal left ventricular size and systolic function with mild concentric LVH. There is mitral annular calcification and aortic sclerosis. Both atria are significantly enlarged. No pericardial effusion. * Fasting lipid panel with cholesterol 133, LDL 71, HDL 56 and triglycerides 48 * Hemoglobin A1c 6.6 * Continue close neuro checks. * May continue home blood pressure medications, but avoid hypotension. Blood pressure 136/88. * Speech therapy, PT OT. * Discussed with family in detail. Repeat CT head in the morning. Repeat INR in the morning. Hopefully will be normal. If the bleeding resolved, then we will consider discharge on aspirin 81 mg daily and to follow up with neurologist. Discussed with primary team.
--- NOTE | 2022-04-05 16:40 | P.PN ---
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 The night prior patient went to bed at his normal time of 10 PM with no focal deficits noted, and no confusion. Denies trauma. No facial droop, no muscle strength weakness, was able to ambulate without difficulty. Reports right-sided visual disturbance. Hypertensive on arrival with systolic blood pressure in the 180s, heart rate in the low 100s. Denies chest pain, palpitations or shortness of breath. This morning speaking without difficulty, comprehension intact. Currently denies any headache .Vital signs stable. Brain CT reported no acute intracranial process, nonspecific white matter changes, likely secondary to chronic small vessel ischemic change. Brain MRI pending.Carotid Doppler reported no significant hemodynamic stenosis. Echo Doppler reported normal LV function with mild concentric LVH, both atria significantly enlarged. Chest x-ray reported basilar atelectasis favored over pneumonia, stable interstitial on the basis of mild chronic interstitial lung disease. Afebrile, normal WBC, hemoglobin 16, platelets 147, MCV 99, INR 2.9, 2.8, sodium 138, potassium 4.2, bicarb 21 renal function stable. Lactic acid 1.3 but sugars 306, hemoglobin A1c 6.6. Total bili 1.7, alk phos 141 troponin negative 1. EKG reporting atrial fibrillation. Toxicology reporting serum alcohol less than 10. 04/05/2022 pain MRI completed reporting extensive abnormal signal on diffusion imaging within the left temporal, occipital to lesser extent within the left parietal lobe and basal ganglia compatible with acute ischemia, midline shift from left to right measuring approximately 2 mm of the lateral ventricle, extensive degenerative and remote ischemic change, central greater ventricular prominence associated neural pressure hydrocephalus. Per neurology's review of MRI, possible small intracranial hemorrhage in the left lower temporal region. Brain CT completed post MRI, reporting acute/subacute ischemia within the left occipital and temporal lobes, similar midline shift from left to right measuring 2 mm of the lateral ventricle, nonspecific white matter changes related to chronic small vessel ischemic disease, single focus measuring 7 mm of hyper attenuation in the left posterior temporal lobe consistent with intraparenchymal hemorrhage likely representing hemorrhagic transformation. Coumadin and aspirin discontinued and vitamin K administered. INR down to 2.4. Repeat head CT pending.Denies headache or focal deficits. Confusion significantly improved; m entation, demeanor, attitude appears within normal limits as per PCP, and family. Conversing appropriately. Telemetry atrial fibrillation. Objective - Vital Signs Vital signs: Vital Signs Temp 98.9 F 04/05/22 15:46 Pulse 80 04/05/22 15:46 Resp 18 04/05/22 15:46 BP 114/77 04/05/22 15:46 Pulse Ox 93 L 04/05/22 15:46 FiO2 Intake & Output 04/04/22 04/05/22 04/05/22 18:59 06:59 18:59 Intake Total 240 358 Output Total 0 Balance 240 0 358 Weight 68.946 kg Intake: Oral 240 358 Output: Urine 0 Other: Voiding Method External Catheter Toilet # Voids 1 1 2 - Exam PHYSICAL EXAM: VITAL SIGNS: As above GENERAL: Sitting up at side of bed, no acute distress. HEENT: Conjunctivae normal. PERRL, No facial droop Oral mucosa moist. Comprehension intact. NECK: Supple, No JVD. CARDIOVASCULAR: S1, S2, irregular.No murmur RESPIRATION: Breath sounds diminished in the bases. ABDOMEN: Soft, nontender . No guarding. no masses palpable. Positive Bowel sounds. LEGS: No edema. no swelling PSYCHIATRY: Alert and oriented X3, mood and affect normal. NERVOUS SYSTEM: Cranial N 2-12 grossly normal. Moves all 4 limbs. Strength and sensation grossly intact. Skin: Warm and dry, no rash. - Labs CBC & Chem 7: 04/03/22 09:20 04/03/22 10:00 Labs: Abnormal Lab Results - Last 24 Hours (Table) 04/04/22 04/04/22 04/05/22 Range/Units 16:51 20:35 05:28 PT 23.9 H (9.0-12.0) sec INR 2.4 H (<1.2) POC Glucose (mg/dL) 306 H 206 H (70-110) mg/dL 04/05/22 04/05/22 04/05/22 Range/Units 06:08 07:47 11:46 PT (9.0-12.0) sec INR (<1.2) POC Glucose (mg/dL) 52 L 116 H 155 H (70-110) mg/dL Assessment and Plan Assessment: Acute ischemic stroke, left temporal, occipital, left parietal lobe and basal ganglia with slight hemorrhagic conversion of ischemic stroke per neurology review of radiology studies. Suspected to be embolic per neurology. in a patient with history of CVA with left hemiparesis 2015, no residual. Atrial fibrillation, anticoagulated on Coumadin-currently on hold CAD, status post stenting of the LAD in 2012 Hypertension Hyperlipidemia Diabetes mellitus, A1c 6.6 History of gastrointestinal stromal tumor History of nicotine dependence Daily alcohol use of 1-2 glasses of wine or beer. Plan: Continue on current medication regime ,monitoring and symptomatic treatment. Repeat head CT pending. Aspirin and Coumadin remain on hold. Close monitoring of INR with repeat in a.m. maintain neuro checks. Follow closely with neurology .Speech therapy/OT. Close monitoring of blood sugars, pre-meal adjusted with parameters.Prognosis guarded given multiple complex medical issues. The impression and plan of care has been dictated as directed. : I performed a history and examination of this patient, discussed the same with the dictator. I agree with the dictator's note ,documented as a scribe. Any additional findings or plans will be noted.
[2022-04-05 16:48] LABS: Glucose,Whole Blood 205 mg/dL (70-110)
[2022-04-05 20:02] LABS: Glucose,Whole Blood 93 mg/dL (70-110)
[2022-04-05] MEDS: ATORVASTATIN 20 MG TAB PO SCH (21:08)
[2022-04-06 06:07] LABS: Glucose,Whole Blood 182 mg/dL (70-110)
[2022-04-06] MEDS: LEVOTHYROXINE 75 MCG TAB PO SCH (06:11)
[2022-04-06 06:34] LABS: INR 1.1 (<1.2); Prothrombin Time 12.1 sec (9.0-12.0)
[2022-04-06] MEDS: INSULIN ASPART (NovoLOG) 100 UNIT/ML VIAL SQ SCH ×7 (07:06→20:26)
[2022-04-06] MEDS: INSULIN DETEMIR (LEVEMIR) 100 UNIT/ML SYR SQ SCH (07:07)
[2022-04-06] MEDS: metFORMIN 500 MG TAB PO SCH ×2 (07:07→16:59)
[2022-04-06] MEDS: PANTOPRAZOLE 40 MG TABLET PO SCH (07:07)
[2022-04-06] MEDS: amLODIPine 5 MG TAB PO SCH (10:24)
[2022-04-06] MEDS: lisinopriL 20 MG TAB PO SCH ×2 (10:24→16:48)
[2022-04-06] MEDS: METOPROLOL TARTRATE 25 MG TAB PO SCH ×2 (10:30→20:28)
[2022-04-06 11:51] LABS: Glucose,Whole Blood 248 mg/dL (70-110)
--- NOTE | 2022-04-06 12:40 | P.DS ---
Providers Date of admission: 04/04/22 08:47 Expected date of discharge: 04/06/22 Attending physician: Carlos Riley Consults: 04/03/22 12:23 Consult Physician Routine Consulting Provider: Sergio Lagunas Consult Reason/Comments: TIA Do you want consulting provider notified?: Yes Primary care physician: Carlos Riley Hospital Course: Final Diagnoses: Acute ischemic stroke, left temporal, occipital, left parietal lobe and basal ganglia with slight hemorrhagic conversion of ischemic stroke per neurology review of radiology studies. Suspected to be embolic per neurology. in a patient with history of CVA with left hemiparesis 2015, no residual. Atrial fibrillation, anticoagulated on Coumadin-currently on hold CAD, status post stenting of the LAD in 2012 Hypertension Hyperlipidemia Diabetes mellitus, A1c 6.6 History of gastrointestinal stromal tumor History of nicotine dependence Daily alcohol use of 1-2 glasses of wine or beer. Hospital course:This is an 86-year-old with past medical history of atrial fibrillation /anticoagulated on Coumadin, CAD, NM, CVA/TIA with left-sided hemiparesis -no residual, diabetes mellitus, GI bleed, hypertension and hyperlipidemia, hypothyroidism, prostate disorder, osteoarthritis, gastrointestinal stromal tumor-status post surgery and multiple other medical issues brought into the ER by family with reports of confusion, inability to comprehend what family members were saying to him, that had initiated upon awakening. The night prior patient went to bed at his normal time of 10 PM with no focal deficits noted, and no confusion. Denies trauma. No facial droop, no muscle strength weakness, was able to ambulate without difficulty. Reports right-sided visual disturbance. Hypertensive on arrival with systolic blood pressure in the 180s, heart rate in the low 100s. Denies chest pain, palpitations or shortness of breath. This morning speaking without difficulty, comprehension intact. Currently denies any headache .Vital signs stable. Brain CT reported no acute intracranial process, nonspecific white matter changes, likely secondary to chronic small vessel ischemic change. Brain MRI pending.Carotid Doppler reported no significant hemodynamic stenosis. Echo Doppler reported normal LV function with mild concentric LVH, both atria significantly enlarged. Chest x-ray reported basilar atelectasis favored over pneumonia, stable interstitial on the basis of mild chronic interstitial lung disease. Afebrile, normal WBC, hemoglobin 16, platelets 147, MCV 99, INR 2.9, 2.8, sodium 138, potassium 4.2, bicarb 21 renal function stable. Lactic acid 1.3 but sugars 306, hemoglobin A1c 6.6. Total bili 1.7, alk phos 141 troponin negative 1. EKG reporting atrial fibrillation. Toxicology reporting serum alcohol less than 10. 04/05/2022 pain MRI completed reporting extensive abnormal signal on diffusion imaging within the left temporal, occipital to lesser extent within the left parietal lobe and basal ganglia compatible with acute ischemia, midline shift from left to right measuring approximately 2 mm of the lateral ventricle, extensive degenerative and remote ischemic change, central greater ventricular prominence associated neural pressure hydrocephalus. Per neurology's review of MRI, possible small intracranial hemorrhage in the left lower temporal region. Brain CT completed post MRI, reporting acute/subacute ischemia within the left occipital and temporal lobes, similar midline shift from left to right measuring 2 mm of the lateral ventricle, nonspecific white matter changes related to chronic small vessel ischemic disease, single focus measuring 7 mm of hyper attenuation in the left posterior temporal lobe consistent with intraparenchymal hemorrhage likely representing hemorrhagic transformation. Coumadin and aspirin discontinued and vitamin K administered. INR down to 2.4. Repeat head CT pending.Denies headache or focal deficits. Confusion significantly improved; mentation, demeanor, attitude appears within normal limits as per PCP, and family. Conversing appropriately. Telemetry atrial fibrillation. Significant clinical improvement. ANO 3, no confusion. Comprehending / Conversing easily and appropriately. Denies any new neurological symptoms. Denies lightheadedness dizziness or focal deficits. Denies chest pain, palpitations or shortness of breath. INR down to 1.1. Potential repeat head CT today as per neurology. Telemetry atrial fibrillation. Anticoagulation previously discussed with neurology ; At discharge,No Coumadin, home on aspirin 81 mg daily only , further anticoagulation will need to be discussed outpatient in clinic, outpatient follow-up CT as advised per neurology. Patient will be discharged home today in a stable condition with guarded prognosis pending final DC recommendations and clearance per neurology. The impression and plan of care has been dictated as directed. : I performed a history and examination of this patient, discussed the same with the dictator. I agree with the dictator's note ,documented as a scribe. Any additional findings or plans will be noted. Patient Condition at Discharge: Stable Plan - Discharge Summary New Discharge Prescriptions: New Aspirin EC [Ecotrin Low Dose] 81 mg PO DAILY #30 tab Continue lisinopriL [Zestril] 20 mg PO DAILY Insulin Detemir (Levemir) [Levemir] 18 unit SQ QAM Metoprolol Tartrate [Lopressor] 25 mg PO BID #60 tab Levothyroxine Sodium [Synthroid] 75 mcg PO DAILY@0630 #30 tab amLODIPine [Norvasc] 5 mg PO DAILY #30 tab metFORMIN HCL 500 mg PO BID Atorvastatin [Lipitor] 20 mg PO HS Insulin Aspart [NovoLOG Flexpen] See Protocol SQ ACHS Discontinued Warfarin [Coumadin] 7.5 mg PO W/SUPPER Discharge Medication List Insulin Detemir (Levemir) [Levemir] 18 unit SQ QAM 07/19/16 [History] lisinopriL [Zestril] 20 mg PO DAILY 07/19/16 [History] Metoprolol Tartrate [Lopressor] 25 mg PO BID #60 tab 08/01/16 [Rx] Levothyroxine Sodium [Synthroid] 75 mcg PO DAILY@0630 #30 tab 03/15/17 [Rx] amLODIPine [Norvasc] 5 mg PO DAILY #30 tab 02/04/18 [Rx] Atorvastatin [Lipitor] 20 mg PO HS 04/03/22 [History] Insulin Aspart [NovoLOG Flexpen] See Protocol SQ ACHS 04/03/22 [History] metFORMIN HCL 500 mg PO BID 04/03/22 [History] Aspirin EC [Ecotrin Low Dose] 81 mg PO DAILY #30 tab 04/06/22 [Rx] Follow up Appointment(s)/Referral(s): Carlos Riley DO [Primary Care Provider] - 3 Days Yobani Kuo DO [STAFF PHYSICIAN] - 1 Week Activity/Diet/Wound Care/Special Instructions: No Coumadin, home on aspirin 81 mg daily only , further anticoagulation will need to be discussed outpatient in clinic, outpatient follow-up CT as advised per neurology.
--- NOTE | 2022-04-06 15:49 | CT ---
EXAMINATION TYPE: CT brain wo con DATE OF EXAM: 04/06/2022 COMPARISON: 04/05/2022 HISTORY: 86-year-old male follow-up on ICH TECHNIQUE: Examination was done in axial plane without intravenous contrast. Coronal and sagittal r econstructions performed. CT DLP: 1143.4 mGycm Automated exposure control for dose reduction was used. FINDINGS: Cortical and subcortical encephalomalacia/gliosis right lateral frontotemporal junction is unchanged. Confluent white matter hypodensities in both cerebral hemispheres and similar subcortical hypodensity relating to left posterior watershed infarct. No effacement of the basal subarachnoid cisterns or he rniation. Similar minimal 4 mm of rightward midline shift. There is stable mild ventricular prominence likely secondary to central cerebral atrophy. Stable 6 mm focus of petechial hemorrhage overlying the left petrous ridge, axial image 17 and nuñez l image 46. No new intracranial hemorrhage or extra-axial fluid collection is seen. Paranasal sinuses and mastoid air cells are well pneumatized. Orbits and globes are intact. IMPRESSION: Similar appearance to the subacute left posterior watershed infarct with associated tiny 6 mm petechi al hemorrhage overlying the left petrous ridge. No new intracranial hemorrhage. Trace [address] midline shift is unchanged in retrospect. No herniation or hydrocephalus.
[2022-04-06 17:11] LABS: Glucose,Whole Blood 201 mg/dL (70-110)
[2022-04-06 19:56] LABS: Glucose,Whole Blood 84 mg/dL (70-110)
[2022-04-06] MEDS: ATORVASTATIN 20 MG TAB PO SCH (20:28)
[2022-04-07 04:30] VITALS: RESP 18
[2022-04-07] MEDS: LEVOTHYROXINE 75 MCG TAB PO SCH (05:59)
[2022-04-07 06:01] LABS: Glucose,Whole Blood 122 mg/dL (70-110)
[2022-04-07] MEDS: PANTOPRAZOLE 40 MG TABLET PO SCH (06:21)
[2022-04-07] MEDS: metFORMIN 500 MG TAB PO SCH (06:21)
[2022-04-07] MEDS: INSULIN ASPART (NovoLOG) 100 UNIT/ML VIAL SQ SCH ×2 (08:15→09:00)
[2022-04-07] MEDS: INSULIN DETEMIR (LEVEMIR) 100 UNIT/ML SYR SQ SCH (08:15)
[2022-04-07] MEDS: lisinopriL 20 MG TAB PO SCH (08:16)
[2022-04-07] MEDS: amLODIPine 5 MG TAB PO SCH (08:16)
[2022-04-07] MEDS: METOPROLOL TARTRATE 25 MG TAB PO SCH (08:16)
--- NOTE | 2022-04-07 08:45 | P.PN ---
Subjective Progress Note Date: 04/06/22 Patient was seen for a follow-up. Patient's and their daughter were present today. Patient denies headache. Patient states he is having difficulty remembering, difficulty reading. He is expressing more easily and clearly, speaking much more sentences. Comprehension is improved. Expression has i mproved. No numbness tingling weakness. Objective - Vital Signs Vital signs: Vital Signs Temp 98.3 F 04/06/22 12:14 Pulse 81 04/06/22 16:25 Resp 18 04/06/22 16:25 BP 151/85 04/06/22 12:14 Pulse Ox 97 04/06/22 12:14 FiO2 Intake & Output 04/05/22 04/06/22 04/06/22 18:59 06:59 18:59 Intake Total 594 Balance 594 Intake: Oral 594 Other: Voiding Method Toilet Toilet Toilet # Voids 2 1 - Exam Patient is an elderly male, very pleasant, in no acute distress. Patient is sitting comfortably in the recliner. Patient is alert awake. His affect appears normal. Patient's expressive speech has much improved. He is able to speak in sentences. Patient was able to name all 5 objects presented including "pen", "glasses, earlobe, knuckles and button". He often has to think for some time before he could answer the names. However it has much improved. Patient can repeat without any difficulty. His comprehension has significantly improved. He is able to comprehend directions in one attempt. On cranial nerve examination, pupils are equal, round and reacting to light, visual lowery revealed right homonymous hemianopia. His extraocular muscles are intact with no nystagmus. Face is symmetric, tongue protrudes to the midline. Palatal elevation and sensation normal, hearing is moderately decreased and shou lder shrug normal, facial sensation normal. On muscle strength testing, there is no pronator drift and the strength is normal in arms and legs distally and proximally. Deep tendon reflexes are (right/left) biceps trace/2, brachioradialis trace/1+, knee trace/2, ankles trace/trace, plantar is flat on the right, up left. Sensory to touch is equal with no neglect on double simultaneous stimulation. Cerebellar function showed no ataxia for [id number] testing. No dysdiadochokinesia. Tone and bulk of muscles normal. Gait deferred. On general examination, there is no carotid bruit or murmur, S1-S2 audible. Abdomen is soft nontender. No organomegaly, bowel sounds present. Chest is clear. Peripheral pulses are present. No peripheral edema. - Labs CBC & Chem 7: 04/03/22 09:20 04/03/22 10:00 Labs: Abnormal Lab Results - Last 24 Hours (Table) 04/05/22 04/06/22 04/06/22 Range/Units 16:41 05:32 06:05 PT 12.1 H (9.0-12.0) sec POC Glucose (mg/dL) 205 H 182 H (70-110) mg/dL 04/06/22 Range/Units 11:36 PT (9.0-12.0) sec POC Glucose (mg/dL) 248 H (70-110) mg/dL Assessment and Plan Assessment: * Acute ischemic stroke, involving the left temporal, occipital and to lesser extent within the left parietal lobe and basal ganglia. Patient has slight hemorrhagic conversion of the ischemic stroke. Stroke appears embolic in cate ure. * Atrial fibrillation, on long-term anticoagulation with Coumadin. Patient's INR was therapeutic on arrival 2.9. * Diabetes * Hypertension * History of stomach cancer * History of CVA 2015 (left hemiparesis), with no residual deficits. Plan: * Repeat CT head from this morning (04/06/2022) reveals similar appearance to the subacute left posterior watershed infarct with associated tiny 6 mm petechial hemorrhage overlying the left petrous ridge. No new intracranial hemorrhage. Trace 4 mm rightward midline shift is unchanged. No herniation or hydrocephalus. I personally reviewed CT head, and agree with the findings. * Patient is off anticoagulants, not on any antiplatelets. INR this morning is 1.1. (Received vitamin K yesterday) * Carotid Doppler revealed atherosclerotic plaque with no significant hemodynamic stenosis. * 2-D echo revealed normal left ventricular size and systolic function with mild concentric LVH. There is mitral annular calcification and aortic sclerosis. Both atria are significantly enlarged. No pericardial effusion. * Fasting lipid panel with cholesterol 133, LDL 71, HDL 56 and triglycerides 48. Continue Lipitor 20 mg daily. * Hemoglobin A1c 6.6 * Speech therapy, PT OT. * Discussed with family in detail. * Neurologically clear for discharge. No aspirin for another [address] head in 7 days and follow up with neurologist right after CT head. If the hemorrhage has resolved, then may resume aspirin 81 mg as an outpatient. Defer to the timing for anticoagulation upto the neurologist outpatient. * Informed the nurse about neurological clearance. Patient's appears to keep patient overnight in the hospital, so she can make some adjustment in her house. Addendum 05/26/2022: Saw the CT head from 04/12/2022 and then from 04/13/2022. Called patient's home and spoke to his . He is doing well. Not on ASA or anticoagulants. He has an appointment with Dr Kuo on 04/27/2022. Instructed his to discuss with Dr Kuo about starting aspirin vs resuming anticoagulation.
[2022-04-07 09:08] VITALS: BP 153/94; PULSE 79; TEMP 97.8
[2022-04-07 11:56] LABS: Glucose,Whole Blood 162 mg/dL (70-110)
--- NOTE | 2022-04-07 15:52 | PN ---
PROGRESS NOTE I am covering for Dr. Riley. DATE OF SERVICE: 04/07/2022 This 86-year-old gentleman who was admitted with acute ischemic stroke, including the left temporal area, was having hypertension yesterday. No chest pain. No palpitations. No fever. The patient is ready to be discharged today. No fever. No cough. PHYSICAL EXAMINATION: Pulse is 79, blood pressure 150/94, respiration 18. HEENT: Conjunctivae normal. NECK: No jugular venous distention. CARDIOVASCULAR: S1, S2 muffled. RESPIRATION: Breath sounds diminished at the bases. ABDOMEN: Soft. LEGS: No edema. No swelling. NERVOUS SYSTEM: Diffusely weak. LABS: Reviewed. ASSESSMENT: 1. Acute stroke in the left temporal occipital parietal areas. 2. Hypertension. 3. Coronary artery disease. 4. Multiple medical issues. RECOMMENDATIONS AND DISCUSSION: In this 86-year-old gentleman who was admitted with stroke had mainly isolated systolic hypertension and some diastolic elevation of blood pressure. I would recommend continuing the home medication and monitor blood pressure closely. Follow up with Dr. Riley and Neurology as an outpatient. Discussed with the patient and the patient's at the bedside. Further recommendations to follow. MMODL / IJN: [id number] / MTDD
== END 2022-04-07 13:09 | disposition home or self-care (01) | DRG 65 ==
LOC: EC 08:45 → 3SCARD 12:22 → OBSVTOIN 04-04 08:47
PROVIDERS: ADMIT Family Medicine; ATTEND Family Medicine
DX: I63.40 Cerebral infarction due to embolism of unspecified cerebral artery (principal); I48.20 Chronic atrial fibrillation, unspecified; J98.11 Atelectasis; E11.9 Type 2 diabetes mellitus without complications; E78.5 Hyperlipidemia, unspecified; E86.0 Dehydration; I10 Essential (primary) hypertension; R47.01 Aphasia; I25.10 Atherosclerotic heart disease of native coronary artery without angina pectoris; I25.2 Old myocardial infarction; H54.61 Unqualified visual loss, right eye, normal vision left eye; Z79.01 Long term (current) use of anticoagulants; Z79.4 Long term (current) use of insulin; Z79.84 Long term (current) use of oral hypoglycemic drugs; Z79.890 Hormone replacement therapy; Z79.899 Other long term (current) drug therapy; Z85.028 Personal history of other malignant neoplasm of stomach; Z85.831 Personal history of malignant neoplasm of soft tissue; Z87.891 Personal history of nicotine dependence; Z90.3 Acquired absence of stomach [part of]; Z90.81 Acquired absence of spleen; Z95.5 Presence of coronary angioplasty implant and graft; Z71.3 Dietary counseling and surveillance; R29.701 NIHSS score 1
CPT/HCPCS: 36415; 70450; 70551; 71046; 80053; 80061; 80306; 80320; 81003; 82140; 83036; 83605; 83721; 83735; 84484; 85025; 85610; 85730; 93005; 93306; 93880; 96360; 96361; 99285

== ENCOUNTER → 2022-04-12 | Outpatient (CLI) | payer MEDICARE ==
--- NOTE | 2022-04-12 14:17 | CT ---
EXAMINATION TYPE: CT brain wo con CT DLP: 1141 mGycm, Automated exposure control for dose reduction was used. DATE OF EXAM: 04/12/2022 1:54 PM COMPARISON: Multiple CT brains with most recent 04/06/2022. CLINICAL INDICATION:Male, 86 years old with history of I63.9 CEREBRAL INFARCTION, TECHNIQUE: Brain: Multiple axial CT images of the brain were obtained without IV contrast. Coronal and sagittal reformats reviewed. FINDINGS: Brain: Extra-axial spaces: No abnormal extra-axial fluid collections. Ventricular system: Stable mild ventricular prominence likely secondary to central cerebral atrophy. Cerebral parenchyma: Cortical and subcortical areas of encephalomalacia/gliosis the right lateral fro ntotemporal junction is unchanged. Confluent white matter hypodensities in both cerebral hemispheres and similar subcortical hypodensity relating to left posterior watershed infarct. No effacement of th e basal subarachnoid cisterns to indicate herniation. Stable hemorrhagic conversion. Cerebellum: Unremarkable. Mass effect: Similar minimal 4 mm of rightward midline shift. Intracranial vasculature: Atherosclerotic calcifications of the intracranial vessels. Soft tissues: Normal. Calvarium/osseous structures: No depressed skull fracture. Paranasal sinuses and mastoid air cells: Clear Visualized orbits: Bilateral aphakia IMPRESSION: Unchanged appearance to subacute left posterior watershed infarct with stable hemorrhagic conversion. Trace 4 mm rightward midline shift is unchanged.
== END | disposition home or self-care (01) ==
LOC: RADCTMAIN 13:07
PROVIDERS: ATTEND Family Medicine
DX: I63.9 Cerebral infarction, unspecified (principal)
CPT/HCPCS: 70450

== ENCOUNTER 2022-04-13 10:37 | Emergency (ER) | payer OTHER, MEDICARE ==
[2022-04-13] MEDS ORDERED: SODIUM CHLORIDE 0.9% 500 ML 500 ML IV ONE (10:46)
[2022-04-13 10:54] VITALS: RESP 16; TEMP 98.4
--- NOTE | 2022-04-13 10:56 | ED ---
General Adult HPI - General Stated complaint: CVA Time Seen by Provider: 04/13/22 10:37 Source: patient, RN notes reviewed, old records reviewed - History of Present Illness Initial comments: This is an 86-year-old male who presents to the emergency department because he was on the toilet and couldn't get up some family wanted to come in because of weakness he is got dementia and is somewhat altered always according to EMS this is his baseline. Patient himself has no complaint. Patient denies chest pain difficulty breathing or shortness of breath per patient has abdominal pain. Patient denies any recent fever chills or cough per patient denies nausea vomiting diarrhea. - Related Data Home Medications Medication Instructions Recorded Confirmed Insulin Detemir (Levemir) [Levemir] 18 unit SQ DAILY 07/19/16 04/13/22 lisinopriL [Zestril] 20 mg PO DAILY 07/19/16 04/13/22 Atorvastatin [Lipitor] 20 mg PO HS 04/03/22 04/13/22 Insulin Aspart [NovoLOG Flexpen] See Protocol SQ ACHS 04/03/22 04/13/22 metFORMIN HCL 500 mg PO BID 04/03/22 04/13/22 Previous Rx's Medication Instructions Recorded Metoprolol Tartrate [Lopressor] 25 mg PO BID #60 tab 08/01/16 Levothyroxine Sodium [Synthroid] 75 mcg PO DAILY@0630 #30 tab 03/15/17 amLODIPine [Norvasc] 5 mg PO DAILY #30 tab 02/04/18 Aspirin EC [Ecotrin Low Dose] 81 mg PO DAILY #30 tab 04/06/22 Allergies Allergy/AdvReac Type Severity Reaction Status Date / Time No Known Allergies Allergy Verified 04/13/22 13:19 Review of Systems ROS Statement: Those systems with pertinent positive or pertinent negative responses have been documented in the HPI. ROS Other: All systems not noted in ROS Statement are negative. Past Medical History Past Medical History: Atrial Fibrillation, Coronary Artery Disease (CAD), Cancer, CVA/TIA, Diabetes Mellitus, GI Bleed, Hyperlipidemia, Hypertension, Myocardial Infarction ([place]), Osteoarthritis (OA), Prostate Disorder, Thyroid Disorder Additional Past Medical History / Comment(s): SOB w/activity, hx gastric cancer, had stroke 2015-some minimal left sided weakness Last Myocardial Infarction Date:: unknown History of Any Multi-Drug Resistant Organisms: None Reported Past Surgical History: Heart Catheterization With Stent, Hernia Repair, Orthopedic Surgery Additional Past Surgical History / Comment(s): 02/23/13 cardiac cath with stent, bilateral inguinal hernia repair, L middle finger colonoscopy, EGD, 07-27-16 exp laparotomy splenectomy, partial gastrectomy Past Anesthesia/Blood Transfusion Reactions: No Reported Reaction Additional Past Anesthesia/Blood Transfusion Reaction / Comment(s): blood transfusion 07/20/16- no reaction Date of Last Stent Placement:: 02/23/13 Past Psychological History: No Psychological Hx Reported Smoking Status: Never smoker Past Alcohol Use History: Daily Past Drug Use History: None Reported - Past Family History Father Family Medical History: Cancer Additional Family Medical History / Comment(s): Father of leukemia at the age of 68yrs. pts mom had ra and lived to age 93 Mother Family Medical History: No Reported History Additional Family Medical History / Comment(s): Mother was healthy and at the age of 94 yrs. General Exam - General Exam Comments Initial Comments: GENERAL: Patient is well-developed and well-nourished. Patient is nontoxic and well- hydrated and is in no acute distress. ENT: Neck is soft and supple. No significant lymphadenopathy is noted. Oropharynx is clear. Moist mucous membranes. Neck has full range of motion without eliciting any pain. EYES: The sclera were anicteric and conjunctiva were pink and moist. Extraocular movements were intact and pupils were equal round and reactive to light. Eyelids were unremarkable. PULMONARY: Unlabored respirations. Good breath sounds bilaterally. No audible rales rhonchi or wheezing was noted. CARDIOVASCULAR: There is a regular rate and rhythm without any murmurs gallops or rubs. ABDOMEN: Soft and nontender with normal bowel sounds. SKIN: Skin is clear with no lesions or rashes and otherwise unremarkable. NEUROLOGIC: Patient is alert and oriented 2. Cranial nerves II through XII are grossly intact. Motor and sensory are also intact. Normal speech, volume and content. Symmetrical smile. MUSCULOSKELETAL: Normal extremities with adequate strength and full range of motion. LYMPHATICS: No significant lymphadenopathy is noted PSYCHIATRIC: Normal psychiatric evaluation. Limitations: altered mental status (Patient is a very poor historian doesn't know the month or the year since difficult to take any of his history as accurate but he has no complaints and no one came with him) Course Vital Signs 04/13/22 10:45 Temperature 98.4 F Pulse Rate 78 Respiratory 16 Rate Blood Pressure 177/99 O2 Sat by Pulse 98 Oximetry Medical Decision Making - Medical Decision Making EKG shows atrial fibrillation 75 bpm QRS is 91 QT interval 365 QTC is 393. Patient's EKG shows no ST segment elevation or depression. Patient was able to ambulate the emergency department at his baseline according to family. I spoke with Dr. Osvaldo Riley wants patient to be sent home not to start any thinners or aspirin and to follow-up with him as an outpatient. - Lab Data Result diagrams: 04/13/22 10:57 04/13/22 10:57 Lab Results 04/13/22 04/13/22 04/13/22 Range/Units 10:57 10:57 10:57 WBC 7.6 (3.8-10.6) k/uL RBC 4.41 (4.30-5.90) m/uL Hgb 14.6 (13.0-17.5) gm/dL Hct 44.1 (39.0-53.0) % MCV 100.0 (80.0-100.0) fL MCH 33.1 (25.0-35.0) pg MCHC 33.1 (31.0-37.0) g/dL RDW 13.6 (11.5-15.5) % Plt Count 175 (150-450) k/uL MPV 10.8 Neutrophils % 61 % Lymphocytes % 24 % Monocytes % 10 % Eosinophils % 2 % Basophils % 1 % Neutrophils # 4.7 (1.3-7.7) k/uL Lymphocytes # 1.9 (1.0-4.8) k/uL Monocytes # 0.7 (0-1.0) k/uL Eosinophils # 0.2 (0-0.7) k/uL Basophils # 0.0 (0-0.2) k/uL PT 10.7 (9.0-12.0) sec INR 1.0 (<1.2) APTT 24.9 (22.0-30.0) sec Sodium (137-145) mmol/L Potassium (3.5-5.1) mmol/L Chloride (98-107) mmol/L Carbon Dioxide (22-30) mmol/L Anion Gap mmol/L BUN (9-20) mg/dL Creatinine (0.66-1.25) mg/dL Est GFR (CKD-EPI)AfAm (>60 ml/min/1.73 sqM) Est GFR (CKD-EPI)NonAf (>60 ml/min/1.73 sqM) Glucose (74-99) mg/dL POC Glucose (mg/dL) (70-110) mg/dL POC Glu Tubing Machine Tender ID Calcium (8.4-10.2) mg/dL Total Bilirubin (0.2-1.3) mg/dL AST (17-59) U/L ALT (4-49) U/L Alkaline Phosphatase (38-126) U/L Troponin I (0.000-0.034) ng/mL Total Protein (6.3-8.2) g/dL Albumin (3.5-5.0) g/dL Urine Opiates Screen Not Detected (NotDetected) Ur Oxycodone Screen Not Detected (NotDetected) Urine Methadone Screen Not Detected (NotDetected) Ur Propoxyphene Screen Not Detected (NotDetected) Ur Barbiturates Screen Not Detected (NotDetected) U Tricyclic Antidepress Not Detected (NotDetected) Ur Phencyclidine Scrn Not Detected (NotDetected) Ur Amphetamines Screen Not Detected (NotDetected) U Methamphetamines Scrn Not Detected (NotDetected) U Benzodiazepines Scrn Not Detected (NotDetected) Urine Cocaine Screen Not Detected (NotDetected) U Marijuana (THC) Screen Not Detected (NotDetected) 04/13/22 04/13/22 04/13/22 Range/Units 10:57 10:57 14:26 WBC (3.8-10.6) k/uL RBC (4.30-5.90) m/uL Hgb (13.0-17.5) gm/dL Hct (39.0-53.0) % MCV (80.0-100.0) fL MCH (25.0-35.0) pg MCHC (31.0-37.0) g/dL RDW (11.5-15.5) % Plt Count (150-450) k/uL MPV Neutrophils % % Lymphocytes % % Monocytes % % Eosinophils % % Basophils % % Neutrophils # (1.3-7.7) k/uL Lymphocytes # (1.0-4.8) k/uL Monocytes # (0-1.0) k/uL Eosinophils # (0-0.7) k/uL Basophils # (0-0.2) k/uL PT (9.0-12.0) sec INR (<1.2) APTT (22.0-30.0) sec Sodium 136 L (137-145) mmol/L Potassium 4.3 (3.5-5.1) mmol/L Chloride 104 (98-107) mmol/L Carbon Dioxide 24 (22-30) mmol/L Anion Gap 8 mmol/L BUN 20 (9-20) mg/dL Creatinine 0.81 (0.66-1.25) mg/dL Est GFR (CKD-EPI)AfAm >90 (>60 ml/min/1.73 sqM) Est GFR (CKD-EPI)NonAf 80 (>60 ml/min/1.73 sqM) Glucose 210 H (74-99) mg/dL POC Glucose (mg/dL) 125 H (70-110) mg/dL POC Glu Tubing Machine Tender ID [place] Calcium 9.1 (8.4-10.2) mg/dL Total Bilirubin 1.3 (0.2-1.3) mg/dL AST 30 (17-59) U/L ALT 21 (4-49) U/L Alkaline Phosphatase 114 (38-126) U/L Troponin I <0.012 (0.000-0.034) ng/mL Total Protein 6.7 (6.3-8.2) g/dL Albumin 4.0 (3.5-5.0) g/dL Urine Opiates Screen (NotDetected) Ur Oxycodone Screen (NotDetected) Urine Methadone Screen (NotDetected) Ur Propoxyphene Screen (NotDetected) Ur Barbiturates Screen (NotDetected) U Tricyclic Antidepress (NotDetected) Ur Phencyclidine Scrn (NotDetected) Ur Amphetamines Screen (NotDetected) U Methamphetamines Scrn (NotDetected) U Benzodiazepines Scrn (NotDetected) Urine Cocaine Screen (NotDetected) U Marijuana (THC) Screen (NotDetected) Disposition Clinical Impression: Weakness Disposition: HOME SELF-CARE Condition: Good Instructions (If sedation given, give patient instructions): Weakness (ED) Is patient prescribed a controlled substance at d/c from ED?: No Referrals: Carlos Riley DO [Primary Care Provider] - 1-2 days Time of Disposition: 14:18
[2022-04-13 11:17] LABS: Basophils % (A) 1 %; Eosinophils # (A) 0.2 k/uL (0-0.7); Eosinophils % (A) 2 %; HCT 44.1 % (39.0-53.0); HGB 14.6 gm/dL (13.0-17.5); Lymphocytes # (A) 1.9 k/uL (1.0-4.8); Lymphocytes % (A) 24 %; MCH 33.1 pg (25.0-35.0); MCHC 33.1 g/dL (31.0-37.0); Mean Platelet Volume 10.8; Monocytes # (A) 0.7 k/uL (0-1.0); Monocytes % (A) 10 %; Neutrophils # (A) 4.7 k/uL (1.3-7.7); Neutrophils % (A) 61 %; Platelet Count 175 k/uL (150-450); RBC 4.41 m/uL (4.30-5.90); RDW 13.6 % (11.5-15.5); WBC 7.6 k/uL (3.8-10.6)
--- NOTE | 2022-04-13 11:19 | XR ---
EXAMINATION TYPE: XR chest 2V DATE OF EXAM: 04/13/2022 COMPARISON: Chest x-ray April 03, 2022. HISTORY: History of GIST with weakness. TECHNIQUE: Frontal and lateral views of the chest are obtained. FINDINGS: Cardiomegaly is redemonstrated with atherosclerotic thoracic aorta. Underlying scoliosis i s again seen. No suspicious focal airspace opacity, pleural effusion, or pneumothorax is present bila terally. IMPRESSION: Cardiomegaly without acute pulmonary process. No significant change from prior.
[2022-04-13 11:30] LABS: ALT 21 U/L (4-49); AST 30 U/L (17-59); African American GFR (CKD) >90 (>60 ml/min/1.73 sqM); Alkaline Phosphatase 114 U/L (38-126); Anion Gap 8 mmol/L; Blood Urea Nitrogen 20 mg/dL (9-20); Calcium 9.1 mg/dL (8.4-10.2); Carbon Dioxide 24 mmol/L (22-30); Chloride 104 mmol/L (98-107); Glucose 210 mg/dL (74-99); Non-African American GFR(CKD) 80 (>60 ml/min/1.73 sqM); Potassium 4.3 mmol/L (3.5-5.1); Sodium 136 mmol/L (137-145); Total Bilirubin 1.3 mg/dL (0.2-1.3); Total Protein 6.7 g/dL (6.3-8.2)
[2022-04-13 11:33] LABS: Partial Thromboplastin Time 24.9 sec (22.0-30.0); Prothrombin Time 10.7 sec (9.0-12.0)
--- NOTE | 2022-04-13 11:47 | CT ---
EXAMINATION TYPE: CT brain wo con DATE OF EXAM: 04/13/2022 HISTORY: Altered mental status. Hx of stroke. CT DLP: 1121.4 mGycm. Automated Exposure Control for Dose Reduction was Utilized. TECHNIQUE: CT scan of the head is performed without contrast. COMPARISON: CT brain from 1 day earlier and older studies FINDINGS: There is no acute intracranial hemorrhage or new midline shift identified. Stable slight 4 mm midline shift to the right axial image 26 redemonstrated. There is mild diffuse ventricular and sulcal prominence consistent with diffuse cerebral atrophy redemonstrated. There is severe low-atten uation in the deep and periventricular white matter consistent with chronic small vessel ischemic reese nge redemonstrated. Old infarct right posterior frontal level near axial image 36 is redemonstrated. Subacute left parietal-occipital infarct is again seen with superior temporal lobe extension. The gl obes are intact and the visualized sinuses are clear. IMPRESSION: No acute intracranial hemorrhage or midline shift. There is mild diffuse cerebral atrop hy and advanced chronic small vessel ischemic change redemonstrated. Stable subtle midline shift due to evolving known subacute infarct left posterior watershed region superior temporal extension. No s ignificant change from one day earlier.
[2022-04-13 12:26] LABS: Amphetamine Screen,Urine Not Detected (NotDetected); Barbiturate Screen,Urine Not Detected (NotDetected); Benzodiazepines Screen,Urine Not Detected (NotDetected); Cocaine Screen,Urine Not Detected (NotDetected); Methadone Screen, Urine Not Detected (NotDetected); Opiate Screen,Urine Not Detected (NotDetected); Oxycodone Screen, Urine Not Detected (NotDetected); Phencyclidine Screen,Urine Not Detected (NotDetected); Tricyclic Antidepressant,Urine Not Detected (NotDetected); Urn Cannabinoid Scrn Not Detected (NotDetected)
[2022-04-13 14:27] LABS: Glucose,Whole Blood 125 mg/dL (70-110)
[2022-04-13 14:44] VITALS: BP 135/68; PULSE 68
== END 2022-04-13 14:49 | disposition home or self-care (01) ==
LOC: EC 10:37
DX: R53.81 Other malaise (principal); E11.9 Type 2 diabetes mellitus without complications; E78.5 Hyperlipidemia, unspecified; I10 Essential (primary) hypertension; I25.2 Old myocardial infarction; E07.9 Disorder of thyroid, unspecified; Z86.73 Personal history of transient ischemic attack (TIA), and cerebral infarction without residual deficits; Z79.899 Other long term (current) drug therapy
CPT/HCPCS: 36415; 70450; 71046; 80053; 80306; 84484; 85025; 85610; 85730; 93005; 96360; 99285

== ENCOUNTER → 2022-05-07 | Outpatient (CLI) | payer MEDICARE ==
--- NOTE | 2022-05-08 03:50 | MR ---
EXAMINATION TYPE: MR angio head wo/neck wo/w con DATE OF EXAM: 05/07/2022 COMPARISON: None HISTORY: Stroke, left sided weakness. CONTRAST: Standard multiplanar, multisequence MRI departmental protocol images were obtained without contrast a nd with 7 mL intravenous Gadavist gadolinium contrast. There are 3-D post processed images. There is arterial flow in the distal internal carotid arteries bilaterally. There is arterial flow in the vertebral basilar artery system. There is arterial flow in the anterior middle and posterior cerebral arteries bilaterally. There is p atency of the anterior communicating artery. The left posterior cerebral artery fills through the lef t posterior communicating artery. No mass effect. No evidence of intracranial aneurysm or neovascularity. No evidence of hemodynamic st enosis. There is mixed signal noted in the left posterior temporal lobe consistent with old infarct w hich is also demonstrated on the old exam of 04/04/2022. No significant angiographic abnormalities see n in the left middle cerebral artery and left posterior cerebral artery in the area of infarct. IMPRESSION: Negative MR angiogram of the brain.
== END | disposition home or self-care (01) ==
LOC: RADMRIMAIN 13:37
PROVIDERS: ATTEND Psychiatry & Neurology Neurology
DX: I67.9 Cerebrovascular disease, unspecified (principal); I63.9 Cerebral infarction, unspecified
CPT/HCPCS: 70544; 70549; A9585

== ENCOUNTER → 2024-04-07 | Outpatient (CLI) | payer MEDICARE ==
--- NOTE | 2024-04-08 07:58 | XR ---
EXAMINATION TYPE: XR chest 2V DATE OF EXAM: 04/07/2024 COMPARISON: 04/13/2022 HISTORY: Shortness of breath TECHNIQUE: Frontal and lateral views of the chest are obtained. FINDINGS: Scattered senescent parenchymal changes noted. Hyperinflation compatible with COPD. No evidence for infiltrate. Small right-sided pleural effusion with basilar linear atelectasis. Heart size is stable. Mediastinal structures are stable and grossly unremarkable. No evidence for hilar prominence. Degenerative changes dorsal spine. IMPRESSION: 1. No evidence for acute pulmonary disease.
== END | disposition home or self-care (01) ==
LOC: RADXRMAIN 16:21
PROVIDERS: ATTEND Family Medicine
DX: R05.9 Cough, unspecified (principal)
CPT/HCPCS: 71046